=== PATIENT | male | born 1950 | race Caucasian/White ===

== ENCOUNTER 2022-04-26 10:53 | Emergency (ER) | payer MEDICARE, OTHER, SELFPAY ==
[2022-04-26 11:10] VITALS: BP 150/88; PULSE 66; RESP 18; TEMP 36.2; O2SAT 99
--- NOTE | 2022-04-26 11:12 | ED.URI ---
HPI - URI/Sore Throat General Chief Complaint: Upper Respiratory Infection Stated Complaint: sore throat, headache, congestion Time Seen by Provider: 04/26/22 11:12 Source: patient Mode of arrival: ambulatory Limitations: no limitations History of Present Illness HPI Narrative: 71-year-old male presents with complaint of sore throat, headache, fatigue, chills since yesterday. Reports exposure to strep from his 2 granddaughters. Denies nausea vomiting diarrhea. Reports mild congestion but no cough. All systems reviewed and negative except as noted above. Related Data Home Medications Medication Instructions Recorded Confirmed clonidine HCl 0.2 mg tablet 0.2 mg PO BID 04/26/22 04/26/22 loratadine 10 mg tablet (Claritin) 10 mg PO DAILY 04/26/22 04/26/22 losartan 100 1 tablet PO DAILY 04/26/22 04/26/22 mg-hydrochlorothiazide 25 mg tablet meloxicam 7.5 mg tablet 7.5 mg PO BID 04/26/22 04/26/22 metoprolol succinate 50 mg 50 mg PO DAILY 04/26/22 04/26/22 tablet,extended release 24 hr Allergies Allergy/AdvReac Type Severity Reaction Status Date / Time No Known Allergies Allergy Unknown Other Verified 04/26/22 11:09 Review of Systems Review of Systems: CONSTITUTIONAL: Denies fever. Reports chills and fatigue. EYES: Denies visual changes, redness, or discharge. ENT: Denies rhinorrhea, congestion. Reports sore throat. CARDIOVASCULAR: Denies chest pain, palpitations, or edema. RESPIRATORY: Denies cough or dyspnea. GASTROINTESTINAL: Denies abdominal pain, nausea, vomiting, or diarrhea. GENITOURINARY: Denies dysuria or hematuria. SKIN: Denies rash or itching. MUSCULOSKELETAL: Denies back pain, joint pain, or myalgia. NEUROLOGIC: Denies headache, numbness, or weakness. PSYCHIATRIC: Denies anxiety or depression. All other systems reviewed are negative, except as documented in HPI. PMFSH Comments At time of signature, agree with nursing past medical, surgical, social and family history. There is no relevant family history pertinent to the presenting complaint. Exam Narrative: GENERAL: This is a well-nourished, well-developed patient, in no apparent distress. HEAD: normocephalic, atraumatic. EYES: PERRL. Sclera clear/white. Vision is grossly intact. EARS: External ears normal, auditory canals clear and without drainage, TMs normal without perforation. Hearing grossly intact. NOSE: External nose normal with no obvious nasal discharge, nares without redness, no rhinorrhea. THROAT: Mucous membranes moist, erythema and swelling, no exudates. tonsils 1+ bilateral NECK: Neck supple, non-tender without lymphadenopathy, masses or thyromegaly. CARDIOVASCULAR: Regular rate and rhythm without murmurs, gallops, or rubs. RESPIRATORY: Clear to auscultation. Breath sounds equal bilaterally. No wheezes, rales, or rhonchi. SKIN: warm, Dry, intact with no suspicious lesions or rash, good texture and turgor. NEURO: awake, alert, and oriented to person, place and time. There were no obvious focal neurologic abnormalities. EXTREMITIES: No joint tenderness, effusion, or edema noted. Course Course Level of Care: Express Care Visit Vital Signs Vital signs: Vital Signs Temperature 36.2 C L 04/26/22 11:10 Pulse Rate 66 04/26/22 11:10 Respiratory Rate 18 04/26/22 11:10 Blood Pressure 150/88 H 04/26/22 11:10 Pulse Oximetry 99 04/26/22 11:10 Oxygen Delivery Room Air 04/26/22 11:10 Temperature 36.2 C L 04/26/22 11:10 Pulse Rate 66 04/26/22 11:10 Respiratory Rate 18 04/26/22 11:10 Blood Pressure 150/88 H 04/26/22 11:10 Pulse Oximetry 99 04/26/22 11:10 Oxygen Delivery Room Air 04/26/22 11:10 Reviewed MDM - URI/Sore Throat MDM Narrative Medical decision making narrative: Patient is aware of diagnosis, understands and agrees to treatment plan. Anticipatory guidance given. Patient agrees to follow-up as directed and is aware of reasons to seek care at the emergency department. Portions of this rec
== END 2022-04-26 11:28 | disposition home or self-care (01) ==
PROVIDERS: Emergency Provider Nurse Practitioner Family
DX: J02.0 Streptococcal pharyngitis (principal); I10 Essential (primary) hypertension; M10.9 Gout, unspecified
CPT/HCPCS: 99203; G0463

== ENCOUNTER 2023-06-21 12:48 | Outpatient (CLI) | payer MEDICARE, OTHER, SELFPAY ==
--- NOTE | 2023-06-21 13:11 | ECG_ITS ---
Measurements Intervals [place] Rate: 57 P: 41 [place]: 183 QRS: 60 QRSD: 112 T: 7 QT: 400 QTc: 391 Interpretive Statements SINUS BRADYCARDIA OTHERWISE NORMAL ECG NO PREVIOUS ECG AVAILABLE FOR COMPARISON Electronically Signed On 06-21-2023 14:01:44 SALES ENGAGEMENT MANAGER by Jon Bailon M.D.
[2023-06-21 13:39] LABS: Anion Gap 6 mmol/L (8-16); Blood Urea Nitrogen 17 mg/dL (9-20); Calcium 9.3 mg/dL (8.4-10.2); Carbon Dioxide 30 mmol/L (22-30); Chloride 106 mmol/L (98-107); Estimated Glomerular Filt Rate > 60; Glucose 162 mg/dL (65-110); Potassium 4.2 mmol/L (3.4-5.0); Sodium 142 mmol/L (137-145)
== END 2023-06-21 12:49 | disposition home or self-care (01) ==
LOC: ANHSURGERY 12:59
PROVIDERS: Anesthesiology; PCP Family Medicine; Visit Provider Surgery
DX: K40.90 Unilateral inguinal hernia, without obstruction or gangrene, not specified as recurrent (principal); I10 Essential (primary) hypertension; Z01.818 Encounter for other preprocedural examination
CPT/HCPCS: 36415; 80048; 86850; 86900; 86901; 93005

== ENCOUNTER 2023-06-27 01:10 | Day surgery (SDC) | payer MEDICARE, OTHER, SELFPAY ==
--- NOTE | 2023-06-17 14:10 | PC.NURSE ---
Report to the Outpatient Waiting Room, entrance under the green pavilion located off [facility], at time __1000 on date _06/27/23 . Planned Procedure Time: __1200 . Time changes happen often and if your time is changed the preop area will call you the afternoon before. - You and your visitor will be asked to self-screen and do not enter if you have any COVID symptoms. - A mask is optional within the hospital at this time. Patients may have clear liquids (water, carbonated beverages, clear teas, apple juice) until 3 hours prior to surgery(9:00AM) with a maximum of 20 ounces. - No food from midnight until time of surgery - Infants may have breast milk until 4 hours before surgery, infant formula 6 hours prior to surgery. - Children will be allowed to drink immediately following surgery. If applicable, please bring a bottle or sippy cup to assist with drinking. Juice, water, soda, and popsicles are readily available. For infants on formula, please bring formula the day of surgery. Pacifiers are allowed. Take the following medications with a SIP of water the morning of surgery: ___AMLODIPINE,CLONIDINE,METOPROLOL DO NOT STOP ANY OF YOUR OTHER PRESCRIPTION MEDICATIONS PRIOR TO SURGERY ?EXCEPT THE FOLLOWING Medications to discontinue per physician ____ALL VITAMINS AND SUPPLEMENTS 3 DAYS PRE OP .LAST DOSE 06/23/[address] FONG Please no make-up, nail macedonian, hairspray, perfume, deodorant, or body powder the day of surgery. No jewelry (including any body piercings) or valuables the day of surgery, leave them at home. Please take a shower or bath the night before, or the morning of, surgery with an antibacterial soap. Wear comfortable, loose fitting clothing. Children are encouraged to wear pajamas. - Jewelry must be removed prior to entering the operating room. Rings and piercings that are not removed may be cut off. - The hospital will not accept responsibility for valuables. - Please leave all valuables, including medications, at home the day of surgery. If you are going home after surgery, a licensed backhaul driver must drive you home. - NO public transportation without another adult if you receive anesthesia. - We recommend that an adult stay with you for 24 hours following discharge. - We also recommend that you do not drive, make important decision, drink alcoholic beverages, or take any drugs that were not prescribed by your health care provider for at least 24 hours after your discharge time. Follow any additional instructions given to you from your surgeon. If you or anyone in your household have experienced Covid symptoms in the past week, please notify your surgeon or the nurse liaison at the phone number below for possible testing. Telephone instructions given to __PATIENT and asked if any additional questions and then verbalized understanding. Patient advised to call surgeon office or pre surgery nurse liaison [phone] if any additional questions.
[2023-06-17 14:20] VITALS: BMI 28.9
[2023-06-27] VITALS (9 sets, daily range): BP systolic 122–177; BP diastolic 62–97; PULSE 56–77; RESP 12–17; TEMP 35.9–36.3; O2SAT 95–100
[2023-06-27] MEDS: ACETAMINOPHEN 500 MG TABLET 1000 MG PO (10:11)
[2023-06-27] MEDS: LACTATED RINGERS 1,000 ML 30 ML IV CONT ×3 (10:33→14:36)
[2023-06-27] MEDS: KETOROLAC 15 MG/ML VIAL (*BKC) IV PUSH (10:34)
--- NOTE | 2023-06-27 11:12 | WPDHPUPDATE1 ---
History and Physical Update Update Date/Time: 06/27/23 11:12 History and Physical has been reviewed, including an updated exam of the patient. There are NO changes in the patient's condition. Risks, benefits, and alternatives have been discussed and questions answered. Patient agrees to proceed with procedure.
--- NOTE | 2023-06-27 11:34 | P.PNAN_ITS ---
Anes - Initial Pre Proc Eval Procedure: Operation Date: 06/27/23 12:00 Proposed Procedures p Robotic Right Inguinal Hernia Repair with Mesh - Anneliese Dobbs MD Date/Time: 06/27/23 11:34 Surgeon: Anneliese Dobbs MD Pre Op Diagnosis: Rt Ing Hernia Patient Data Age: 72 Gender: M Height: 1.88 m Weight: 100.5 kg Last Vital Signs Temp 35.9 C L 06/27/23 10:37 Pulse 56 L 06/27/23 10:37 Resp 16 06/27/23 10:37 BP 130/81 06/27/23 10:37 Pulse Ox 98 06/27/23 10:37 O2 Del Method Room Air 06/27/23 10:37 Allergies Allergy/AdvReac Type Severity Reaction Status Date / Time No Known Allergies Allergy Unknown Other Verified 06/27/23 09:59 Home Medications Medication Instructions Recorded Confirmed Type clonidine HCl 0.2 mg tablet 0.2 mg PO BID 04/26/22 06/17/23 History loratadine 10 mg tablet (Claritin) 10 mg PO PRN PRN Allergy Symptoms 04/26/22 06/17/23 History losartan 100 1 tablet PO DAILY 04/26/22 06/17/23 History mg-hydrochlorothiazide 25 mg tablet meloxicam 7.5 mg tablet 7.5 mg PO BID 04/26/22 06/17/23 History metoprolol succinate 50 mg 25 mg PO DAILY 04/26/22 06/17/23 History tablet,extended release 24 hr amlodipine 10 mg tablet 10 mg PO DAILY 06/17/23 06/17/23 History multivit,calcium,min-folic acid 1 tablet PO DAILY 06/17/23 06/17/23 History 240 mcg-D3 25 mcg-lycop 300 mcg tablet (One A Day Men Complete) omega-3 fatty acids 1,250 mg PO DAILY 06/17/23 06/17/23 History Patient hx anesthesia problems: none Family hx anesthesia problems: none Results Review: All pre-operative results and documents have been reviewed as part of the pre- operative evaluation. [facility] Past Medical History Medical History Hypertension Surgical History Surgical History History of back surgery Hx of hernia repair Family History Family History Other Diabetes mellitus Hypertension Social History Social History Smoking status: Never smoker Smokeless tobacco user: chewing tobacco Alcohol intake: current Alcohol use details: rarely Living arrangements: with family Occupation/Education: retired Spiritual care concerns: No Anes - Eval Final PreProcedure Day of Procedure 06/27/23 11:34 Patient weight: overweight Heart: regular rate and rhythm Lungs: clear to auscultation Airway: Mallampati scale class II Neurological: alert and oriented Last oral intake: >/= 8 hours ASA classification: II Emergent: no Anesthetic plan: proceed Anesthesia type and monitoring: general ETT and standard monitoring Results Review: All pre-operative results and documents have been reviewed as part of the pre- operative evaluation. Informed Consent: The patient's anesthetic plan and its attendant risks and benefits were discussed with the patient/family/POA. Questions were solicited and answers provided to the satisfaction of the patient/family/POA.
[2023-06-27] MEDS: ONDANSETRON INJ 4 MG/2 ML VIAL IV PUSH (11:42)
[2023-06-27] MEDS: FAMOTIDINE 20 MG/2 ML VIAL IV PUSH (11:42)
[2023-06-27] MEDS: ceFAZolin 2 GM/D5W 50 ML 2 GM/50 ML BAG IVPB (11:52)
[2023-06-27] MEDS: BUPIVACAINE/EPINEPHRINE 0.5% 30 ML VIAL INFILTRATE (12:58)
--- NOTE | 2023-06-27 13:02 | P.OP_ITS ---
Procedure Note - Detailed Date of Procedure 06/27/23 Pre-op Diagnosis Incarcerated right inguinal hernia Post-op Diagnosis Same Procedure Performed robotic assisted incarcerated right inguinal hernia repair with mesh Surgeon Anneliese Dobbs MD Anesthesia General Indications 72-year-old male with progressively worsening right inguinal hernia over the last few years Findings indirect right inguinal hernia with incarcerated loop of small intestine Description of Procedure Patient was brought into the operating room and placed in the supine position. After adequate induction of general anesthesia, the patient was prepped and draped in normal sterile fashion. A time-out was then done to verify the patient's identity, as well as the procedure being performed. Began by making a 8 mm incision in the supraumbilical region, a Veress needle was then placed into the peritoneal cavity. CO2 gas was then insufflated and after adequate pneumoperitoneum was achieved, the Veress needle was removed. I then placed an 8 mm trocar through this incision. I then placed the endoscope through this trocar site and under direct visualization placed 2 further 8 mm ports in the right and left mid abdomen. The [employer] robot was then docked to the 3 trocar sites. I then scrubbed out and went to the robotic console. Upon examining the pelvis, it was noted that the patient had a large right inguinal hernia. Of note, there was a loop of small intestine within the hernia. Using very careful and gentle dissection and traction I was able to reduce the small bowel back into the abdominal cavity. The left side was examined and no hernia defect was noted. I began by making a preperitoneal flap approximately 6 cm superior to the defect. This flap was carried medially past the umbilical ligaments in laterally to the transversalis. It then began dissection of my medial compartment taking this down to the pubic tubercle. I then began the lateral dissection taking this down to the transversalis fascia. Once these compartments were achieved, I began dissection around the cord structures. A large indirect hernia was noted at this point. Using careful dissection, was able to reduce indirect hernia sac off the cord structures. Once this was adequately done, I went ahead and placed a large piece of 3D Max mesh into the abdominal cavity. The mesh was carefully positioned, centering the center of the mesh over the indirect defect. Once this was done, was very satisfied with our repair. Using 3-0 Vicryl sutures, I tacked the mesh medially to Javy's ligament. Two lateral sutures were placed from the mesh to the transversalis fascia. I then closed the peritoneal flap with a running 2.0 V Lock suture. The abdomen was then desufflated, and all ports were removed. All incisions were then closed with the 4.0 monocryl suture. Dermabond was placed on each wound. The patient tolerated the procedure well, was extubated in the operating room postoperatively, and will now be transferred to the recovery room in stable condition. Implants large 3DMax mesh Estimated Blood Loss 10 Drains No Packing No Pathology None sent Complications No immediate complications Condition Stable Disposition PACU [facility] Billing Surgery - Charge Forward: Surgery Billing
[2023-06-27] MEDS: fentaNYL CITRATE INJ (*CRX) 100 MCG/2 ML VIAL 25 MCG IV PUSH ×2 (13:34→13:36)
== END 2023-06-27 15:25 | disposition home or self-care (01) ==
PROVIDERS: PCP Family Medicine; Visit Provider Surgery
PROC: 8E0Y4CZ Robotic Assisted Procedure of Lower Extremity, Percutaneous Endoscopic Approach (ICD-10-PCS; CPT 49650; principal; 2023-06-27 12:00)
DX: K40.30 Unilateral inguinal hernia, with obstruction, without gangrene, not specified as recurrent (principal); I10 Essential (primary) hypertension; F17.220 Nicotine dependence, chewing tobacco, uncomplicated
CPT/HCPCS: 49650; S2900; A9270; C1781; J0690; J1100; J1885; J2001; J2250; J2405; J2704; J3010; J7120

== ENCOUNTER 2023-08-22 12:14 | Outpatient (CLI) | payer MEDICARE, OTHER, SELFPAY ==
--- NOTE | 2023-08-28 18:09 | WPDHOMESLEEP ---
Sleep Study - Home Unattended Date of Study: 08/22/23 Ordering Provider: Shawn Berry DO Interpreting Provider: Dayana Almonte DO Home Sleep Study Type: Watch PAT Height: 1.88 m Weight: 102.058 kg Body Mass Index: 28.8 Neck Circumference (inches): 16 [place]: 10 Reason for Sleep Study Daytime hypersomnia Sleep History The patient is a 73-year-old male that had a sleep study ordered by his primary care physician for evaluation of sleep apnea. The patient denies awakening from sleep short of breath. He denies awakening at night with heartburn, belching or cough. He rarely snores and it is rarely loud enough that others complain. He rarely has trouble sleeping when he has a cold. He denies waking up gasping for air throughout the night. He denies having breathing problems at night observed by himself or others. He rarely sweats excessively at night. He rarely has heart palpitations or irregular heartbeats during the night. He occasionally falls asleep during the day but never while driving. He denies sleep paralysis and cataplexy. He rarely has trouble at school or work due to sleepiness. He occasionally experiences vivid dreamlike scenes upon awakening or falling asleep. He denies feeling afraid of going to sleep. He occasionally remembers his dreams. He occasionally has thoughts racing through his mind. He occasionally feels sad or depressed. He constantly has anxiety. He rarely has muscular tension. He denies noticing parts of his body jerk. He rarely kicks during the night. He occasionally has crawling and aching feelings in his legs and rarely has leg pain during the night. He occasionally grinds his teeth during sleep but never awakens with morning jaw pain. He is occasionally bothered by pain during the day but rarely awakened by pain during the night. He occasionally wakes up feeling stiff in the morning. He occasionally wakes up with sore or achy muscles. He frequently wakes up with pain in the neck, spine and other joints. He goes to bed at 9:30 p.m. on both weekdays and weekends. It takes him 15-30 minutes to fall asleep. He wakes up 3 times throughout the night for unknown reasons but is able to fall right back asleep. He wakes up at 4:00 a.m. on both weekdays and weekends. He typically gets 6.5 hours of sleep per night. He does not stay in bed after waking up in the morning. He currently lives with his . He denies consuming any caffeinated beverages within 2 hours of bedtime. He denies engaging in physical exercise before bedtime. He will read before falling asleep. He denies watching television before falling asleep. He will take naps in the afternoon or the evening and they are refreshing. He consumes 4 cups of coffee per day. He quit using tobacco 40 years ago. He denies alcohol and recreational drug use. [facility] Past Medical History Medical History Hypertension Surgical History Surgical History History of back surgery History of right inguinal hernia robotic assisted incarcerated right inguinal hernia repair with mesh 06/27/23 Dr. Dobbs Family History Family History Father Asthma Hypertension Malignant neoplasm of prostate Sibling Diabetes mellitus Hypertension Breast cancer Social History Social History Social History: caffeine 3-4 cups coffee daily Smoking status: Never smoker Smokeless tobacco user: chewing tobacco Alcohol intake: former Substance use: never Do You Feel Safe in your Home?: No Lack of Transportation: No Lack of Food: Never True Current Housing: I Have Housing Concerned About Future Housing: No Difficulty Paying Gas/Electric Bills: No Difficulty Paying for Meds: No Currently Unemployed: No Educat
[2023-08-28 18:17] VITALS: BMI 28.8
== END 2023-08-23 12:24 | disposition home or self-care (01) ==
LOC: ANHCSM 12:15
PROVIDERS: PCP Family Medicine; Visit Provider Family Medicine
DX: G47.10 Hypersomnia, unspecified (principal); G47.33 Obstructive sleep apnea (adult) (pediatric)
CPT/HCPCS: 95800; 95806

== ENCOUNTER 2024-01-08 08:33 | Outpatient (CLI) | payer MEDICARE, OTHER, SELFPAY ==
[2024-01-08 13:15] LABS: Basophils Absolute Auto 0.1 K/mm3 (0.0-0.1); Eosinophils Absolute Auto 0.8 K/mm3 (0-0.3); Eosinophils Percent Auto 10.7 % (0-4.4); Hematocrit 47.2 % (42.0-52.0); Hemoglobin 14.9 g/dL (14.0-18.0); Immature Granulocyte Absolute 0.02 K/mm3 (0.00-0.031); Immature Granulocyte Percent A 0.3 % (0-0.5); Lymphocytes Absolute Auto 2.23 K/mm3 (0.9-3.2); Lymphocytes Percent Auto 28.8 % (18.3-44.2); Mean Corpuscular HGB Conc 31.6 g/dl (32-36); Mean Corpuscular Hemoglobin 28.5 pg (26-34); Mean Corpuscular Volume 90.4 fl (80-100); Mean Platelet Volume 10.7 fl (7.4-10.4); Monocytes Absolute Auto 0.6 K/mm3 (0.1-0.6); Monocytes Percent Auto 7.8 % (2.6-8.5); Neutrophils Percent Auto 51.4 % (45.5-73.1); Platelet Count Result 317 k/mm3 (150-375); Red Blood Count 5.22 M/mm3 (4.6-6.20); Red Cell Distribution Width 14.6 % (11.5-14.5); White Blood Count 7.7 K/mm3 (4.5-10.0)
[2024-01-08 13:43] LABS: Alanine Aminotransferase 29 U/L (6-50); Albumin Level 4.3 g/dL (3.5-5.1); Alkaline Phosphatase 101 U/L (38-126); Anion Gap 11 mmol/L (4-12); Aspartate Amino Transferase 36 U/L (17-59); Bilirubin,Total 0.6 mg/dL (0.2-1.3); Blood Urea Nitrogen 24 mg/dL (9-20); Calcium 9.3 mg/dL (8.4-10.2); Carbon Dioxide 27 mmol/L (22-30); Chloride 103 mmol/L (98-107); Cholesterol 174 mg/dL (0-200); Estimated Glomerular Filt Rate > 60; Glucose 109 mg/dL (65-110); HDL Direct 52 mg/dL; Sodium 141 mmol/L (137-145); Triglycerides 48 mg/dL (<150)
[2024-01-08 13:59] LABS: LDL Cholesterol Direct 101 mg/dL
[2024-01-08 14:21] LABS: Prostate Specific Antigen 1.2 ng/mL (< OR = 4.0)
== END 2024-01-08 08:34 | disposition home or self-care (01) ==
LOC: ANHGOSHLAB 08:34
PROVIDERS: PCP Family Medicine; Visit Provider Family Medicine
DX: R53.83 Other fatigue (principal); Z13.228 Encounter for screening for other metabolic disorders; E78.5 Hyperlipidemia, unspecified; Z12.5 Encounter for screening for malignant neoplasm of prostate
CPT/HCPCS: 36415; 80053; 80061; 84153; 85025; G0103

== ENCOUNTER 2024-05-28 15:38 | Outpatient (CLI) | payer MEDICARE, OTHER, SELFPAY ==
[2024-05-28 20:39] LABS: Alanine Aminotransferase 26 U/L (6-50); Albumin Level 4.3 g/dL (3.5-5.1); Alkaline Phosphatase 116 U/L (38-126); Anion Gap 9 mmol/L (4-12); Aspartate Amino Transferase 24 U/L (17-59); Bilirubin,Total 0.5 mg/dL (0.2-1.3); Blood Urea Nitrogen 15 mg/dL (9-20); Calcium 9.4 mg/dL (8.4-10.2); Carbon Dioxide 24 mmol/L (22-30); Chloride 105 mmol/L (98-107); Estimated Glomerular Filt Rate > 60; Glucose 108 mg/dL (65-110); Potassium 3.8 mmol/L (3.4-5.0); Sodium 138 mmol/L (137-145)
[2024-05-28 20:56] LABS: Vitamin D 25 Hydroxy 32.2 ng/mL
[2024-05-28 21:16] LABS: Hemoglobin A1C 6.3 % (<5.7)
== END 2024-05-28 15:39 | disposition home or self-care (01) ==
LOC: ANHGOSHLAB 15:39
PROVIDERS: PCP Family Medicine; Visit Provider Family Medicine
DX: R73.9 Hyperglycemia, unspecified (principal); I10 Essential (primary) hypertension; E53.8 Deficiency of other specified B group vitamins; E55.9 Vitamin D deficiency, unspecified
CPT/HCPCS: 36415; 80053; 82306; 82607; 83036; 84443

== ENCOUNTER 2024-07-27 12:56 | Outpatient (CLI) | payer MEDICARE, OTHER, SELFPAY ==
--- OUTSIDE RECORDS SUMMARY | 2024-07-27 14:56 | XMS_ITS | Patient Health Summary ---
Author Organization [facility] Address [address] [place] [address] Care Team Providers Care Jackerman Name Role Phone Curt Neri MD Primary Care Provider [phone] Note from [facility] [place],non-owned Affiliates and Associated Physician Practices is amultiple site organization consisting of ambulatory clinics and hospital sitesin [place], [place], [place] and [place]. This disclosure is being madepursuant to the Care Everywhere program and may not contain all information available regarding this patient. Last updated 18.[facility] [employer] Allergies No known active allergies Medications * Be aware that medications may not be up to date on this document. Alwaysverify current medications with the patient. * MELOXICAM PO * Febuxostat (ULORIC PO) Social History Tobacco Use Types Packs/Day Years Used Date Smoking Tobacco: Former Smokeless Tobacco: Never Sex and Gender Information Value Date Recorded Sex Assigned at Not on file Gender Identity Not on file Sexual Orientation Not on file Last Filed Vital Signs Vital Sign Reading Time Taken Comments Blood Pressure 140/80 02/07/2018 11:35 AM CDT Pulse 60 02/07/2018 11:35 AM CDT Temperature 36.7 C (98 F) 02/07/2018 11:35 AM CDT Respiratory Rate 16 02/07/2018 11:35 AM CDT Oxygen Saturation 98% 02/07/2018 11:35 AM CDT Inhaled Oxygen Concentration - - Weight 102.1 kg (225 lb) 02/07/2018 11:35 AM CDT Height 188 cm (6' 2 ) 02/07/2018 11:35 AM CDT Body Mass Index 28.89 02/07/2018 11:35 AM CDT Care Teams Jackerman Relationship Specialty Start Date End Date Curt Neri MD [address] [place] [phone] PCP - General Family Medicine 02/07/18
--- OUTSIDE RECORDS SUMMARY | 2024-07-27 14:56 | XMS_ITS | Continuity of Care Document ---
Author Organization [facility] Address [address] [place] [address] Phone Care Team Providers Care Broiler Manager Name Role Phone Jerad PEACE Radha Unavailable Unavailable Allergies, Adverse Reactions, Alerts [...] Diagnoses Date Provider Providers Copied on Encounter [facility], [address], [place], [place], [address], tel:[phone] SEC [place] Professional Post-Op (chief complaint) Post op visit 4 Jerad OD Radha. [address], [address], [place], [place], [address], [place]. tel:[phone] Referring Provider: Twyla Crenshaw OD, [address], [address]. tel:[phone] [facility], [address], [place], [place], [address], [place] tel:[phone] SEC [place] Professional 1 Day CE/IOL PO (chief complaint) Post op visit 4 Jerad OD Radha. [address], [address], [place], [place], [address], [place]. tel:[phone] Referring Provider: Twyla Crenshaw OD, [address], [address]. tel:[phone] [facility], [address], [place], [place], [address], tel:[phone] [facility] [place] No Information 4 Betty Lira. [address], [address], [place], [place], [address], [place]. tel:[phone] Referring Provider: Twyla Crenshaw OD, [address], [place], [address]. tel:[phone] [facility], [address] [employer], [place], [place], [address], [place] tel:[phone] SEC [place] No Information Aug- 4 Betty Pankaj. [address] [employer], [address], [place], [place], [address], [place]. tel:[phone] Referring Provider: Agustin Crenshaw OD, [address], [address]. tel:[phone] [facility], [facility] [employer] [facility] [address], [place], [place], [address], [place] tel:[phone] SEC Royal DANIELLE Professional Post-Op (chief complaint) Post op visit Aug-0 4 Cate OD Carly. [address] [place], [place] [address] [address], [address], [place], [place], [address], [place]. tel:[phone] Referring Provider: Twyla Crenshaw OD, [address], [place], [address]. tel:[phone] [facility], [address], [place], [place], [address], [place] tel:[phone] SEC Royal DANIELLE Professional 1 Day CE/IOL PO (chief complaint) Post op visit Jul-2 4 Jerad OD Radha. [facility] [employer], [address], [place], [place], [address], [place]. tel:[phone] Referring Provider: Twyla Crenshaw OD, [facility] [address] [place] [address], [place], [address]. tel:[phone] [facility], [address] [place] [address], [place], [place], [address], [place] tel:[phone] [facility] [place] No Information Jul- 4 Betty Pankaj. [address], [address], [place], [place], [address], [place]. tel:[phone] Referring Provider: Twyla Crenshaw OD, [facility] [address] [facility], [place], [address]. tel:[phone] [facility], [address] [place] [address], [place], [place], [address], [place] tel:[phone] [place] No Information 4 Boswell Pankaj. [address], [address], [place], [place], [address], [place]. tel:[phone] Referring Provider: Agustin Crenshaw OD, [address], [address]. tel:[phone] [facility], [address] [place] [address], [place], [place], [address], [place] tel:[phone] [place] No Information 4 Betty Pankaj. [address], [address], [place], [place], [address], [place]. tel:[phone] Office/outpa tient Visit, [facility], [address] [place] [address], [place], [place], [address], [place] tel:[phone] SEC [place] SHASHI Professional Cataract evaluation (chief complaint) Age-related nuclear cataract, bilateralCho rioretinal scar of right eye 4 Betty Pankaj. [address] [place] [address], [address], [place], [place], [address], [place]. tel:[phone] Referring Provider: Twyla Crenshaw OD, [facility] [address] [facility], [place], [address]. tel:[phone] [facility], [address] [place] [address], [place], [place], [address], [place] tel:[phone] SEC Edgardo BONDS No Information 3 Betty Lira. [address], [address], [place], [place], [address], [place]. tel:[phone] Referring Provider: Agustin Crenshaw OD, [address], [address]. tel:[phone] Family History Family Member Type Diagnosis Age At Onset Problem Family history of Diabetes m juana Payers Payer name Insurance type Covered democrat ID Authoriza tion(s) No Information Social History [...] counseling completed Goal Tobacco cessation counseling completed History Of Present Illness Encounter Date Complaint [...]
--- OUTSIDE RECORDS SUMMARY | 2024-07-27 14:56 | XMS_ITS | Clinical Summary ---
Author Organization [facility] Address [address] [place] [address] Phone Care Team Providers Care Groundhand Name Role Phone LAURITA YOUNGBLOOD MD Primary Care Provider [phone] Reason for Visit and Chief Complaint CHART UPDATE Problems Includes: Problems addressed during this encounter and other active Problems All Visits Onset Date Resolved Date Provider Condition S tatus Spinal Stenosis Lumbosacral 10/08/2014 LAURITA YOUNGBLOOD MD Active Last Documented On 10/08/2014 12:25AM ; [facility] Note: Unchanged Lumbago 08/25/2014 LAURITA YOUNGBLOOD MD Active Last Documented On 08/25/2014 11:39AM ; [facility] Note: Unchanged Osteoarthritis Knee 07/07/2013 ADOLFO HERMOSILLO MD Active Last Documented On 04/27/2021 3:36PM ; [facility] Note: Unchanged - -right 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 07/07/2013 LAURITA YOUNGBLOOD MD Active Last Documented On 11/23/2019 1:09AM ; [facility] Note: Unchanged Gout 03/03/2012 LAURITA YOUNGBLOOD MD Active Last Documented On 03/03/2012 3:18PM ; [facility] Note: Unchanged Osteoarthritis Ankle / Foot (Multiple Joints) 03/03/2012 LAURITA YOUNGBLOOD MD Active Last Documented On 03/03/2012 3:18PM ; [facility] Note: Unchanged - BILATERAL FEET Sinus Bradycardia 03/09/2010 LAURITA YOUNGBLOOD MD Active Last Documented On 03/09/2010 1:06PM ; [facility] Note: Unchanged Essential Hypertension Benign 03/09/2010 LAURITA YOUNGBLOOD MD Active Last Documented On 03/09/2010 1:06PM ; [facility] Note: Unchanged Nicotine Dependence in Remission 03/09/2010 LAURITA YOUNGBLOOD MD Active Last Documented On 07/02/2013 4:24PM ; [facility] Note: Unchanged - 1-2 TJ YR HX QUIT 198 0 Plan of Treatment No Plan of Treatment Recorded Assessments Includes: Assessments from this encounter No Assessments Recorded Medical Equipment - Implanted Devices Includes: Current Devices No Medical Equipment Recorded Medications Includes: Medications discussed during this encounter and other current Medications Current Medications (continue as prescribed) amLODIPine Besylate 10 MG Oral Tablet 10/07/2023 Provider: LAURITA YOUNGBLOOD MD Diagnosis: Essential (prima ry) hypertension TAKE 1 TABLET BY MOUTH EVERY DAY Last Documented On 10/07/2023 5:21AM By J LUIS YOUNGBLOOD MD ; [facility] Daily Multivitamin Oral Capsule 12/05/2020 Provider: Diagnosis: Last Documented On 12/05/2020 8:27AM By Josefa Narayan Roxy ; [facility] ZyrTEC Allergy 10 MG Oral Capsule 11/04/2019 Provide r: Diagnosis: Last Documented On 11/04/2019 8:36AM By Kailyn Clay Roxy ; [facility] Medications Administered Includes: Administered Medications from this encounter No Administered Medications Recorded Results Includes: Results discussed during this encounter No Results Recorded For Specified Dates History of Present Illness Includes: History of Present Illness from this encounter No History of Present Illness Recorded Social History No Social History Recorded - Smoking Status Unknown Medical History Includes: Medical History addressed during this encounter No Medical History Recorded Family History Includes: Family History addressed during this encounter No Family History Recorded Review of Systems Includes: Review of Systems from this encounter No Review of Systems Recorded Mental Status Includes: Mental Status from this encounter No Mental Status Recorded Functional Status Includes: Functional Status from this encounter No Functional Status Recorded Physical Exam Includes: Physical Exam from this encounter No Physical Exam Recorded Immunizations Includes: Immunizations addressed during this encounter Vaccine Dose # Date Site Reaction(s) Status Source Fluad, Quadravalent 1 02/26/2023 Right Deltoid Complete (Reported) Patient Last Documented On 3 8:58AM ; [facility] Fluzone High-dose Quadrivalent 1 01/26/2020 Left Deltoid Complete (Reported) Pat ient Last Documented On 3 8:58AM ; [facility] Fluzone High-dose Quadrivalent 2 02/15/2021 Left Deltoid Complete (Reported) Pat ient Last Documented On 3 8:58AM ; [facility] Fluzone High-dose Quadrivalent 3 02/11/2022 Left Deltoid Complete (Reported) Pat ient Last Documented On 3 8:58AM ; [facility] Influenza (High dose ) PF 2 02/26/2018 Left Deltoid Complete (Reported) Patient Last Documented On 3 8:58AM ; [facility] Influenza (High dose ) PF 3 02/17/2019 Left Deltoid Complete (Reported) Patient Last Documented On 3 8:58AM ; [facility] Influenza (Trivalent) split virus-PF (ID) 1 03/07/2016 Left Deltoid Complete (Reported) Pa tient Last Documented On 3 8:58AM ; [facility] Tdap (Boostrix) 1 04/28/2013 Left Deltoid Complete (Reported) Patient Last Documented On 3 8:58AM ; [facility] Allergies Includes: Active Allergies Substance Type Reaction Onset Date Resolved Date Statu s SEASONAL Allergy 11/04/2019 Active Last Documented On 4 10:43AM ; [facility] Encounters Encounter Provider Location Date Check-In Time Check-Out Time Diagnosis CHART UPDATE LAURITA YOUNGBLOOD MD 03/12/2023 8:57AM 11:59PM Insurance Includes: Active Insurance Policies Plan Name Member ID Group # Subscriber Relationship Effect guy Dates 1 - MEDICARE PART A CLAIMS/NGS [id number] LEIA Goddard 07/18/2017 - Unknown 2 - [employer] [id number] LEIA Goddard Clinical Notes Includes: Clinical Notes from this encounter No Clinical Notes Recorded
--- OUTSIDE RECORDS SUMMARY | 2024-07-27 14:56 | XMS_ITS | Clinical Summary ---
Author Organization [facility] Address [address] [place] [address] Phone Care Team Providers Care Knife Edger Name Role Phone LAURITA YOUNGBLOOD MD Primary Care Provider [phone] Reason for Visit and Chief Complaint IMMUNIZATIONS Problems Includes: Problems addressed during this encounter and other active Problems All Visits Onset Date Resolved Date Provider Condition S tatus Spinal Stenosis Lumbosacral 10/08/2014 LAURITA YOUNGBLOOD MD Active Last Documented On 10/08/2014 12:25AM ; [facility] Note: Unchanged Lumbago 08/25/2014 LAURITA YOUNGBLOOD MD Active Last Documented On 08/25/2014 11:39AM ; [facility] Note: Unchanged Osteoarthritis Knee 07/07/2013 ADOLFO HERMOSILLO MD Active Last Documented On 04/27/2021 3:36PM ; [facility] Note: Unchanged - -right 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 07/07/2013 LAURITA YOUNGBLOOD MD Active Last Documented On 11/23/2019 1:09AM ; [facility] Note: Unchanged Gout 03/03/2012 LAURITA YOUNGBLOOD MD Active Last Documented On 03/03/2012 3:18PM ; [facility] Note: Unchanged Osteoarthritis Ankle / Foot (Multiple Joints) 03/03/2012 LAURITA YOUNGBLOOD MD Active Last Documented On 03/03/2012 3:18PM ; [facility] Note: Unchanged - BILATERAL FEET Sinus Bradycardia 03/09/2010 LAURITA YOUNGBLOOD MD Active Last Documented On 03/09/2010 1:06PM ; [facility] Note: Unchanged Essential Hypertension Benign 03/09/2010 LAURITA YOUNGBLOOD MD Active Last Documented On 03/09/2010 1:06PM ; [facility] Note: Unchanged Nicotine Dependence in Remission 03/09/2010 LAURITA YOUNGBLOOD MD Active Last Documented On 07/02/2013 4:24PM ; [facility] Note: Unchanged - 1-2 TJ YR HX [...] 5:21AM By J LUIS YOUNGBLOOD MD ; [facility] Daily Multivitamin Oral Capsule 12/05/2020 Provider: Diagnosis: Last Documented On 12/05/2020 8:27AM By Josefa Narayan Roxy ; [facility] ZyrTEC Allergy 10 MG Oral Capsule 11/04/2019 Provide r: Diagnosis: Last Documented On 11/04/2019 8:36AM By Kailyn BARBA ; [facility] Medications Administered Includes: Administered Medications from this [...] Dose # Date Site Reaction(s) Status Source COVID-19, unspecified 1 02/27/2023 Left Arm Complete (Reported) Patient Last Documented On 02/27/2023 2:30PM ; [facility] Note: Pt got Covid booster at [facility]. Allergies Includes: Active Allergies Substance Type Reaction Onset Date Resolved Date Statu s SEASONAL Allergy 11/04/2019 Active Last Documented On 4 10:43AM ; [facility] Encounters Encounter Provider Location Date Check-In Time Check-Out Time Diagnosis IMMUNIZATIONS LAURITA YOUNGBLOOD MD 02/27/2023 2:27PM 11:59PM Insurance Includes: Active Insurance Policies Plan Name Member ID Group # Subscriber Relationship Effect guy Dates 1 - MEDICARE PART A CLAIMS/NGS [id number] LEIA Goddard 07/18/2017 - Unknown 2 - [employer] [id number] LEIA Goddard Clinical Notes Includes: Clinical Notes from this encounter No Clinical Notes Recorded
--- OUTSIDE RECORDS SUMMARY | 2024-07-27 14:56 | XMS_ITS | Clinical Summary ---
Author Organization [facility] Address [address] [place] [address] Phone Care Team Providers Care Staffing Specialist Name Role Phone LAURITA YOUNGBLOOD MD Primary Care Provider [phone] Reason for Visit and Chief Complaint * PHONE CALL Problems Includes: Problems addressed during this encounter and other active Problems All Visits Onset Date Resolved Date Provider Condition S tatus Spinal Stenosis Lumbosacral 10/08/2014 LAURITA YOUNGBLOOD MD Active Last Documented On 10/08/2014 12:25AM ; [facility] Note: Unchanged Lumbago 08/25/2014 LAURITA YOUNGBLOOD MD Active Last Documented On 08/25/2014 11:39AM ; [facility] Note: Unchanged Osteoarthritis Knee 07/07/2013 ADOLFO HERMOSILLO MD Active Last Documented On 04/27/2021 3:36PM ; [facility] Note: Unchanged - -right 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 07/07/2013 LAURITA YOUNGBLOOD MD Active Last Documented On 11/23/2019 1:09AM ; [facility] Note: Unchanged Gout 03/03/2012 LAURITA YOUNGBLOOD MD Active Last Documented On 03/03/2012 3:18PM ; [facility] Note: Unchanged Osteoarthritis Ankle / Foot (Multiple Joints) 03/03/2012 LAURITA YOUNGBLOOD MD Active Last Documented On 03/03/2012 3:18PM ; [facility] Note: Unchanged - BILATERAL FEET Sinus Bradycardia 03/09/2010 LAURITA YOUNGBLOOD MD Active Last Documented On 03/09/2010 1:06PM ; [facility] Note: Unchanged Essential Hypertension Benign 03/09/2010 LAURITA YOUNGBLOOD MD Active Last Documented On 03/09/2010 1:06PM ; [facility] Note: Unchanged Nicotine Dependence in Remission 03/09/2010 LAURITA YOUNGBLOOD MD Active Last Documented On 07/02/2013 4:24PM ; [facility] Note: Unchanged - 1-2 TJ YR [...] 5:21AM By J LUIS YOUNGBLOOD MD ; [facility] Daily Multivitamin Oral Capsule 12/05/2020 Provider: Diagnosis: Last Documented On 12/05/2020 8:27AM By Josefa Narayan Roxy ; [facility] ZyrTEC Allergy 10 MG Oral Capsule 11/04/2019 Provide r: Diagnosis: Last Documented On 11/04/2019 8:36AM By Kailyn Clay Roxy ; [facility] Past Medications on file cloNIDine HCl 0.2 MG Oral Tablet 08/02/2023 - 01/29/2024 Provider: LAURITA YOUNGBLOOD MD Diagnosis: Essential (prima ry) hypertension TAKE 1 TABLET BY MOUTH TWICE A DAY Last Documented On 08/02/2023 1:14AM By J LUIS YOUNGBLOOD MD ; [facility] Metoprolol Succinate ER 25 MG Oral Tablet Extended Release 24 Hour 08/02/2023 - 01/29/2024 Provider: LAURITA YOUNGBLOOD MD Diagnosis: Essential (prima ry) hypertension TAKE 1 TABLET BY MOUTH EVERY DAY Last Documented On 08/02/2023 1:14AM By J LUIS YOUNGBLOOD MD ; [facility] Losartan Potassium-HCTZ 100-25 MG Oral Tablet 06/18/2023 - 12/15/2023 Provider: LAURITA YOUNGBLOOD MD Diagnosis: Essential (prima ry) hypertension TAKE 1 TABLET BY MOUTH EVERY DAY Last Documented On 06/18/2023 1:23PM By J LUIS YOUNGBLOOD MD ; [facility] Meloxicam 7.5 MG Oral Tablet 06/18/2023 - 12/15/2023 Amina yo: LAURITA YOUNGBLOOD MD Diagnosis: TAKE 1 TABLET BY MOUTH TWICE A DAY Last Documented On 06/18/2023 1:23PM By J LUIS YOUNGBLOOD MD ; [facility] Medications Administered Includes: Administered Medications from this [...] from this encounter No Physical Exam Recorded Allergies Includes: Active Allergies Substance Type Reaction Onset Date Resolved Date Statu s SEASONAL Allergy 11/04/2019 Active Last Documented On 10:43AM ; [facility] Encounters Encounter Provider Location Date Check-In Time Check-Out Time Diagnosis * PHONE CALL LAURITA YOUNGBLOOD MD 01/25/2023 10:45AM 11:59PM Insurance Includes: Active Insurance Policies Plan Name Member ID Group # Subscriber Relationship Effect guy Dates 1 - MEDICARE PART A CLAIMS/NGS [id number] LEIA Goddard 07/18/2017 - Unknown 2 - [employer] [id number] LEIA Goddard Clinical Notes Includes: Clinical Notes from this encounter * Progress note Date Encounter Last Documented by 01/25/2023 * PHONE CALL Last documented on 03/22/2023; 1:02 PM, LAURITA YOUNGBLOOD MD; [facility] Active Problems & Conditions - Essential Hypertension Benign - Gout - Lumbago - Nicotine Dependence in Remission - 1-2 TJ YR HX QUIT 1979 - Osteoarthritis Ankle / Foot (Multiple Joints) - BILATERAL FEET - Osteoarthritis Knee - -right - Sinus Bradycardia - Spinal Stenosis Lumbosacral - 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 He also stated at his recent appt there was concern for gout in his hand. Well his hand is worse and now in his left hand. pt phone # for return call: [phone] Date/Initials: BP, RMA. Current Medication - amLODIPine Besylate 10 MG Oral Tablet One tablet daily, 30 days, 2 refills - cloNIDine HCl 0.2 MG Oral Tablet TAKE 1 TABLET BY MOUTH TWICE A DAY, 90 days, 1 refills - Daily Multivitamin Oral Capsule 1 capsule daily 0 days, 0 refills - Losartan Potassium-HCTZ 100-25 MG Oral Tablet TAKE 1 TABLET BY MOUTH EVERY DAY, 90 days, 1 refills - Meloxicam 7.5 MG Oral Tablet TAKE 1 TABLET BY MOUTH TWICE A DAY, 90 days, 1 refills - Metoprolol Succinate ER 50 MG Oral Tablet Extended Release 24 Hour TAKE 1 TABLET BY MOUTH EVERY DAY-DUE FOR APPT, 90 days, 1 refills - ZyrTEC Allergy 10 MG Oral Capsule 0 days, 0 refills Allergies - SEASONAL Plan StartCited - Other PHY ORDER/COMMENT ARE HIS HANDS AND FINGERS BOTHERTING HIM OR DID THEY CALM DOWN SOME EndCited
--- OUTSIDE RECORDS SUMMARY | 2024-07-27 14:56 | XMS_ITS | Clinical Summary ---
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 Also get a lab order for yearly labs Problems Includes: Problems addressed during this encounter and other active Problems Current Visit Onset Date Resolved Date Provider Conditio n Status Spinal Stenosis Lumbosacral 10/08/2014 LAURITA NERI MD Active Last Documented On 10/08/2014 12:25AM ; [facility] Note: Unchanged Gout 03/03/2012 LAURITA NERI MD Active Last Documented On 03/03/2012 3:18PM ; [facility] Note: Unchanged Sinus Bradycardia 03/09/2010 LAURITA NERI MD Active Last Documented On 03/09/2010 1:06PM ; [facility] Note: Unchanged Essential Hypertension Benign 03/09/2010 LAURITA NERI MD Active Last Documented On 03/09/2010 1:06PM ; [facility] Note: Unchanged Reported Family History of Heart Disease 03/09/2010 LAURITA NERI MD Inactive Last Documented On 08/25/2014 10:32AM ; [facility] Note: Unchanged Past Visits Onset Date Resolved Date Provider Condition Status Lumbago 08/25/2014 LAURITA NERI MD Active Last Documented On 08/25/2014 11:39AM ; [facility] Note: Unchanged Osteoarthritis Knee 07/07/2013 ADOLFO HERMOSILLO MD Active Last Documented On 04/27/2021 3:36PM ; [facility] Note: Unchanged - -right 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 07/07/2013 LAURITA NERI MD Active Last Documented On 11/23/2019 1:09AM ; [facility] Note: Unchanged Osteoarthritis Ankle / Foot (Multiple Joints) 03/03/2012 LAURITA NERI MD Active Last Documented On 03/03/2012 3:18PM ; [facility] Note: Unchanged - BILATERAL FEET Nicotine Dependence in Remission 03/09/2010 LAURITA NERI MD Active Last Documented On 07/02/2013 4:24PM ; [facility] Note: Unchanged - 1-2 TJ YR HX QUIT 198 0 Plan of Treatment No Plan of Treatment Recorded Assessments Includes: Assessments from this encounter Findings - Sinus bradycardia [I49.8 - Other specified cardiac arrhythmias] - Last Documented On 02/08/2023 2:37AM ; [facility] - Benign essential hypertension [I10 - Essential (primary) hypertension] - Last Documented On 02/08/2023 2:37AM ; [facility] - Gout [M10.9 - Gout, unspecified] - Last Documented On 02/08/2023 2:37AM ; [facility] - Lumbosacral spinal stenosis [M48.07 - Spinal stenosis, lumbosacral region] - Last Documented On 02/08/2023 2:37AM ; [facility] Medical Equipment - Implanted Devices Includes: Current Devices No Medical Equipment Recorded Medications Includes: Medications discussed during this encounter and other current Medications New / Renewed during this visit LAURITA NERI MD on 01/14/2023 amLODIPine Besylate 10 MG Oral Tablet Provider: LAURITA NERI MD 30 day supply: 30 tablet, 2 refills Diagnosis: Essential (primary) hypertension One tablet daily Pharmacy: [address], [address] - Last Documented On 01/30/2023 2:47PM By J LUIS NERI MD ; [facility] Current Medications (continue as prescribed) amLODIPine Besylate 10 MG Oral Tablet 10/07/2023 Provider: LAURITA NERI MD Diagnosis: Essential (prima ry) hypertension TAKE 1 TABLET BY MOUTH EVERY DAY Last Documented On 10/07/2023 5:21AM By J LUIS NERI MD ; [facility] Daily Multivitamin Oral Capsule 12/05/2020 Provider: Diagnosis: Last Documented On 12/05/2020 8:27AM By Josefa Narayan Roxy ; [facility] [employer] Allergy 10 MG Oral Capsule 11/04/2019 Provide r: Diagnosis: Last Documented On 11/04/2019 8:36AM By Kailyn Clay Roxy ; [facility] Past Medications on file cloNIDine HCl 0.2 MG Oral Tablet 08/02/2023 - 01/29/2024 Provider: LAURITA NERI MD Diagnosis: Essential (prima ry) hypertension TAKE 1 TABLET BY MOUTH TWICE A DAY Last Documented On 08/02/2023 1:14AM By J LUIS NERI MD ; [facility] Metoprolol Succinate ER 25 MG Oral Tablet Extended Release 24 Hour 08/02/2023 - 01/29/2024 Provider: LAURITA NERI MD Diagnosis: Essential (prima ry) hypertension TAKE 1 TABLET BY MOUTH EVERY DAY Last Documented On 08/02/2023 1:14AM By J LUIS NERI MD ; [facility] Losartan Potassium-HCTZ 100-25 MG Oral Tablet 06/18/2023 - 12/15/2023 Provider: LAURITA NERI MD Diagnosis: Essential (prima ry) hypertension TAKE 1 TABLET BY MOUTH EVERY DAY Last Documented On 06/18/2023 1:23PM By J LUIS NERI MD ; [facility] Meloxicam 7.5 MG Oral Tablet 06/18/2023 - 12/15/2023 P rovider: LAURITA NERI MD Diagnosis: TAKE 1 TABLET BY MOUTH TWICE A DAY Last Documented On 06/18/2023 1:23PM By J LUIS NERI MD ; [facility] Medications Administered Includes: Administered Medications from this encounter No Administered Medications Recorded Vital Signs Includes: Vital Signs from this encounter Vital Name 01/14/2023 09:51A Blood Pressure Sitting L 144/86 BP Cuff Size Large Pulse Rate-Sitting (bpm) 61 Pulse Rhythm Regular Height (in) 74 Weight (lb) 229 Body Mass Index 29.4 Body Surface Area 2.3 Oxygen Saturation (%) 95 Last Documented: On 01/14/2023 9:59AM ; [facility] Results Includes: Results discussed during this encounter No Results Recorded For Specified Dates History of Present Illness Includes: History of Present Illness from this encounter HPI LEIA PENG is a 72 year old male. - Allergy list reviewed - Medication list reviewed - Feeling fine - Post-void dribbling - Stiffness of the hand - Back pain - No fever - No ear symptoms - No nasal symptoms - , and No throat symptoms - No chest pain or discomfort - and No palpitations - No dyspnea - and No cough - No heartburn - No nausea - No vomiting - No abdominal pain - No diarrhea - , and No constipation - No skin symptoms The patient is a 72 years old male with a history of essential hypertension, presents today for a checkup. His blood pressure was 144/86mmHg in the clinic today. He checks his blood pressure regularly at home which ranges in 16-160\80-90mmHg. He has been taking losartan 100-25mg, metoprolol 50mg, and clonidine 0.2mg QD with efficacy. He tried taking amlodipine 5mg in the past. He states that he ate a banana and drank coffee at 6am today. The patient reports mild urinary emptying issues. He states that he usually have 1 urination episode during the night time, however it increases to 3-4 times with increased water intake before bed. He has a history of osteoarthritis. He has been taking meloxicam with efficacy. He has spinal stenosis lumbosacral. He had an L4-L5 back surgery done on 04/19/2007. He follows up with his orthopedic surgeon for back pain. As per the patient, his back pain is constantly ongoing. He reports arthritis pain in his hands. The patient has a history of gout. He denies any recent flare ups. He took allopurinol in the past. His blood work done on 12/11/2021 showed mildly elevated HbA1c at 6.1. He denies any other acute concerns today. He denies any chest pain, cough, or shortness of breath. He denies any bowel. He takes sound sleep at night. Overall, he has been doing well. Social History Description Last Updated Former smoker 02/23/2021 Last Documented On 3 9:49AM ; [facility] Stopped smoking 40 years ago 02/23/2021 Last Documented On 3 9:49AM ; [facility] Non-smoker 11/04/2019 Last Documented On 3 9:49AM ; [facility] Good exercise habits 06/24/2017 Last Documented On 3 9:49AM ; [facility] No caffeine use 06/24/2017 Last Documented On 3 9:49AM ; [facility] Not using drugs 06/24/2017 Last Documented On 3 9:49AM ; [facility] Social history unchanged 06/24/2017 Last Documented On 3 9:49AM ; [facility] Smoking Status Unknown Procedures and Surgical History Includes: Procedures from this encounter Procedures Code Diagnosis Performing Provider Service L ocation Service Date plan of care reviewed and agreed to Last Documented On 3 10:11AM ; [facility] standardized depression screening: negative for symptoms [id number] Last Documented On 3 9:49AM ; [facility] screening for adult depression: impressi on and score 0 Last Documented On 3 9:49AM ; [facility] Reviewed & agreed to staff entries. Last Documented On 3 10:11AM ; [facility] Clinical summary provided to patient Last Documented On 3 10:11AM ; [facility] Surgical History Last Updated History of back surgery 04/19/200703/23 Last Documented On 3 9:49AM ; [facility] Medical History Includes: Medical History addressed during this encounter Description Last Updated Has a fear of falling. 07/19/2021 Last Documented On 3 9:49AM ; [facility] Blood pressure was high 04/27/2021 Last Documented On 3 9:49AM ; [facility] Hypertension 04/27/2021 Last Documented On 3 9:49AM ; [facility] Taking medication for high blood pressur e 04/27/2021 Last Documented On 3 9:49AM ; [facility] Has had no fall in the last 12 months. 0 11/04/2019 Last Documented On 3 9:49AM ; [facility] No recent change in medical history 09/2017 Last Documented On 3 9:49AM ; [facility] Surgery BACK SURGERY 05/08/07 03/23/2010 Last Documented On 3 9:49AM ; [facility] Family History Includes: Family History addressed during this encounter Description Last Updated Family history unchanged 09/12/2016 Last Documented On 3 9:49AM ; [facility] Family history of hypertension 0 Last Documented On 3 9:49AM ; [facility] Heart disease 03/23/2010 Last Documented On 3 9:49AM ; [facility] Review of Systems Includes: Review of Systems from this encounter Systemic: No fever, no chills, and no recent weight change. Head: No headache. Otolaryngeal: No earache, no nasal discharge, and no sore throat. Cardiovascular: No chest pain or discomfort and no palpitations. Pulmonary: No dyspnea, no cough, and no wheezing. Gastrointestinal: Normal appetite and no heartburn. No nausea, no vomiting, no abdominal pain, and no diarrhea. Genitourinary: Post-void dribbling. No dysuria. Musculoskeletal: Stiffness of the hand and back pain. Neurological: No dizziness. Psychological: No sleep disturbances. Mental Status Includes: Mental Status from this encounter Description Oriented to time, place, and person Functional Status Includes: Functional Status from this encounter No Functional Status Recorded Physical Exam Includes: Physical Exam from this encounter Allergies Includes: Active Allergies Substance Type Reaction Onset Date Resolved Date Statu s SEASONAL Allergy 11/04/2019 Active Last Documented On 4 10:43AM ; [facility] Encounters Encounter Provider Location Date Check-In Time Check-Out Time Diagnosis ANNUAL PHYSICAL EXAM LAURITA NERI MD [facility] 023 9:33AM 11:02AM Essential Hypertension Benign,Gout,Sin us Bradycardia,Spi nal Stenosis Lumbosacral Insurance Includes: Active Insurance Policies Plan Name Member ID Group # Subscriber Relationship Effect guy Dates 1 - MEDICARE PART A CLAIMS/NGS [id number] LEIA Goddard 07/18/2017 - Unknown 2 - [employer] [id number] LEIA Goddard Clinical Notes Includes: Clinical Notes from this encounter * Progress note Date Encounter Last Documented by 01/14/2023 ANNUAL PHYSICAL EXAM Last docume nted on 02/08/2023; 2:37 AM, LAURITA NERI MD; [facility] Active Problems & Conditions - Essential Hypertension Benign - Gout - Lumbago - Nicotine Dependence in Remission - 1-2 TJ YR HX QUIT 1979 - Osteoarthritis Ankle / Foot (Multiple Joints) - BILATERAL FEET - Osteoarthritis Knee - -right - Sinus Bradycardia - Spinal Stenosis Lumbosacral - 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 Chief Complaint The Chief Complaint is: Annnual Ckup- Would like to discuss high BP readings, has been keeping track at home. Also get a lab order for yearly labs. History of Present Illness LEIA PENG is a 72 year old male. - Allergy list reviewed - Medication list reviewed - Feeling fine - Post-void dribbling - Stiffness of the hand - Back pain - No fever - No ear symptoms - No nasal symptoms - , and No throat symptoms - No chest pain or discomfort - and No palpitations - No dyspnea - and No cough - No heartburn - No nausea - No vomiting - No abdominal pain - No diarrhea - , and No constipation - No skin symptoms The patient is a 72 years old male with a history of essential hypertension, presents today for a checkup. His blood pressure was 144/86mmHg in the clinic today. He checks his blood pressure regularly at home which ranges in 16-160\80-90mmHg. He has been taking losartan 100-25mg, metoprolol 50mg, and clonidine 0.2mg QD with efficacy. He tried taking amlodipine 5mg in the past. He states that he ate a banana and drank coffee at 6am today. The patient reports mild urinary emptying issues. He states that he usually have 1 urination episode during the night time, however it increases to 3-4 times with increased water intake before bed. He has a history of osteoarthritis. He has been taking meloxicam with efficacy. He has spinal stenosis lumbosacral. He had an L4-L5 back surgery done on 04/19/2007. He follows up with his orthopedic surgeon for back pain. As per the patient, his back pain is constantly ongoing. He reports arthritis pain in his hands. The patient has a history of gout. He denies any recent flare ups. He took allopurinol in the past. His blood work done on 12/11/2021 showed mildly elevated HbA1c at 6.1. He denies any other acute concerns today. He denies any chest pain, cough, or shortness of breath. He denies any bowel. He takes sound sleep at night. Overall, he has been doing well. Current Medication - cloNIDine HCl 0.2 MG Oral Tablet [...] MG Oral Capsule 0 days, 0 refills Past Medical/Surgical History Reported: No recent change in medical history. Surgery BACK SURGERY 05/08/07. Medical: Hypertension. Medications: Taking medication for high blood pressure. Tests: Blood pressure was high. Physical Trauma: Has had no fall in the last 12 months. Has a fear of falling. Surgical: - Back surgery 04/19/2007 Social History Social history unchanged. Caffeine use: No caffeine use. Tobacco use: Former smoker stopped smoking 40 years ago and non-smoker. Drug Use: Not using drugs. Habits: Good exercise habits. Allergies - SEASONAL Family History Heart disease Family history unchanged Systemic hypertension Review Of Systems Systemic: No fever, no chills, and no recent weight change. Head: No headache. Otolaryngeal: No earache, no nasal discharge, and no sore throat. Cardiovascular: No chest pain or discomfort and no palpitations. Pulmonary: No dyspnea, no cough, and no wheezing. Gastrointestinal: Normal appetite and no heartburn. No nausea, no vomiting, no abdominal pain, and no diarrhea. Genitourinary: Post-void dribbling. No dysuria. Musculoskeletal: Stiffness of the hand and back pain. Neurological: No dizziness. Psychological: No sleep disturbances. Physical Findings - Vitals taken 01/14/2023 09:51 am BP-Sitting L 144/86 mmHg 100 - 120/60 - 80 BP Cuff Size Large Pulse Rate-Sitting 61 bpm 50 - 100 Pulse Rhythm Regular Height 74 in 64 - 74 Weight 229 lbs 121 - 205 Body Mass Index 29.4 kg/m2 Body Surface Area 2.3 m2 Oxygen Saturation 95 % 93 - 100 General Appearance: - Well developed. - Well nourished. Eyes: General/bilateral: Extraocular Movements: - Normal. Pupils: - PERRLA. Ears: General/bilateral: Tympanic Membrane: - Normal. Nose: General/bilateral: Discharge: - No nasal discharge. Pharynx: Oropharynx: - Normal. Lungs: - Normal breath sounds/voice sounds. - No wheezing was heard. - No rhonchi were heard. - No rales/crackles were heard. Cardiovascular: Heart Rate And Rhythm: - Normal. Murmurs: - No murmurs were heard. Abdomen: Auscultation: - Bowel sounds were normal. Palpation: - Abdominal non-tender. Musculoskeletal System: Fingers: Fingers Of The Left Hand: - Nodules on index finger. - Nodules on middle finger. Hands: General/bilateral: - Nodules on palmar aspect of hands. Neurological: - Oriented to time, place, and person. Psychiatric: Psychiatric: Value Normal Range PHQ9 score: 0 Assessment - Sinus bradycardia [I49.8 - Other specified cardiac arrhythmias] - Benign essential hypertension [I10 - Essential (primary) hypertension] - Gout [M10.9 - Gout, unspecified] - Lumbosacral spinal stenosis [M48.07 - Spinal stenosis, lumbosacral region] Therapy - Reviewed & agreed to staff entries. - Clinical summary provided to patient. - Plan of care reviewed and agreed to. Discussed Essential hypertension: Adjusted the dose of metoprolol from 50mg to 25mg QD and provided a prescription for amlodipine 10mg QD. Continue taking losartan and clonidine. Advised him to regularly monitor his blood pressure at home. Advised him to take a healthy diet and stay active. Based on the signs and symptoms described by the patient his symptoms could be secondary to gout. Dr. Neri discussed about Tennis elbow and steroid injections as a treatment option with the patient in detail. Also discussed about physical therapy. Informed the patient about stem cell and plasma as an alternative treatment option secondary to back surgery. Ordered labs including CBC, CMP, lipid panel, uric acid, HbA1c, and PSA. The patient understands and agrees with the plan. Plan StartCited - Essential (primary) hypertension Lab: A1C HGB (GLYCO HEMOGLOBIN) amLODIPine Besylate 10 MG tablet One tablet daily, 30 days, 2 refills EndCited StartCited - Nicotine dependence, unspecified, in remission Lab: URIC ACID Lab: LIPID PANEL Lab: CMP Lab: CBC WITH DIFF Lab: PSA SCREEN EndCited Other Elmer Porras scribing the following documents on behalf of Sachni Kuo MD. Practice Management Standardized depression screening: negative for symptoms and for adult impression and score 0. Health Reminders - Assess Blood Pressure satisfied 01/14/2023. - Assess BMI satisfied 01/14/2023. - Assess Need for CT Lung Screen satisfied 11/04/2019. - Assess Tobacco Use satisfied 02/23/2021. - Depression Screening satisfied 01/14/2023. - Flu Shot satisfied 02/11/2022. - Follow up plan for Depression Screening satisfied 01/14/2023.
--- OUTSIDE RECORDS SUMMARY | 2024-07-27 14:57 | XMS_ITS | Referral Summary ---
Author Organization [facility] Address [address] [place] [address] Care Team Providers Care Burial Needs Salesperson Name Role Phone Curt Neri MD Primary Care Provider [phone] Curt Neri MD Unavailable [phone] Allergies No known active allergies Medications meloxicam (MOBIC) 7.5 mg tablet 1 Active multivitamin capsule Take 1 capsule by mouth daily Active cloNIDine (CATAPRES) 0.2 mg tablet Take 1 tablet (0.2 mg total) by mouth 2 (two) times a day 3 Active ketorolac (ACULAR) 0.5 % ophthalmic solution PLEASE SEE ATTACHED FOR DETAILED DIRECTIONS 4 Active olmesartan-amLO DIPin-hcthiazid 40-10-25 mg tablet Take 1 tablet by mouth daily 4 Active metoprolol XL (TOPROL-XL) 50 mg extended release tablet Take 1 tablet (50 mg total) by mouth daily 4 Active Active Problems Problem Noted Date Diagnosed Date Asymptomatic varicose veins of bilateral lower e xtremities 08/07/2023 Assessment & Plan (08/30/2023 11:28 AM CDT): Venous reflux showed subacute to chronic superficial venous thrombosis of the left great saphenous vein medial side branch and calf varicosities involving the lump at the mid thigh that measured 2.98 x 4 cm that had subacute to chronic venous disease. Patient states tenderness is better. We will continue wearing compression stockings. Would like to avoid surgery at this time. Plan: Continue utilizing compression stockings. Follow-up as needed. Assessment & Plan (08/07/2023 12:46 PM CDT): Left lower extremity venous duplex / reflux oriental rug stretcher ordered for further evaluation. Pending this he may benefit from a GSV ablation stab phlebectomies. Immunizations Immunization Administration Dates Next Due Hep B Vaccine 10/19/1996,05/18/1996,04/20/1996 Influenza, Quadrivalent, Hig h Dose, Preservative Free, Intrr 01/26/2020 Influenza, Quadrivalent, Spl it, Preservative Free, Intramuscular 02/19/2017 Influenza, Trivalent, High D ose, Split, Preservative Free, Intramuscular 02/17/2019,02/26/2018 Influenza, Trivalent, IM (MDV) 03/07/2016 Pneumococcal Conjugate PCV 13 02/26/2018 Pneumococcal Polysaccharide PPV23 02/17/2019 Tdap 04/28/2013 ZOSTER LIVE 10/30/2017 ZOSTER Recombinant 01/07/2018 Social History Tobacco Use Types Packs/Day Years Used Date Smoking Tobacco: Former Tobacco Cessation:Counseling Given: Not Answered Personal Safety Answer Date Recorded Getting School Help Needed Not on file 05/04 Sex and Gender Information Value Date Recorded Sex Assigned at Not on file Legal Sex 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 [employer] Gender Identity Not on file Sexual Orientation Not on file Last Filed Vital Signs Vital Sign Reading Time Taken Comments Blood Pressure 122/74 08/28/2023 8:56 AM CDT Pulse 72 08/28/2023 8:56 AM CDT Temperature 36.7 C (98 F) 03/04/2022 1:59 PM CDT Respiratory Rate 14 03/04/2022 1:59 PM CDT Oxygen Saturation 97% 08/28/2023 8:56 AM CDT Inhaled Oxygen Concentration - - Weight 102.1 kg (225 lb) 08/07/2023 10:38 AM CDT Height 188 cm (6' 2 ) 08/07/2023 10:38 AM CDT Body Mass Index 28.89 08/07/2023 10:38 AM CDT Plan of Treatment Not on file Insurance MEDICARE [facility] [place] [address] MEDICARE [facility] MEDICARE [employer] Care Teams Burial Needs Salesperson Relationship Specialty Start Date End Date Curt Neri MD PCP - General 08/17/16 Curt Neri MD 08/17/16
--- OUTSIDE RECORDS SUMMARY | 2024-07-27 14:57 | XMS_ITS ---
Author Organization [facility] Address [address] [place] [address] Phone Care Team Providers Care Tractor Operator Helper Name Role Phone LAURITA YOUNGBLOOD MD Primary Care Provider [phone] Reason for Referral Date Encounter Description Provider Reason for Referral 07/07/15 MED CHECK LAURITA YOUNGBLOOD MD Request C onsultation By Allied Medical Professional 08/24/14 1 YR CHECK-UP LAURITA YOUNGBLOOD MD Request Consultation By Allied Medical Professional Problems Includes: Active, inactive, and resolved Problems All Visits Onset Date Resolved Date Provider Condition S tatus Spinal Stenosis Lumbosacral 10/08/2014 LAURITA YOUNGBLOOD MD Active Last Documented On 10/08/2014 12:25AM ; [facility] Note: Unchanged Lumbago 08/25/2014 LAURITA YOUNGBLOOD MD Active Last Documented On 08/25/2014 11:39AM ; [facility] Note: Unchanged Osteoarthritis Knee 07/07/2013 ADOLFO HERMOSILLO MD Active Last Documented On 04/27/2021 3:36PM ; [facility] Note: Unchanged - -right 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 07/07/2013 LAURITA YOUNGBLOOD MD Active Last Documented On 11/23/2019 1:09AM ; [facility] Note: Unchanged Gout 03/03/2012 LAURITA YOUNGBLOOD MD Active Last Documented On 03/03/2012 3:18PM ; [facility] Note: Unchanged Osteoarthritis Ankle / Foot (Multiple Joints) 03/03/2012 LAURITA YOUNGBLOOD MD Active Last Documented On 03/03/2012 3:18PM ; [facility] Note: Unchanged - BILATERAL FEET Sinus Bradycardia 03/09/2010 LAURITA YOUNGBLOOD MD Active Last Documented On 03/09/2010 1:06PM ; [facility] Note: Unchanged Essential Hypertension Benign 03/09/2010 LAURITA YOUNGBLOOD MD Active Last Documented On 03/09/2010 1:06PM ; [facility] Note: Unchanged Reported Family History of Heart Disease 03/09/2010 LAURITA YOUNGBLOOD MD Inactive Last Documented On 08/25/2014 10:32AM ; [facility] Note: Unchanged Tobacco Abuse 03/09/2010 Unknown LAURITA Echeverria MD Resolved Last Documented On 07/02/2013 4:24PM ; [facility] Note: Unchanged Nicotine Dependence in Remission 03/09/2010 LAURITA YOUNGBLOOD MD Active Last Documented On 07/02/2013 4:24PM ; [facility] Note: Unchanged - 1-2 TJ YR HX QUIT 198 0 Plan of Treatment Findings Encounter Date Ordered disposition PATIENT HAS RECENTLY HAD A RT ING HERNIA REPAIR IN 06/2023. DID WELL. I DID SEE EKG FROM A LITTLE OVER A YEAR AGO AND IT WAS GOOD OTHER THAN SINUS BRADYCARDIA. I FEEL HE IS AT LOW RISK FOR ANY PERIOPERATIVE ISSUES PREOP EXAM with LAURITA YOUNGBLOOD MD 2023 Last Documented On 4 12:35PM ; [facility] Ordered follow-up visit in 6 months CHEC K UP with KELLY ALLEN PMHNP-BC STUDENT SUPPORT SERVICES DIRECTOR-BC 09/06/2021 Last Documented On 2 5:15PM ; [facility] Ordered return to the clinic if condition worsens or new symptoms arise CHECK UP with KELLY ALLEN PMHNP-BC STUDENT SUPPORT SERVICES DIRECTOR-BC 09/06/2021 Last Documented On 2 5:15PM ; [facility] Ordered follow-up visit in 6 months PROB SIVAKUMAR VISIT with KELLY ALLEN PMHNP-BC STUDENT SUPPORT SERVICES DIRECTOR-BC 03/09/2021 Last Documented On 1 1:57PM ; [facility] Ordered return to the clinic if condition worsens or new symptoms arise PROBLEM VISIT with KELLY ALLEN PMHNP-BC STUDENT SUPPORT SERVICES DIRECTOR-BC 03/09/2021 Last Documented On 1 1:57PM ; [facility] Ordered follow-up visit in 2 weeks PROBL EM VISIT with KELLY ALLEN PMHNP-BC STUDENT SUPPORT SERVICES DIRECTOR-BC 02/23/2021 Last Documented On 1 12:07PM ; [facility] Ordered return to the clinic if condition worsens or new symptoms arise PROBLEM VISIT with KELLY ALLEN PMHNP-BC STUDENT SUPPORT SERVICES DIRECTOR-BC 02/23/2021 Last Documented On 1 12:07PM ; [facility] Ordered follow-up visit in 1 year ANNUAL PHYSICAL EXAM with KELLY ALLEN HNP-BC STUDENT SUPPORT SERVICES DIRECTOR-BC 05/29/2018 Last Documented On 9 11:16AM ; [facility] Ordered return to the clinic if condition worsens or new symptoms arise ANNUAL PHYSICAL EXAM with KELLY ALLEN HNP-BC STUDENT SUPPORT SERVICES DIRECTOR-BC 05/29/2018 Last Documented On 9 11:16AM ; [facility] Labs prior to follow up appointment 1 YR CHECK-U P with LAURITA YOUNGBLOOD MD 06/12/2017 Last Documented On 8 1:07AM ; [facility] Continue current medication 1 YR CHECK-UP with Stephanie YOUNGBLOOD MD 06/12/2017 Last Documented On 8 1:07AM ; [facility] Ordered follow-up visit in one year 1 YR CHECK-U P with LAURITA YOUNGBLOOD MD 06/12/2017 Last Documented On 8 1:07AM ; [facility] Ordered patient will call r appointment as needed SICK VISIT with KELLY ALLEN HNP-BC STUDENT SUPPORT SERVICES DIRECTOR-BC 11/06/2016 Last Documented On 7 4:37PM ; [facility] Ordered return to the clinic if condition worsens or new symptoms arise SICK VISIT with KELLY ALLEN PMHNP-BC STUDENT SUPPORT SERVICES DIRECTOR-BC 11/06/2016 Last Documented On 7 4:37PM ; [facility] Left Inguinal herniorrhaphy under general anesthesia CONSULTATION with BAO RAMOS DO 10/31/2016 Last Documented On 7 1:25PM ; [facility] Ordered goals, options, limi tations and risks of therapy PROBLEM VISIT with KELLY ALLEN PMHNP-BC STUDENT SUPPORT SERVICES DIRECTOR-BC 09/12/2016 Last Documented On 7 8:23AM ; [facility] Ordered return to the clinic if condition worsens or new symptoms arise PROBLEM VISIT with KELLY ALLEN [facility]- 09/12/2016 Last Documented On 7 8:23AM ; [facility] Ordered patient will call fo r appointment as needed PROBLEM VISIT with KELLY ALLEN [facility]- 07/18/2016 Last Documented On 7 10:51AM ; [facility] Ordered patient will call fo r appointment as needed PROBLEM VISIT with KELLY ALLEN [facility]- 06/27/2016 Last Documented On 7 12:49PM ; [facility] Ordered patient will call fo r appointment as needed PROBLEM VISIT with KELLY ALLEN [facility]- 06/19/2016 Last Documented On 7 2:39PM ; [facility] MIRIPEX TID 1 YR CHECK-UP with LAURITA ONEILL MD 05/24/2016 Last Documented On 7 4:26AM ; [facility] WILL DO SLEEP STUDY AND EVAL IF RLS IS AN ISSUE WELL CLAY, THEN ALSO WILL REFER TO PT AT [facility] FOR TRACTION IF THEY WILL DO THIS. CAN DOWN THE LINE CONSIDER VASCULAR EVAL FOR VERICOSE VEINS MED CHECK with LAURITA YOUNGBLOOD MD 07/07/2015 Last Documented On 6 10:48PM ; [facility] Ordered Transition in care, clinical summary provided MED CHECK with LAURITA YOUNGBLOOD MD 07/07/2015 Last Documented On 6 10:48PM ; [facility] Requested request consultati on by allied medical professional MED CHECK with LAURITA YOUNGBLOOD MD 07/07/2015 Last Documented On 6 10:48PM ; [facility] 1. WILL REFER TO ABHISHEK AT [facility] 2. WILL SEND BACK TO PT 3. WILL HAVE AN MRI AT [facility] SO THAT THIS WILL BE READY FOR VISIT TO NEUROSURG 1 MONTH CHECK with LAURITA YOUNGBLOOD MD 10/07/2014 Last Documented On 5 12:26AM ; [facility] 1.WILL HAVE HIM TAKE SOME CO LACE AND SEE IF THIS HELPS CONSTIPATION. HE DIDNT PERCIEVE THIS AN ISSUE, BUT WILL TRY THESE AND SEE IF THIS HELPS SOME 2. WILL TRIAL SOME MUSCLE RELAXER AND LYRICA AND WILL REFER HIM TO PT BUT WILL ALSO PLAN FOR AN MRI ONCE PT EVALS HIM 3. BP AND GOUT CONTROLLED CPM 4. PLAN TO HAVE HIM DO SOME LABS SOON 5. TRY TO GET LAST RECORDS AND MRI FROM [facility] WHEN HE HAD SURGERY ON HIS BACK 6.WILL PLAN TO SEE HIM IN 2-4 MONTHS BUT WILL SEE HOW THINGS PLAY OUT FIRST 1 YR CHECK-UP with LAURITA YOUNGBLOOD MD 08/24/2014 Last Documented On 5 11:41AM ; [facility] Ordered Transition in care, clinical summary provided 1 YR CHECK-UP with LAURITA YOUNGBLOOD MD 08/24/2014 Last Documented On 5 11:41AM ; [facility] ANTIBIOTIC AND MUCINEX OR MU CINEX COUGH, TREAT FEVER, AND SHOULD BE IMPROVING IN COUPLE OF DAYS, RTC OR CALL IF NOT IMPROVING SICK VISIT with LAURITA YOUNGBLOOD MD 04/28/2014 Last Documented On 4 4:17AM ; [facility] Ordered return to the clinic if condition worsens or new symptoms arise SICK VISIT with LAURITA YOUNGBLOOD MD 04/28/2014 Last Documented On 4 4:17AM ; [facility] Ordered patient to call if jesse huff develops SICK VISIT with MERE CASTRO PA-C 10/09/2013 Last Documented On 4 2:57PM ; [facility] Ordered return to the clinic if condition worsens or new symptoms arise SICK VISIT with MERE CASTRO PA-C 10/09/2013 Last Documented On 4 2:57PM ; [facility] DISCUSSED LEG VEINS AND THE PAIN HE HAS, CAN USE COMPRESSION SOCKS BUT WE DISCUSSED REFERAL TO VASCULAR WELL.HE IS TO THINK ON THIS. WILL CPM CURRENT MEDS AND WILL COME IN SOMETIME FOR THE LABS AND WILL ALSO SEE US THAT DAY OR XRAY AND FOR CROSS CHECK HIS METER WITH OURS FOR BP. BACK IN 6 MONTHS 1 YR CHECK-UP with LAURITA YOUNGBLOOD MD 07/02/2013 Last Documented On 4 12:16AM ; [facility] LABS REVIEWED LOOK GOOD, MELANY L CONSIDER ARTHRITIC MEDS 6 MONTH CHECK with LAURITA YOUNGBLOOD MD 08/07/2012 Last Documented On 3 4:02PM ; [facility] DIZZY AND WONDERS IF IT IS S MARCELO EFFECT OF THE MEDS MIXING. ALSO FEET DOING WELL AND SO WILL STOP THE ALLOPURINOL AND SEE HOW HE DOES. MAY NEED TO CONSIDER REFERAL TO ORTHO FOR THIS. WILL SEE HIM BACK IN JULY AFTER SOME FASTING LABS MED CHECK with LAURITA YOUNGBLOOD MD 03/03/2012 Last Documented On 2 3:44PM ; [facility] 3 MONTHS AND SHOULD GET SOME LABS PRIOR TO VISIT TO LOOK MORE CLOSLY AT ALL ASPECTS OF HIS HEALTH 2 WK CK-UP with LAURITA YOUNGBLOOD MD 03/23/2010 Last Documented On 0 7:30PM ; [facility] Referrals To Diagnosis Neurosurgeon [facility] [place] Guajardo Wo Taran Note: 12/07/14 @ 1:30 Last Documented On 5 1:11PM ; [facility] General Surgery BAO RAMOS DO Unspecified ab dominal hernia without obstruction or gangrene Last Documented On 7 2:57PM ; [facility] It Web Development Consultant LISA HERNANDEZ MD Formerly [facility] for screening for malignant neoplasm of colon Note: 11/26/16 @ 2:00 Last Documented On 7 4:53PM ; [facility] Vascular Surgeon KEVEN LOPEZ MD Varicose veins of bilateral lower extremities with pain Last Documented On 1 4:39PM ; [facility] Vascular Surgeon KEVEN LOPEZ MD - WASH U Last Documented On 1 5:07PM ; [facility] Pain Management ADOLFO HERMOSILLO MD Spinal stenosi s, lumbosacral region Last Documented On 1 4:36PM ; [facility] Pain Management ADOLFO HERMOSILLO MD - [facility] - [address] [place] [phone] - Radiculopathy, lumbosacral region Note: Right L4-5, L5-S1 reyna sforaminal epidural steroid injection (#1) with fluoroscopy.Not diabetic, No PIV/Abx. No blood thinners. No hold ASA/NSAIDs. F/U in 2-3 weeks. Last Documented On 1 6:09PM ; [facility] Pain Management ADOLFO HERMOSILLO MD - [address] [phone] - Radiculopathy, lumbosacral region Note: Right L4-5, L5-S1 Reyna sforaminal epidural steroid injection (#2) under fluoroscopy.Not diabetic. No hold ASA/NSAIDs. No blood thnners. No PIV/Abx.f/u in 7-10 days.To be performed prior to MILD or ILESI. Last Documented On 2 10:27AM ; [facility] Pain Management Spinal stenosis, lumbar region with neurogenic claudication Note: Bilateral L2-3, L3-4 m inimally invasive lumbar decompresion (MILD) with possible epidurogram under fluoroscopy. (#3 of 3)IV Mod Sedation in prone position.Not diabetic. No blood thinners. Hold ASA/NSAIDs x 7 days. PIV/2G IV ancef OCTOR.Preop CXR, EKG, CMP, CBC, PT/PTT/INR.F/U in 7-10 days. Last Documented On 2 3:04PM ; [facility] Pain Management ADOLFO HERMOSILLO MD - [address] [phone] - Radiculopathy, lumbosacral region Note: L3-4 midline interlami carlos epidural steroid injection with epidurogram under fluoroscopy. (#2 of 3)No blood thinners. Not Diabetic. No PIV/Abx. Hold ASA x 3 days. No hold NSAIDs. Last Documented On 2 10:36AM ; [facility] Instructions to patient Instructions for patient Last Documented On 1 9:00AM ; [facility] Instructions for patient Last Documented On 1 11:31AM ; [facility] Intervention and counseling on cessation of tobacco use Last Documented On 7 10:50AM ; [facility] Instructions for patient Last Documented On 7 11:18AM ; [facility] Instructions for patient Last Documented On 7 2:03PM ; [facility] Recommend diet and exercise at least 30 min three times per week Last Documented On 6 10:29PM ; [facility] Recommend diet and exercise at least 30 min three times per week Last Documented On 5 10:31AM ; [facility] Education and Decision Aids were provided during visit for: Pill Count: Patient did not bring pain medication to appointment for pill count, per policy. Advised in order to continue to safely prescribe opioids, medication must be brought to each appointment Last Documented On 2 8:19AM ; [facility] Pill Count: Patient did not bring pain medication to appointment for pill count, per policy. Advised in order to continue to safely prescribe opioids, medication must be brought to each appointment Last Documented On 2 3:08PM ; [facility] Pill Count: Patient did not bring pain medication to appointment for pill count, per policy. Advised in order to continue to safely prescribe opioids, medication must be brought to each appointment Last Documented On 2 4:42PM ; [facility] Pill Count: Patient did not bring pain medication to appointment for pill count, per policy. Advised in order to continue to safely prescribe opioids, medication must be brought to each appointment Last Documented On 2 2:54PM ; [facility] Pill Count: Patient did not bring pain medication to appointment for pill count, per policy. Advised in order to continue to safely prescribe opioids, medication must be brought to each appointment Last Documented On 1 2:56PM ; [facility] Patient education about home safety plans for prevention of falls : Patient completed a Fall risk assesment and was provided fall risk education materials Last Documented On 1 8:31AM ; [facility] Patient education about anti biotics: need to finish even if feeling better Last Documented On 4 2:56PM ; [facility] Assessments Includes: Assessments for all patient encounters Findings Encounter Date Benign essential hypertension PREOP EXAM with BIANCA YOUNGBLOOD MD 2023 Last Documented On 4 12:35PM ; [facility] Cataract of both eyes PREOP EXAM with LAURITA YOUNGBLOOD MD 2023 Last Documented On 4 12:35PM ; [facility] Gout PREOP EXAM with LAURITA YOUNGBLOOD MD 2023 Last Documented On 4 12:35PM ; [facility] Lumbosacral spinal stenosis PREOP EXAM with GERALD THY [place] YOUNGBLOOD MD 2023 Last Documented On 4 12:35PM ; [facility] Sinus bradycardia PREOP EXAM with LAURITA Echeverria MD 2023 Last Documented On 4 12:35PM ; [facility] Benign essential hypertension ANNUAL PHYSICAL EX AM with LAURITA YOUNGBLOOD MD 01/14/2023 Last Documented On 3 2:37AM ; [facility] Gout ANNUAL PHYSICAL EXAM with J LUISOTH Y [place] YOUNGBLOOD MD 01/14/2023 Last Documented On 3 2:37AM ; [facility] Lumbosacral spinal stenosis ANNUAL PHYSICAL EXAM with LAURITA YOUNGBLOOD MD 01/14/2023 Last Documented On 3 2:37AM ; [facility] Sinus bradycardia ANNUAL PHYSICAL EXAM with GERALD THY [place] YOUNGBLOOD MD 01/14/2023 Last Documented On 3 2:37AM ; [facility] Benign essential hypertension CHECK UP with GERALD YOUNGBLOOD MD 06/22/2022 Last Documented On 3 4:21AM ; [facility] Gout CHECK UP with LAURITA YOUNGBLOOD MD 06/22/2022 Last Documented On 3 4:21AM ; [facility] Lumbosacral spinal stenosis CHECK UP with BALDOMERO Y [place] YOUNGBLOOD MD 06/22/2022 Last Documented On 3 4:21AM ; [facility] 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) CHECK UP with LAURITA YOUNGBLOOD MD 06/22/2022 Last Documented On 3 4:21AM ; [facility] Sinus bradycardia CHECK UP with LAURITA YOUNGBLOOD MD 06/22/2022 Last Documented On 3 4:21AM ; [facility] Acute COVID-19 infection * PHONE CALL wi irene ALLEN PMHNP-BC STUDENT SUPPORT SERVICES DIRECTOR-BC 02/20/2022 Last Documented On 2 10:02AM ; [facility] [Z01.89 - Encounter for othe r specified special examinations] visit for: post op exam PAIN MANAGEMENT FOLLOW UP with AUSTIN Guadalupe ANABELLA LOFTSMAN-FPA, STUDENT SUPPORT SERVICES DIRECTOR-BC 10/25/2021 Last Documented On 2 8:50AM ; [facility] Benign essential hypertension PAIN MANAG EMENT FOLLOW UP with AUSTIN Guadalupe ANABELLA LOFTSMAN-FPA, STUDENT SUPPORT SERVICES DIRECTOR-BC 10/25/2021 Last Documented On 2 8:50AM ; [facility] DORSALGIA PAIN MANAGEMENT FOLLOW UP with Jessica Guadalupe ANABELLA LOFTSMAN-FPA, STUDENT SUPPORT SERVICES DIRECTOR-BC 10/25/2021 Last Documented On 2 8:50AM ; [facility] Gout PAIN MANAGEMENT FOLLOW UP with Jessica Guadalupe ANABELLA LOFTSMAN-FPA, STUDENT SUPPORT SERVICES DIRECTOR-BC 10/25/2021 Last Documented On 2 8:50AM ; [facility] Lumbar canal stenosis with n eurogenic claudication PAIN MANAGEMENT FOLLOW UP with AUSTIN Guadalupe ANABELLA LOFTSMAN-FPA, STUDENT SUPPORT SERVICES DIRECTOR-BC 10/25/2021 Last Documented On 2 8:50AM ; [facility] Lumbar postlaminectomy syndrome PAIN MAN AGEMENT FOLLOW UP with AUSTIN Guadalupe ANABELLA LOFTSMAN-FPA, STUDENT SUPPORT SERVICES DIRECTOR-BC 10/25/2021 Last Documented On 2 8:50AM ; [facility] Lumbosacral radiculopathy PAIN MANAGEMEN T FOLLOW UP with AUSTIN Guadalupe ANABELLA LOFTSMAN-FPA, STUDENT SUPPORT SERVICES DIRECTOR-BC 10/25/2021 Last Documented On 2 8:50AM ; [facility] Lumbosacral spondylosis PAIN MANAGEMENT FOLLOW UP with AUSTIN Guadalupe ANABELLA LOFTSMAN-FPA, STUDENT SUPPORT SERVICES DIRECTOR-BC 10/25/2021 Last Documented On 2 8:50AM ; [facility] Osteoarthritis of knee PAIN MANAGEMENT F OLLOW UP with AUSTIN Guadalupe ANABELLA LOFTSMAN-FPA, STUDENT SUPPORT SERVICES DIRECTOR-BC 10/25/2021 Last Documented On 2 8:50AM ; [facility] 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) PAIN MANAGEMENT FOLLOW UP with AUSTIN KYLE LOFTSMAN-FPA, STUDENT SUPPORT SERVICES DIRECTOR-BC 10/25/2021 Last Documented On 2 8:50AM ; [facility] Benign essential hypertension PAIN MANAG EMENT FOLLOW UP with ADOLFO HERMOSILLO MD 10/11/2021 Last Documented On 2 4:19PM ; [facility] DORSALGIA PAIN MANAGEMENT FOLLOW UP with Thomas HERMOSILLO MD 10/11/2021 Last Documented On 2 4:19PM ; [facility] Gout PAIN MANAGEMENT FOLLOW UP with Thomas HERMOSILLO MD 10/11/2021 Last Documented On 2 4:19PM ; [facility] Lumbar canal stenosis with n eurogenic claudication PAIN MANAGEMENT FOLLOW UP with ADOLFO HERMOSILLO MD 10/11/2021 Last Documented On 2 4:19PM ; [facility] Lumbar postlaminectomy syndrome PAIN MAN AGEMENT FOLLOW UP with ADOLFO HERMOSILLO MD 10/11/2021 Last Documented On 2 4:19PM ; [facility] Lumbosacral radiculopathy PAIN MANAGEMENT FOLLOW UP with ADOLFO HERMOSILLO MD 10/11/2021 Last Documented On 2 4:19PM ; [facility] Lumbosacral spondylosis PAIN MANAGEMENT FOLLOW U P with ADOLFO HERMOSILLO MD 10/11/2021 Last Documented On 2 4:19PM ; [facility] Osteoarthritis of knee PAIN MANAGEMENT FOLLOW UP with ADOLFO HERMOSILLO MD 10/11/2021 Last Documented On 2 4:19PM ; [facility] 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) PAIN MANAGEMENT FOLLOW UP with ADOLFO HERMOSILLO MD 10/11/2021 Last Documented On 2 4:19PM ; [facility] Benign essential hypertension CHECK UP w edmundo ALLEN PMHNP-BC STUDENT SUPPORT SERVICES DIRECTOR-BC 09/06/2021 Last Documented On 2 5:15PM ; [facility] Gout CHECK UP with KELLY Morelos PMHNP-BC STUDENT SUPPORT SERVICES DIRECTOR-BC 09/06/2021 Last Documented On 2 5:15PM ; [facility] Lumbosacral spinal stenosis CHECK UP wit h KELLY ALLEN PMHNP-BC STUDENT SUPPORT SERVICES DIRECTOR-BC 09/06/2021 Last Documented On 2 5:15PM ; [facility] Benign essential hypertension PAIN MANAG EMENT FOLLOW UP with ADOLFO HERMOSILLO MD 09/06/2021 Last Documented On 2 5:14PM ; [facility] DORSALGIA PAIN MANAGEMENT FOLLOW UP with Thomas HERMOSILLO MD 09/06/2021 Last Documented On 2 5:14PM ; [facility] Gout PAIN MANAGEMENT FOLLOW UP with Thomas HERMOSILLO MD 09/06/2021 Last Documented On 2 5:14PM ; [facility] Lumbar canal stenosis with n eurogenic claudication PAIN MANAGEMENT FOLLOW UP with ADOLFO HERMOSILLO MD 09/06/2021 Last Documented On 2 5:14PM ; [facility] Lumbar postlaminectomy syndrome PAIN MAN AGEMENT FOLLOW UP with ADOLFO HERMOSILLO MD 09/06/2021 Last Documented On 2 5:14PM ; [facility] Lumbosacral radiculopathy PAIN MANAGEMENT FOLLOW UP with ADOLFO HERMOSILLO MD 09/06/2021 Last Documented On 2 5:14PM ; [facility] Lumbosacral spondylosis PAIN MANAGEMENT FOLLOW U P with ADOLFO HERMOSILLO MD 09/06/2021 Last Documented On 2 5:14PM ; [facility] Osteoarthritis of knee PAIN MANAGEMENT FOLLOW UP with ADOLFO HERMOSILLO MD 09/06/2021 Last Documented On 2 5:14PM ; [facility] 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) PAIN MANAGEMENT FOLLOW UP with ADOLFO HERMOSILLO MD 09/06/2021 Last Documented On 2 5:14PM ; [facility] Benign essential hypertension PAIN MANAG EMENT FOLLOW UP with ADOLFO HERMOSILLO MD 07/19/2021 Last Documented On 2 6:56PM ; [facility] DORSALGIA PAIN MANAGEMENT FOLLOW UP with Thomas HERMOSILLO MD 07/19/2021 Last Documented On 2 6:56PM ; [facility] Gout PAIN MANAGEMENT FOLLOW UP with Thomas HERMOSILLO MD 07/19/2021 Last Documented On 2 6:56PM ; [facility] Lumbar canal stenosis with n eurogenic claudication PAIN MANAGEMENT FOLLOW UP with ADOLFO HERMOSILLO MD 07/19/2021 Last Documented On 2 6:56PM ; [facility] Lumbar postlaminectomy syndrome PAIN MAN AGEMENT FOLLOW UP with ADOLFO HERMOSILLO MD 07/19/2021 Last Documented On 2 6:56PM ; [facility] Lumbosacral radiculopathy PAIN MANAGEMENT FOLLOW UP with ADOLFO HERMOSILLO MD 07/19/2021 Last Documented On 2 6:56PM ; [facility] Lumbosacral spondylosis PAIN MANAGEMENT FOLLOW U P with ADOLFO HERMOSILLO MD 07/19/2021 Last Documented On 2 6:56PM ; [facility] Osteoarthritis of knee PAIN MANAGEMENT FOLLOW UP with ADOLFO HERMOSILLO MD 07/19/2021 Last Documented On 2 6:56PM ; [facility] 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) PAIN MANAGEMENT FOLLOW UP with ADOLFO HERMOSILLO MD 07/19/2021 Last Documented On 2 6:56PM ; [facility] Benign essential hypertension PAIN MANAG EMENT NEW CONSULT ESTABLISHED with ADOLFO HERMOSILLO MD 04/27/2021 Last Documented On 1 4:01PM ; [facility] DORSALGIA PAIN MANAGEMENT NEW CONSULT ESTA BLISHED with ADOLFO HERMOSILLO MD 04/27/2021 Last Documented On 1 4:01PM ; [facility] Gout PAIN MANAGEMENT NEW CONSULT ESTA BLISHED with ADOLFO HERMOSILLO MD 04/27/2021 Last Documented On 1 4:01PM ; [facility] Lumbar canal stenosis with n eurogenic claudication PAIN MANAGEMENT NEW CONSULT ESTABLISHED with ADOLFO HERMOSILLO MD 04/27/2021 Last Documented On 1 4:01PM ; [facility] Lumbar postlaminectomy syndrome PAIN MAN AGEMENT NEW CONSULT ESTABLISHED with ADOLFO HERMOSILLO MD 04/27/2021 Last Documented On 1 4:01PM ; [facility] Lumbosacral radiculopathy PAIN MANAGEMEN T NEW CONSULT ESTABLISHED with ADOLFO HERMOSILLO MD 04/27/2021 Last Documented On 1 4:01PM ; [facility] Lumbosacral spondylosis PAIN MANAGEMENT NEW CONSULT ESTABLISHED with ADOLFO HERMOSILLO MD 04/27/2021 Last Documented On 1 4:01PM ; [facility] Osteoarthritis of knee PAIN MANAGEMENT N EW CONSULT ESTABLISHED with ADOLFO HERMOSILLO MD 04/27/2021 Last Documented On 1 4:01PM ; [facility] 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) PAIN MANAGEMENT NEW CONSULT ESTABLISHED with ADOLFO HERMOSILLO MD 04/27/2021 Last Documented On 1 4:01PM ; [facility] Benign essential hypertension PROBLEM SIT with KELLY A TIFFANY PMHNP-BC STUDENT SUPPORT SERVICES DIRECTOR-BC 03/09/2021 Last Documented On 1 1:57PM ; [facility] Lumbosacral spinal stenosis PROBLEM VISI T with KELLY A TIFFANY PMHNP-BC STUDENT SUPPORT SERVICES DIRECTOR-BC 03/09/2021 Last Documented On 1 1:57PM ; [facility] Arthralgia of right shoulder region PROB SIVAKUMAR VISIT with KELLY A TIFFANY PMHNP-BC STUDENT SUPPORT SERVICES DIRECTOR-BC 02/23/2021 Last Documented On 1 12:07PM ; [facility] Benign essential hypertension PROBLEM SIT with KELLY A TIFFANY PMHNP-BC STUDENT SUPPORT SERVICES DIRECTOR-BC 02/23/2021 Last Documented On 1 12:07PM ; [facility] Lumbago PROBLEM VISIT with KELLY A CESAR ROSALBAVE PMHNP-BC STUDENT SUPPORT SERVICES DIRECTOR-BC 02/23/2021 Last Documented On 1 12:07PM ; [facility] Lumbosacral spinal stenosis PROBLEM VISI T with KELLY A TIFFANY PMHNP-BC STUDENT SUPPORT SERVICES DIRECTOR-BC 02/23/2021 Last Documented On 1 12:07PM ; [facility] Benign essential hypertension CHECK UP with GERALD YOUNGBLOOD MD 12/05/2020 Last Documented On 1 4:07AM ; [facility] Gout CHECK UP with LAURITA YOUNGBLOOD MD 12/05/2020 Last Documented On 1 4:07AM ; [facility] Lumbago CHECK UP with LAURITA YOUNGBLOOD MD 12/05/2020 Last Documented On 1 4:07AM ; [facility] Lumbosacral spinal stenosis CHECK UP with BALDOMERO Y [place] YOUNGBLOOD MD 12/05/2020 Last Documented On 1 4:07AM ; [facility] Varicose veins of lower extr emities with pain CHECK UP with LAURITA YOUNGBLOOD MD 12/05/2020 Last Documented On 1 4:07AM ; [facility] Actinic keratosis multiple o n the face, primary on rt cheek and another in left sideburn area anterior CHECK UP with LAURITA YOUNGBLOOD MD 11/04/2019 Last Documented On 0 1:14AM ; [facility] Benign essential hypertension CHECK UP with GERALD YOUNGBLOOD MD 11/04/2019 Last Documented On 0 1:14AM ; [facility] Gout CHECK UP with LAURITA YOUNGBLOOD MD 11/04/2019 Last Documented On 0 1:14AM ; [facility] Lumbago CHECK UP with LAURITA YOUNGBLOOD MD 11/04/2019 Last Documented On 0 1:14AM ; [facility] Lumbosacral spinal stenosis CHECK UP with BALDOMERO YOUNGBLOOD MD 11/04/2019 Last Documented On 0 1:14AM ; [facility] Nicotine dependence in remission CHECK UP with Stephanie YOUNGBLOOD MD 11/04/2019 Last Documented On 0 1:14AM ; [facility] Sinus bradycardia CHECK UP with LAURITA YOUNGBLOOD MD 11/04/2019 Last Documented On 0 1:14AM ; [facility] Varicose veins of lower extr emities with pain CHECK UP with LAURITA YOUNGBLOOD MD 11/04/2019 Last Documented On 0 1:14AM ; [facility] Benign essential hypertension ANNUAL PHY SICAL EXAM with KELLY [facility] 05/29/2018 Last Documented On 9 11:16AM ; [facility] Gout ANNUAL PHYSICAL EXAM with MARTY [facility] 05/29/2018 Last Documented On 9 11:16AM ; [facility] Benign essential hypertension 1 YR CHECK-UP with LAURITA YOUNGBLOOD MD 06/12/2017 Last Documented On 8 1:07AM ; [facility] Gout 1 YR CHECK-UP with LAURITA ONEILL MD 06/12/2017 Last Documented On 8 1:07AM ; [facility] Lumbago 1 YR CHECK-UP with LAURITA ONEILL MD 06/12/2017 Last Documented On 8 1:07AM ; [facility] Muscle spasm 1 YR CHECK-UP with LAURITA ONEILL MD 06/12/2017 Last Documented On 8 1:07AM ; [facility] Organic adult obstructive sleep apnea 1 YR CHECK-UP with LAURITA YOUNGBLOOD MD 06/12/2017 Last Documented On 8 1:07AM ; [facility] Acute upper respiratory infection SICK V ISIT with KELLY A TIFFANY PMHNP-BC STUDENT SUPPORT SERVICES DIRECTOR-BC 11/06/2016 Last Documented On 7 4:37PM ; [facility] Bronchitis SICK VISIT with KELLY A [address] PMHNP-BC STUDENT SUPPORT SERVICES DIRECTOR-BC 11/06/2016 Last Documented On 7 4:37PM ; [facility] Left Inguinal hernia CONSULTATION with BAO FRANKEL DO 10/31/2016 Last Documented On 7 1:25PM ; [facility] Hydrocele of male genital organs PROBLEM VISIT with KELLY A TIFFANY PMHNP-BC STUDENT SUPPORT SERVICES DIRECTOR-BC 09/12/2016 Last Documented On 7 8:23AM ; [facility] Cervicalgia PROBLEM VISIT with KELLY A CESAR RGRAVE PMHNP-BC STUDENT SUPPORT SERVICES DIRECTOR-BC 07/18/2016 Last Documented On 7 10:51AM ; [facility] Colon screening PROBLEM VISIT with KELLY A CESAR RGRAVE PMHNP-BC STUDENT SUPPORT SERVICES DIRECTOR-BC 07/18/2016 Last Documented On 7 10:51AM ; [facility] Cervicalgia PROBLEM VISIT with KELLY A CESAR RGRAVE PMHNP-BC STUDENT SUPPORT SERVICES DIRECTOR-BC 06/27/2016 Last Documented On 7 12:49PM ; [facility] Right trapezius muscle strain PROBLEM SIT with KELLY A TIFFANY PMHNP-BC STUDENT SUPPORT SERVICES DIRECTOR-BC 06/27/2016 Last Documented On 7 12:49PM ; [facility] Cervicalgia PROBLEM VISIT with KELLY Roxy [facility] 06/19/2016 Last Documented On 7 2:39PM ; [facility] Right trapezius muscle strain PROBLEM SIT with KELLY Roxy [facility] 06/19/2016 Last Documented On 7 2:39PM ; [facility] Benign essential hypertension 1 YR CHECK-UP with LAURITA YOUNGBLOOD MD 05/24/2016 Last Documented On 7 4:26AM ; [facility] Gout 1 YR CHECK-UP with LAURITA ONEILL MD 05/24/2016 Last Documented On 7 4:26AM ; [facility] Lumbago 1 YR CHECK-UP with LAURITA ONEILL MD 05/24/2016 Last Documented On 7 4:26AM ; [facility] Lumbar canal stenosis 1 YR CHECK-UP with LAURITA YOUNGBLOOD MD 05/24/2016 Last Documented On 7 4:26AM ; [facility] Lumbosacral spinal stenosis 1 YR CHECK-UP with Stephanie YOUNGBLOOD MD 05/24/2016 Last Documented On 7 4:26AM ; [facility] Muscle spasm 1 YR CHECK-UP with LAURITA ONEILL MD 05/24/2016 Last Documented On 7 4:26AM ; [facility] Organic adult obstructive sleep apnea 1 YR CHECK-UP with LAURITA YOUNGBLOOD MD 05/24/2016 Last Documented On 7 4:26AM ; [facility] Organic adult obstructive sleep apnea REFERRAL w ith LAURITA YOUNGBLOOD MD 07/21/2015 Last Documented On 6 4:12AM ; [facility] Benign essential hypertension MED CHECK with J LUIS YOUNGBLOOD MD 07/07/2015 Last Documented On 6 10:48PM ; [facility] Gout MED CHECK with LAURITA Cash 07/07/2015 Last Documented On 6 10:48PM ; [facility] Lumbago MED CHECK with LAURITA Cash 07/07/2015 Last Documented On 6 10:48PM ; [facility] Lumbar canal stenosis MED CHECK with LAURITA MARTIN MD 07/07/2015 Last Documented On 6 10:48PM ; [facility] Muscle spasm MED CHECK with LAURITA Cash 07/07/2015 Last Documented On 6 10:48PM ; [facility] Organic adult obstructive sleep apnea MED CHECK with LAURITA YOUNGBLOOD MD 07/07/2015 Last Documented On 6 10:48PM ; [facility] Benign essential hypertension PROBLEM VISIT with LAURITA YOUNGBLOOD MD 04/05/2015 Last Documented On 5 7:22AM ; [facility] Lumbago PROBLEM VISIT with LAURITA ONEILL MD 04/05/2015 Last Documented On 5 7:22AM ; [facility] Lumbosacral spinal stenosis PROBLEM VISIT with Stephanie YOUNGBLOOD MD 04/05/2015 Last Documented On 5 7:22AM ; [facility] Muscle spasm PROBLEM VISIT with LAURITA ONEILL MD 04/05/2015 Last Documented On 5 7:22AM ; [facility] Sinus bradycardia PROBLEM VISIT with LAURITA MARTIN MD 04/05/2015 Last Documented On 5 7:22AM ; [facility] Lumbago 1 MONTH CHECK with LAURITA ONEILL MD 10/07/2014 Last Documented On 5 12:26AM ; [facility] Lumbosacral spinal stenosis 1 MONTH CHECK with Stephanie YOUNGBLOOD MD 10/07/2014 Last Documented On 5 12:26AM ; [facility] Muscle spasm 1 MONTH CHECK with LAURITA ONEILL MD 10/07/2014 Last Documented On 5 12:26AM ; [facility] Benign essential hypertension 1 YR CHECK-UP with LAURITA YOUNGBLOOD MD 08/24/2014 Last Documented On 5 11:41AM ; [facility] Constipation 1 YR CHECK-UP with LAURITA ONEILL MD 08/24/2014 Last Documented On 5 11:41AM ; [facility] Gout 1 YR CHECK-UP with LAURITA ONEILL MD 08/24/2014 Last Documented On 5 11:41AM ; [facility] Lumbago 1 YR CHECK-UP with LAURITA ONEILL MD 08/24/2014 Last Documented On 5 11:41AM ; [facility] Muscle spasm 1 YR CHECK-UP with LAURITA ONEILL MD 08/24/2014 Last Documented On 5 11:41AM ; [facility] Nicotine dependence - in remission 1 YR CHECK-UP with LAURITA YOUNGBLOOD MD 08/24/2014 Last Documented On 5 11:41AM ; [facility] Screen malignant neoplasm prostate 1 YR CHECK-UP with LAURITA YOUNGBLOOD MD 08/24/2014 Last Documented On 5 11:41AM ; [facility] Sprain of the back 1 YR CHECK-UP with LAURITA YOUNGBLOOD MD 08/24/2014 Last Documented On 5 11:41AM ; [facility] Acute bronchitis SICK VISIT with LAURITA YOUNGBLOOD MD 04/28/2014 Last Documented On 4 4:17AM ; [facility] Atypical pneumonia SICK VISIT with LAURITA ONEILL MD 04/28/2014 Last Documented On 4 4:17AM ; [facility] Primary atypical Mycoplasma pneumoniae SICK VISI T with LAURITA YOUNGBLOOD MD 04/28/2014 Last Documented On 4 4:17AM ; [facility] Cough SICK VISIT with MERE FISHER-C 10/09/2013 Last Documented On 4 2:57PM ; [facility] Nonvenomous insect bite on trunk SICK VISIT with MERE FISHER-C 10/09/2013 Last Documented On 4 2:57PM ; [facility] Pyrexia SICK VISIT with MERE REYES PA-C 10/09/2013 Last Documented On 4 2:57PM ; [facility] Benign essential hypertension 1 YR CHECK-UP with LAURITA YOUNGBLOOD MD 07/02/2013 Last Documented On 4 12:16AM ; [facility] Benign essential hypertension 1 YR CHECK-UP with LAURITA YOUNGBLOOD MD 07/02/2013 Last Documented On 4 12:16AM ; [facility] Gout 1 YR CHECK-UP with LAURITA ONEILL MD 07/02/2013 Last Documented On 4 12:16AM ; [facility] Osteoarthritis of knee -right 1 YR CHECK-UP with LAURITA YOUNGBLOOD MD 07/02/2013 Last Documented On 4 12:16AM ; [facility] 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) BILATERAL FEET 1 YR CHECK-UP with LAURITA YOUNGBLOOD MD 07/02/2013 Last Documented On 4 12:16AM ; [facility] Sinus bradycardia 1 YR CHECK-UP with LAURITA MARTIN MD 07/02/2013 Last Documented On 4 12:16AM ; [facility] Tobacco Abuse SMOKELESS 1 CAN/3.5 DAYS 1 YR CHECK-UP with LAURITA YOUNGBLOOD MD 07/02/2013 Last Documented On 4 12:16AM ; [facility] Varicose veins with pain 1 YR CHECK-UP with GERALD YOUNGBLOOD MD 07/02/2013 Last Documented On 4 12:16AM ; [facility] Benign essential hypertension 6 MONTH CHECK with LAURITA YOUNGBLOOD MD 08/07/2012 Last Documented On 3 4:02PM ; [facility] Gout 6 MONTH CHECK with LAURITA ONEILL MD 08/07/2012 Last Documented On 3 4:02PM ; [facility] 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) 6 MONTH CHECK with LAURITA YOUNGBLOOD MD 08/07/2012 Last Documented On 3 4:02PM ; [facility] 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) BILATERAL FEET 6 MONTH CHECK with LAURITA YOUNGBLOOD MD 08/07/2012 Last Documented On 3 4:02PM ; [facility] Sinus bradycardia 6 MONTH CHECK with LAURITA MARTIN MD 08/07/2012 Last Documented On 3 4:02PM ; [facility] Tobacco Abuse 6 MONTH CHECK with LAURITACHADD ONEILL MD 08/07/2012 Last Documented On 3 4:02PM ; [facility] Tobacco Abuse SMOKELESS 1 CAN/3.5 DAYS 6 MONTH CHECK with LAURITA YOUNGBLOOD MD 08/07/2012 Last Documented On 3 4:02PM ; [facility] Benign essential hypertension MED CHECK with J LUIS YOUNGBLOOD MD 03/03/2012 Last Documented On 2 3:44PM ; [facility] Gout MED CHECK with LAURITA Cash 03/03/2012 Last Documented On 2 3:44PM ; [facility] 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) BILATERAL FEET MED CHECK with LAURITA YOUNGBLOOD MD 03/03/2012 Last Documented On 2 3:44PM ; [facility] Sinus bradycardia MED CHECK with LAURITA YOUNGBLOOD MD 03/03/2012 Last Documented On 2 3:44PM ; [facility] Tobacco Abuse SMOKELESS 1 CAN/3.5 DAYS MED CHECK with LAURITA YOUNGBLOOD MD 03/03/2012 Last Documented On 2 3:44PM ; [facility] Benign essential hypertensio n CPM BENICAR HTC 20/.5 AND SEE HOW HE DOES AND MAY NEED TO RAISE THIS CHECK UP with LAURITA YOUNGBLOOD MD 11/26/2011 Last Documented On 2 11:49PM ; [facility] Gout TX WITH ALLOPURINOL AND SEE HOW HIS FEET DO CHECK UP with LAURITA YOUNGBLOOD MD 11/26/2011 Last Documented On 2 11:49PM ; [facility] Localized primary osteoarthr itis of the left foot 1st MTP joint CHECK UP with LAURITA YOUNGBLOOD MD 11/26/2011 Last Documented On 2 11:49PM ; [facility] Localized primary osteoarthr itis of the right foot 1st MTP joint CHECK UP with LAURITA YOUNGBLOOD MD 11/26/2011 Last Documented On 2 11:49PM ; [facility] Nicotine dependence - in rem ission in early 1970s he smoked very briefly, maybe right at 100 cig lifetime but not a lot more CHECK UP with LAURITA YOUNGBLOOD MD 11/26/2011 Last Documented On 2 11:49PM ; [facility] Overweight CHECK UP with LAURITA YOUNGBLOOD MD 11/26/2011 Last Documented On 2 11:49PM ; [facility] Tobacco Abuse chewing tobacco activly CHECK UP w edmundo LAURITA YOUNGBLOOD MD 11/26/2011 Last Documented On 2 11:49PM ; [facility] Hypertension MED CHECK with AUSTIN Schmid PA-C 12/21/2010 Last Documented On 1 9:30AM ; [facility] Benign essential hypertensio n DUE TO COST, IS NOW ON BENICAR 20-12.5 AND IS DOING GREAT. IF YOU LOOK AT HIS MACHINE READING IT SEEMS IT ALWAYS READS HIGH, MAY BE TOO SMALL OF A CUFF OR BECAUSE OF THE AGE ON THE MACHINE SO HE WILL INVESTIGATE EITHER A BETTER CUFF OR CALIBRATION OR NEW METER. 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 SOMETIMES FEELS LIMITED BY HIS WEAKNESS AND SO WE DISCUSSED [facility] AND TRYING TO REVISIT THE PT HE DID POST OP TO IMPROVE HIS ENDURANCE SO HE MAY TRY THIS... WE DID NOT DO SPECIFIC EXAM FOR THIS IT WAS AN INPASSING COMMENT AND HE WAS UP READY TO LEAVE 2 WK CK-UP with LAURITA YOUNGBLOOD MD 03/23/2010 Last Documented On 0 7:30PM ; [facility] Sinus bradycardia SINCE MED CHANGE HIS PULSE IS MUCH BETTER, MAY HAVE BEEN AN ILLNESS OR MAY BE RELATED TO OLD MEDS, BUT EITHER WAY WILL WATCH THIS AND IF IT RESUMES WE NEED TO START MONITOR FOR THIS TO LOOK MORE CLOSLY 2 WK CK-UP with LAURITA YOUNGBLOOD MD 03/23/2010 Last Documented On 0 7:30PM ; [facility] Tobacco Abuse chewing tobacco activly 2 WK CK-UP with LAURITA YOUNGBLOOD MD 03/23/2010 Last Documented On 0 7:30PM ; [facility] Benign essential hypertensio n will change him to diovan hct and see if this alone will control him. will check bp at home and will come back in 2 weeks with a call in one week to give us some numbers NEW PATIENT VISIT with LAURITA YOUNGBLOOD MD 03/09/2010 Last Documented On 0 1:07PM ; [facility] Nicotine dependence - in rem ission in early 1970s he smoked very briefly, maybe right at 100 cig lifetime but not a lot more NEW PATIENT VISIT with LAURITA YOUNGBLOOD MD 03/09/2010 Last Documented On 0 1:07PM ; [facility] Sinus bradycardia 60 or belo w, is 54 on ekg, so will monitor this with his bp and we may consider heart monitor in two weeks NEW PATIENT VISIT with LAURITA YOUNGBLOOD MD 03/09/2010 Last Documented On 0 1:07PM ; [facility] Tobacco Abuse chewing tobacco activly NE W PATIENT VISIT with LAURITA YOUNGBLOOD MD 03/09/2010 Last Documented On 0 1:07PM ; [facility] Instructions Includes: Instructions for all patient encounters Instructions to patient Instructions for patient Last Documented On 1 9:00AM ; [facility] Instructions for patient Last Documented On 1 11:31AM ; [facility] Intervention and counseling on cessation of tobacco use Last Documented On 7 10:50AM ; [facility] Instructions for patient Last Documented On 7 11:18AM ; [facility] Instructions for patient Last Documented On 7 2:03PM ; [facility] Recommend diet and exercise at least 30 min three times per week Last Documented On 6 10:29PM ; [facility] Recommend diet and exercise at least 30 min three times per week Last Documented On 5 10:31AM ; [facility] Education and Decision Aids were provided during visit for: Pill Count: Patient did not bring pain medication to appointment for pill count, per policy. Advised in order to continue to safely prescribe opioids, medication must be brought to each appointment Last Documented On 2 8:19AM ; [facility] Pill Count: Patient did not bring pain medication to appointment for pill count, per policy. Advised in order to continue to safely prescribe opioids, medication must be brought to each appointment Last Documented On 2 3:08PM ; [facility] Pill Count: Patient did not bring pain medication to appointment for pill count, per policy. Advised in order to continue to safely prescribe opioids, medication must be brought to each appointment Last Documented On 2 4:42PM ; [facility] Pill Count: Patient did not bring pain medication to appointment for pill count, per policy. Advised in order to continue to safely prescribe opioids, medication must be brought to each appointment Last Documented On 2 2:54PM ; [facility] Pill Count: Patient did not bring pain medication to appointment for pill count, per policy. Advised in order to continue to safely prescribe opioids, medication must be brought to each appointment Last Documented On 1 2:56PM ; [facility] Patient education about home safety plans for prevention of falls : Patient completed a Fall risk assesment and was provided fall risk education materials Last Documented On 1 8:31AM ; [facility] Patient education about anti biotics: need to finish even if feeling better Last Documented On 4 2:56PM ; [facility] Medical Equipment - Implanted Devices Includes: Current and historical Devices No Medical Equipment Recorded Medications Includes: Current and historical Medications Current Medications (continue as prescribed) amLODIPine Besylate 10 MG Oral Tablet 10/07/2023 Provider: LAURITA YOUNGBLOOD MD Diagnosis: Essential (prima ry) hypertension TAKE 1 TABLET BY MOUTH EVERY DAY Last Documented On 10/07/2023 5:21AM By J LUIS YOUNGBLOOD MD ; [facility] Daily Multivitamin Oral Capsule 12/05/2020 Provider: Diagnosis: Last Documented On 12/05/2020 8:27AM By Josefa BARBA ; [facility] ZyrTEC Allergy 10 MG Oral Capsule 11/04/2019 Provide r: Diagnosis: Last Documented On 11/04/2019 8:36AM By Kailyn BARBA ; [facility] Past Medications on file cloNIDine HCl 0.2 MG Oral Tablet 08/02/2023 - 01/29/2024 Provider: LAURITA YOUNGBLOOD MD Diagnosis: Essential (prima ry) hypertension TAKE 1 TABLET BY MOUTH TWICE A DAY Last Documented On 08/02/2023 1:14AM By J LUIS YOUNGBLOOD MD ; [facility] Metoprolol Succinate ER 25 MG Oral Tablet Extended Release 24 Hour 08/02/2023 - 01/29/2024 Provider: LAURITA YOUNGBLOOD MD Diagnosis: Essential (prima ry) hypertension TAKE 1 TABLET BY MOUTH EVERY DAY Last Documented On 08/02/2023 1:14AM By J LUIS YOUNGBLOOD MD ; [facility] Losartan Potassium-HCTZ 100-25 MG Oral Tablet 06/18/2023 - 12/15/2023 Provider: LAURITA YOUNGBLOOD MD Diagnosis: Essential (prima ry) hypertension TAKE 1 TABLET BY MOUTH EVERY DAY Last Documented On 06/18/2023 1:23PM By J LUIS YOUNGBLOOD MD ; [facility] Meloxicam 7.5 MG Oral Tablet 06/18/2023 - 12/15/2023 P rovider: LAURITA YOUNGBLOOD MD Diagnosis: TAKE 1 TABLET BY MOUTH TWICE A DAY Last Documented On 06/18/2023 1:23PM By J LUIS YOUNGBLOOD MD ; [facility] Metoprolol Succinate ER 25 MG Oral Tablet Extended Release 24 Hour 02/07/2023 - 08/02/2023 Provider: LAURITA YOUNGBLOOD MD Diagnosis: Essential (prima ry) hypertension One tablet daily Last Documented On 08/02/2023 1:13AM By J LUIS YOUNGBLOOD MD ; [facility] Metoprolol Succinate ER 50 MG Oral Tablet Extended Release 24 Hour 02/06/2023 - 02/07/2023 Provider: LAURITA YOUNGBLOOD MD Diagnosis: Essential (prima ry) hypertension TAKE 1 TABLET BY MOUTH EVERY DAY-DUE FOR APPT Last Documented On 02/07/2023 10:54AM By J LUIS YOUNGBLOOD MD ; [facility] cloNIDine HCl 0.2 MG Oral Tablet 02/06/2023 - 08/02/2023 Provider: LAURITA YOUNGBLOOD MD Diagnosis: Essential (prima ry) hypertension TAKE 1 TABLET BY MOUTH TWICE A DAY Last Documented On 08/02/2023 1:12AM By J LUIS YOUNGBLOOD MD ; [facility] amLODIPine Besylate 10 MG Oral Tablet 01/30/2023 - 10/07/2023 Provider: LAURITA YOUNGBLOOD MD Diagnosis: Essential (prima ry) hypertension One tablet daily Last Documented On 10/07/2023 5:18AM By J LUIS YOUNGBLOOD MD ; [facility] amLODIPine Besylate 10 MG Oral Tablet 01/14/2023 - 01/30/2023 Provider: LAURITA YOUNGBLOOD MD Diagnosis: Essential (prima ry) hypertension One tablet daily Last Documented On 01/30/2023 2:47PM By J LUIS YOUNGBLOOD MD ; [facility] Meloxicam 7.5 MG Oral Tablet 12/26/2022 - 06/18/2023 P rovider: LAURITA YOUNGBLOOD MD Diagnosis: TAKE 1 TABLET BY MOUTH TWICE A DAY Last Documented On 06/18/2023 1:11PM By J LUIS YOUNGBLOOD MD ; [facility] Losartan Potassium-HCTZ 100-25 MG Oral Tablet 12/25/2022 - 06/18/2023 Provider: LAURITA YOUNGBLOOD MD Diagnosis: Essential (prima ry) hypertension TAKE 1 TABLET BY MOUTH EVERY DAY Last Documented On 06/18/2023 1:11PM By J LUIS YOUNGBLOOD MD ; [facility] Metoprolol Succinate ER 50 MG Oral Tablet Extended Release 24 Hour 08/13/2022 - 02/06/2023 Provider: LAURITA YOUNGBLOOD MD Diagnosis: Essential (prima ry) hypertension TAKE 1 TABLET BY MOUTH EVERY DAY-DUE FOR APPT Last Documented On 02/06/2023 12:28PM By J LUIS YOUNGBLOOD MD ; [facility] cloNIDine HCl 0.2 MG Oral Tablet 08/13/2022 - 02/06/2023 Provider: LAURITA YOUNGBLOOD MD Diagnosis: Essential (prima ry) hypertension TAKE 1 TABLET BY MOUTH TWICE A DAY Last Documented On 02/06/2023 12:27PM By J LUIS YOUNGBLOOD MD ; [facility] Meloxicam 7.5 MG Oral Tablet 06/29/2022 - 12/26/2022 P rovider: LAURITA YOUNGBLOOD MD Diagnosis: TAKE 1 TABLET BY MOUTH TWICE A DAY Last Documented On 12/26/2022 8:47AM By Josefa BARBA ; [facility] Losartan Potassium-HCTZ 100-25 MG Oral Tablet 06/19/2022 - 12/25/2022 Provider: LAURITA YOUNGBLOOD MD Diagnosis: Essential (prima ry) hypertension TAKE 1 TABLET BY MOUTH EVERY DAY Last Documented On 12/25/2022 3:30PM By J LUIS YOUNGBLOOD MD ; [facility] Metoprolol Succinate ER 50 MG Oral Tablet Extended Release 24 Hour 05/14/2022 - 08/13/2022 Provider: KELLY ALLEN [facility]- STUDENT SUPPORT SERVICES DIRECTOR-BC Diagnosis: Essential (prima ry) hypertension TAKE 1 TABLET BY MOUTH EVERY DAY-due for appt Last Documented On 08/13/2022 1:08PM By J LUIS YOUNGBLOOD MD ; [facility] cloNIDine HCl 0.2 MG Oral Tablet 05/14/2022 - 08/13/2022 Provider: KELLY ALLEN [facility]- STUDENT SUPPORT SERVICES DIRECTOR-BC Diagnosis: Essential (prima ry) hypertension TAKE 1 TABLET BY MOUTH TWICE A DAY-due for appt Last Documented On 08/13/2022 1:08PM By J LUIS YOUNGBLOOD MD ; [facility] Meloxicam 7.5 MG Oral Tablet 04/02/2022 - 06/29/2022 Provider: KELLY NARVAEZ [facility]- STUDENT SUPPORT SERVICES DIRECTOR-BC Diagnosis: TAKE 1 TABLET BY MOUTH TWICE A DAY Last Documented On 06/29/2022 4:52PM By J LUIS YOUNGBLOOD MD ; [facility] Losartan Potassium-HCTZ 100-25 MG Oral Tablet 03/19/2022 - 06/19/2022 Provider: KELLY ALLEN [facility]- STUDENT SUPPORT SERVICES DIRECTOR-BC Diagnosis: Essential (prima ry) hypertension TAKE 1 TABLET BY MOUTH EVERY DAY Last Documented On 06/19/2022 8:31AM By J LUIS YOUNGBLOOD MD ; [facility] Paxlovid (300/100) 20 x 150 MG & 10 x 100MG Oral Tablet Therapy Pack 02/20/2022 - 06/22/2022 Provider: KELLY CASTILLOJethro [facility]- STUDENT SUPPORT SERVICES DIRECTOR-BC Diagnosis: COVID-19 as directed x 5 days Last Documented On 06/22/2022 1:49PM By Josefa BARBA ; [facility] cloNIDine HCl 0.2 MG Oral Tablet 11/21/2021 - 05/14/2022 Provider: KELLY ALLEN [facility]- STUDENT SUPPORT SERVICES DIRECTOR-BC Diagnosis: Essential (prima ry) hypertension One tablet twice a day Last Documented On 2 1:25PM By KELLY ALLEN [facility] ; [facility] cloNIDine HCl 0.2 MG Oral Tablet 10/27/2021 - 11/21/2021 Provider: KELLY ALLEN [facility] Diagnosis: Essential (prima ry) hypertension TAKE 1 TABLET BY MOUTH TWICE A DAY Last Documented On 2 8:45AM By KELLY ALLEN [facility] ; [facility] cloNIDine HCl 0.2 MG Oral Tablet 10/02/2021 - 10/27/2021 Provider: [facility] Diagnosis: Essential (prima ry) hypertension TAKE 1 TABLET BY MOUTH TWICE A DAY Last Documented On 2 12:22PM By MARIELLE MEJIA PA-C ; [facility] HYDROcodone-Acetaminophen 5- 325 MG Oral Tablet 09/06/2021 - 06/22/2022 Provider: KELLY ALLEN [facility] Diagnosis: Spinal stenosis, lumbosacral region 1/2 tab to 1 tab PO TID PRN pain---use sparingly Last Documented On 06/22/2022 1:49PM By Josefa BARBA ; [facility] cloNIDine HCl 0.2 MG Oral Tablet 09/06/2021 - 10/02/2021 Provider: KELLY ALLEN [facility] Diagnosis: Essential (prima ry) hypertension One tablet twice a day---dose increase Last Documented On 2 10:37AM By MARIELLE MEJIA PA-C ; [facility] Metoprolol Succinate ER 50 MG Oral Tablet Extended Release 24 Hour 08/28/2021 - 05/14/2022 Provider: KELLY [facility] Diagnosis: Essential (prima ry) hypertension TAKE 1 TABLET BY MOUTH EVERY DAY Last Documented On 2 1:26PM By KELLY ALLEN [facility] ; [facility] Losartan Potassium-HCTZ 100-25 MG Oral Tablet 08/28/2021 - 03/19/2022 Provider: KELLY ALLEN [facility] Diagnosis: Essential (prima ry) hypertension TAKE 1 TABLET BY MOUTH EVERY DAY Last Documented On 2 12:25PM By KELLY ALLEN [facility] ; [facility] cloNIDine HCl 0.1 MG Oral Tablet 08/28/2021 - 09/06/2021 Provider: KELLY ALLEN [facility] Diagnosis: Essential (prima ry) hypertension TAKE 1 TABLET BY MOUTH TWICE DAILY NEEDED IF BLOOD PRESSURE >160/90 Last Documented On 2 4:15PM By KELLY ALLEN [facility] ; [facility] Meloxicam 7.5 MG Oral Tablet 08/28/2021 - 04/02/2022 Provider: KELLY NARVAEZ [facility] Diagnosis: TAKE 1 TABLET BY MOUTH TWICE A DAY Last Documented On 2 11:35AM By [facility] ; [facility] Cyclobenzaprine HCl 5 MG Oral Tablet 06/09/2021 - 09/06/2021 Provider: KELLY ALLEN [facility] Diagnosis: Pain in right shoulder TAKE 1 TO 2 TABLETS BY MOUTH 3 TIMES A DAY NEEDED DIRECTED Last Documented On 2 5:07PM By KELLY ALLEN [facility] ; [facility] Metoprolol Succinate ER 50 MG Oral Tablet Extended Release 24 Hour 03/18/2021 - 08/28/2021 Provider: KELLY ALLEN [facility] Diagnosis: Essential (prima ry) hypertension TAKE 1 TABLET BY MOUTH EVERY DAY Last Documented On 2 11:20AM By MARIELLE MEJIA PA-C ; [facility] cloNIDine HCl 0.1 MG Oral Tablet 03/17/2021 - 08/28/2021 Provider: KELLY ALLEN [facility] Diagnosis: Essential (prima ry) hypertension TAKE 1 TABLET BY MOUTH TWICE DAILY NEEDED IF BLOOD PRESSURE >160/90 Last Documented On 2 11:09AM By MARIELLE MEJIA PA-C ; [facility] Allopurinol 100 MG Oral Tablet 03/09/2021 - 06/22/2022 Provider: KELLY NARVAEZ [facility] Diagnosis: Gout, unspecifie d TAKE 1 TABLET BY MOUTH EVERY DAY Last Documented On 06/22/2022 2:07PM By Josefa BARBA ; [facility] Losartan Potassium-HCTZ 100-25 MG Oral Tablet 03/09/2021 - 08/28/2021 Provider: KELLY ALLEN [facility] Diagnosis: Essential (prima ry) hypertension TAKE 1 TABLET BY MOUTH EVERY DAY Last Documented On 2 11:19AM By MARIELLE MEJIA PA-C ; [facility] Meloxicam 7.5 MG Oral Tablet 03/09/2021 - 08/28/2021 Provider: KELLY NARVAEZ [facility] Diagnosis: TAKE 1 TABLET BY MOUTH TWICE A DAY Last Documented On 2 10:58AM By MARIELLE MEJIA PA-C ; [facility] Cyclobenzaprine HCl 5 MG Oral Tablet 03/09/2021 - 06/09/2021 Provider: KELLY ALLEN [facility] Diagnosis: Pain in right shoulder as directed 1-2 tabs TID PRN Last Documented On 2 5:23PM By MARIELLE MEJIA PA-C ; [facility] Metoprolol Succinate ER 50 MG Oral Tablet Extended Release 24 Hour 03/09/2021 - 03/18/2021 Provider: KELLY ALLEN [facility] Diagnosis: Essential (prima ry) hypertension One tablet daily---dose increase Last Documented On 1 11:44AM By KELLY ALLEN [facility] ; [facility] cloNIDine HCl 0.1 MG Oral Tablet 03/09/2021 - 03/17/2021 Provider: KELLY ALLEN [facility] Diagnosis: Essential (prima ry) hypertension One tablet twice a day Last Documented On 1 11:20AM By KELLY ALLEN [facility] ; [facility] Allopurinol 100 MG Oral Tablet 03/02/2021 - 03/09/2021 Provider: LAURITA YOUNGBLOOD MD Diagnosis: Gout, unspecifie d TAKE 1 TABLET BY MOUTH EVERY DAY Last Documented On 1 9:17AM By KELLY [facility]EN [facility] ; [facility] Metoprolol Succinate ER 25 MG Oral Tablet Extended Release 24 Hour 02/26/2021 - 03/09/2021 Provider: LAURITA YOUNGBLOOD MD Diagnosis: Essential (prima ry) hypertension ONE TABLET DAILY, IF THE PUL SE IS CONSISTENTLY UNDER 60 WE MAY NEED TO CUT THIS IN HALF Last Documented On 1 9:10AM By KELLY [facility] ; [facility] cloNIDine HCl 0.1 MG Oral Tablet 02/23/2021 - 03/09/2021 Provider: KELLY ALLEN [facility] Diagnosis: Essential (prima ry) hypertension 1 tab PO BID PRN if bp >160/90 Last Documented On 1 9:08AM By KELLY [facility] ; [facility] Cyclobenzaprine HCl 5 MG Oral Tablet 02/23/2021 - 03/09/2021 Provider: KELLY ALLEN [facility] Diagnosis: Pain in right shoulder as directed 1-2 tabs TID PRN Last Documented On 1 9:15AM By KELLY ALLEN [facility] ; [facility] Losartan Potassium-HCTZ 100-25 MG Oral Tablet 01/01/2021 - 03/09/2021 Provider: LAURITA YOUNGBLOOD MD Diagnosis: Essential (prima ry) hypertension TAKE 1 TABLET BY MOUTH EVERY DAY Last Documented On 1 9:17AM By KELLY ALLEN [facility] ; [facility] traMADol HCl 50 MG Oral Tablet 12/05/2020 - 09/06/2021 Provider: LAURITA YOUNGBLOOD MD Diagnosis: Spinal stenosis, lumbosacral region 1 tab po up to tid prn Last Documented On 2 4:17PM By KELLY [facility] ; [facility] Metoprolol Succinate ER 25 MG Oral Tablet Extended Release 24 Hour 12/05/2020 - 02/26/2021 Provider: LAURITA YOUNGBLOOD MD Diagnosis: Essential (prima ry) hypertension One tablet daily, if the pul se is consistently under 60 we may need to cut this in half Last Documented On 02/26/2021 10:49PM By J LUIS YOUNGBLOOD MD ; [facility] Meloxicam 7.5 MG Oral Tablet 09/12/2020 - 03/09/2021 P rovider: LAURITA YOUNGBLOOD MD Diagnosis: TAKE 1 TABLET BY MOUTH TWICE A DAY Last Documented On 9:16AM By KELLY ALLEN [facility] ; [facility] Allopurinol 100 MG Oral Tablet 09/12/2020 - 03/02/2021 Provider: LAURITA YOUNGBLOOD MD Diagnosis: Gout, unspecifie d TAKE 1 TABLET BY MOUTH EVERY DAY Last Documented On 03/02/2021 10:50PM By J LUIS YOUNGBLOOD MD ; [facility] Losartan Potassium-HCTZ 100-25 MG Oral Tablet 06/23/2020 - 01/01/2021 Provider: LAURITA YOUNGBLOOD MD Diagnosis: Essential (prima ry) hypertension One tablet daily Last Documented On 01/01/2021 11:58PM By J LUIS YOUNGBLOOD MD ; [facility] Meloxicam 7.5 MG Oral Tablet 03/31/2020 - 09/12/2020 P rovider: LAURITA YOUNGBLOOD MD Diagnosis: TAKE 1 TABLET BY MOUTH TWICE A DAY Last Documented On 09/12/2020 3:06PM By JL UIS YOUNGBLOOD MD ; [facility] Allopurinol 100 MG Oral Tablet 01/25/2020 - 09/12/2020 Provider: LAURITA YOUNGBLOOD MD Diagnosis: Gout, unspecifie d TAKE 1 TABLET BY MOUTH EVERY DAY Last Documented On 09/12/2020 3:06PM By J LUIS YOUNGBLOOD MD ; [facility] Losartan Potassium 100 MG Or al Tablet 01/07/2020 - 06/23/2020 Provider: LAURITA YOUNGBLOOD MD Diagnosis: TAKE 1 TABLET BY MOUTH EVERY DAY Last Documented On 06/23/2020 2:23PM By J LUIS YOUNGBLOOD MD ; [facility] Allopurinol 100 MG Oral Tablet 09/07/2019 - 01/25/2020 Provider: LAURITA YOUNGBLOOD MD Diagnosis: Gout, unspecifie d One tablet daily Last Documented On 01/25/2020 10:32PM By J LUIS YOUNGBLOOD MD ; [facility] Meloxicam 7.5 MG Oral Tablet 09/01/2019 - 03/31/2020 Provider: MICKIE LEON [facility] Diagnosis: TAKE 1 TABLET BY MOUTH TWICE A DAY Last Documented On 03/31/2020 3:26PM By J LUIS YOUNGBLOOD MD ; [facility] hydroCHLOROthiazide 25 MG Oral Tablet 07/18/2019 - 12/05/2020 Provider: LAURITA YOUNGBLOOD MD Diagnosis: Essential (prima ry) hypertension One tablet daily Last Documented On 12/05/2020 8:23AM By Josefa BARBA ; [facility] Losartan Potassium 100 MG Or al Tablet 07/17/2019 - 01/07/2020 Provider: LAURITA YOUNGBLOOD MD Diagnosis: TAKE 1 TABLET BY MOUTH EVERY DAY Last Documented On 01/07/2020 3:09AM By J LUIS YOUNGBLOOD MD ; [facility] Allopurinol 100 MG Oral Tablet 06/16/2019 - 09/07/2019 Provider: KELLY NARVAEZ [facility]- Diagnosis: Gout, unspecifie d TAKE 1 TABLET BY MOUTH EVERY DAY--due for appt Last Documented On 09/07/2019 1:35PM By J LUIS YOUNGBLOOD MD ; [facility] Losartan Potassium-HCTZ 100- 25 MG Oral Tablet 04/23/2019 - 11/04/2019 Provider: LAURITA YOUNGBLOOD MD Diagnosis: TAKE 1 TABLET BY MOUTH EVERY DAY Last Documented On 11/04/2019 9:03AM By Josefa Narayan Roxy ; [facility] Losartan Potassium-HCTZ 100-25 MG Oral Tablet 04/20/2019 - 04/23/2019 Provider: LAURITA YOUNGBLOOD MD Diagnosis: Essential (prima ry) hypertension TAKE 1 TABLET BY MOUTH EVERY DAY Last Documented On 04/23/2019 4:01PM By J LUIS YOUNGBLOOD MD ; [facility] Meloxicam 7.5MG Oral Tablet 10/10/2018 - 09/01/2019 Provider: MICKIE LEON [facility] Diagnosis: TAKE 1 TABLET BY MOUTH TWICE A DAY Last Documented On 0 9:53AM By MICKIE OC[facility]PO [facility] ; [facility] Losartan Potassium-HCTZ 100-25MG Oral Tablet 10/02/2018 - 04/20/2019 Provider: LAURITA YOUNGBLOOD MD Diagnosis: Essential (prima ry) hypertension One tablet daily Last Documented On 04/20/2019 4:09AM By J LUIS YOUNGBLOOD MD ; [facility] Losartan Potassium-HCTZ 100-25MG Oral Tablet 07/07/2018 - 10/02/2018 Provider: LAURITA YOUNGBLOOD MD Diagnosis: Essential (prima ry) hypertension One tablet daily Last Documented On 10/02/2018 7:15PM By J LUIS YOUNGBLOOD MD ; [facility] Allopurinol 100MG Oral Tablet 05/29/2018 - 06/16/2019 Provider: KELLY NARVAEZ [facility] Diagnosis: Gout, unspecifie d One tablet daily Last Documented On 0 8:34AM By KELLY [facility] ; [facility] Olmesartan Medoxomil-HCTZ 40-25MG Oral Tablet 05/29/2018 - 07/07/2018 Provider: KELLY ALLEN [facility] Diagnosis: Essential (prima ry) hypertension TAKE 1 TABLET BY MOUTH EVERY DAY Last Documented On 07/07/2018 8:40PM By J LUIS YOUNGBLOOD MD ; [facility] Meloxicam 7.5MG Oral Tablet 04/16/2018 - 10/10/2018 Provider: MICKIE LEON [facility] Diagnosis: TAKE 1 TABLET BY MOUTH TWICE A DAY Last Documented On 9 8:38AM By MICKIE OC[facility] ; [facility] Olmesartan Medoxomil-HCTZ 40-25MG Oral Tablet 03/31/2018 - 05/29/2018 Provider: LAURITA YOUNGBLOOD MD Diagnosis: Essential (prima ry) hypertension TAKE 1 TABLET BY MOUTH EVERY DAY Last Documented On 9 10:58AM By KELLY [facility]EN [facility] ; [facility] Meloxicam 7.5MG Oral Tablet 01/17/2018 - 04/16/2018 Provider: MICKIE [facility] Diagnosis: TAKE 1 TABLET BY MOUTH TWICE A DAY Last Documented On 8 1:11PM By MICKIE [facility] ; [facility] Allopurinol 100MG Oral Tablet 12/25/2017 - 05/29/2018 Provider: LAURITA YOUNGBLOOD MD Diagnosis: Gout, unspecifie d One tablet daily Last Documented On 9 10:58AM By KELLY [facility]EN [facility] ; [facility] Meloxicam 7.5MG Oral Tablet 10/21/2017 - 01/17/2018 Pr ovider: AUSTIN AMARAL PA-C Diagnosis: One tablet twice a day Last Documented On 8 3:41PM By MICKIE OC[facility]PO [facility] ; [facility] Olmesartan Medoxomil-HCTZ 40-25MG Oral Tablet 10/07/2017 - 03/31/2018 Provider: LAURITA YOUNGBLOOD MD Diagnosis: Essential (prima ry) hypertension One tablet daily Last Documented On 03/31/2018 2:38PM By J LUIS YOUNGBLOOD MD ; [facility] Uloric 40MG Oral Tablet 06/12/2017 - 12/25/2017 Provid er: LAURITA YOUNGBLOOD MD Diagnosis: Gout, unspecifie d One tablet daily Last Documented On 12/25/2017 9:32PM By J LUIS YOUNGBLOOD MD ; [facility] Benicar HCT 40-25MG Oral Tablet 04/16/2017 - 10/07/2017 Provider: LAURITA YOUNGBLOOD MD Diagnosis: Essential (prima ry) hypertension Take one tablet by mouth daily Last Documented On 10/07/2017 11:13PM By J LUIS YOUNGBLOOD MD ; [facility] Pramipexole Dihydrochloride 0.25MG Oral Tablet 04/15/2017 - 05/29/2018 Provider: LAURITA YOUNGBLOOD MD Diagnosis: One tablet three times a day Last Documented On 05/29/2018 10:41AM By Marcy BARBA ; [facility] Meloxicam 7.5MG Oral Tablet 12/28/2016 - 10/21/2017 Pr ovider: LAURITA YOUNGBLOOD MD Diagnosis: Cervicalgia Take 1-2 tabs once daily Last Documented On 8 1:07PM By AUSTIN AMARAL PA-C ; [facility] Uloric 40MG Oral Tablet 12/21/2016 - 06/12/2017 Provid er: LAURITA YOUNGBLOOD MD Diagnosis: Gout, unspecifie d One tablet daily Last Documented On 06/12/2017 1:17PM By J LUIS YOUNGBLOOD MD ; [facility] Lortab 5-325MG Oral Tablet 11/28/2016 - 06/12/2017 Provider: BAO Jimenez Diagnosis: Unil inguinal he rnia, w/o obst or gangr, not spcf as recur 1-2 every 4-6 hours as needed Last Documented On 06/12/2017 8:22AM By ZULEMA BARBA ; [facility] PredniSONE 20MG Oral Tablet 11/15/2016 - 06/12/2017 Provider: LAURITA YOUNGBLOOD MD Diagnosis: Bronchitis, not specified as acute or chronic Take 2 tab PO once daily x 3 days Last Documented On 06/12/2017 8:21AM By ZULEMA BARBA ; [facility] Augmentin 875-125MG Oral Tablet 11/15/2016 - 06/12/2017 Provider: LAURITA YOUNGBLOOD MD Diagnosis: Bronchitis, not specified as acute or chronic One tablet twice a day Last Documented On 06/12/2017 8:21AM By ZULEMA BARBA ; [facility] Azithromycin 250MG Oral Tablet 11/06/2016 - 06/12/2017 Provider: KELLY ALLEN [facility] STUDENT SUPPORT SERVICES DIRECTOR-BC Diagnosis: Bronchitis, not specified as acute or chronic 2 tabs on day one then one tab on days 2-5 Last Documented On 06/12/2017 8:21AM By ZULEMA BARBA ; [facility] PredniSONE 20MG Oral Tablet 11/06/2016 - 11/15/2016 Provider: KELLY ALLEN [facility] STUDENT SUPPORT SERVICES DIRECTOR-BC Diagnosis: Bronchitis, not specified as acute or chronic Take 2 tab PO once daily x 3 days Last Documented On 11/15/2016 9:01AM By J LUIS YOUNGBLOOD MD ; [facility] Benzonatate 200MG Oral Capsule, conventional 11/06/2016 - 06/12/2017 Provider: KELLY ALLEN [facility] STUDENT SUPPORT SERVICES DIRECTOR-BC Diagnosis: Bronchitis, not specified as acute or chronic TID PRN cough Last Documented On 06/12/2017 8:22AM By ZULEMA BARBA ; [facility] ProAir HFA 108 (90 Base)MCG/ACT Inhalation Aerosol, solution 11/06/2016 - 06/12/2017 Provider: KELLY ALLEN [facility] STUDENT SUPPORT SERVICES DIRECTOR-BC Diagnosis: Bronchitis, not specified as acute or chronic 1-2 puffs every 4-6 hours as needed. No more than 12 puffs/day Last Documented On 06/12/2017 8:25AM By ZULEMA BARBA ; [facility] Benicar HCT 40-25MG Oral Tablet 10/25/2016 - 04/16/2017 Provider: LAURITA YOUNGBLOOD MD Diagnosis: Essential (prima ry) hypertension Take one tablet by mouth daily Last Documented On 04/16/2017 9:46PM By J LUIS YOUNGBLOOD MD ; [facility] Mirapex 0.25MG Oral Tablet 10/22/2016 - 04/15/2017 Pro vider: LAURITA YOUNGBLOOD MD Diagnosis: One tablet three times a day Last Documented On 04/15/2017 12:48PM By J LUIS YOUNGBLOOD MD ; [facility] Parafon Forte DSC 500MG Oral Tablet 07/18/2016 - 11/06/2016 Provider: KELLY NARVAEZ [facility] STUDENT SUPPORT SERVICES DIRECTOR-BC Diagnosis: Strain unsp musc/fasc/tend at shldr/up arm, right arm, init as directed 1/2 to 1 tab nikki ry 6-8 hours as needed for muscle spasms. No alcohol Last Documented On 11/06/2016 3:02PM By ZULEMA BARBA ; [facility] Meloxicam 7.5MG Oral Tablet 07/18/2016 - 12/28/2016 Provider: KELLY NARVAEZ PMHNP-BC STUDENT SUPPORT SERVICES DIRECTOR-BC Diagnosis: Cervicalgia Take 1-2 tabs once daily Last Documented On 12/28/2016 11:00AM By J LUIS YOUNGBLOOD MD ; [facility] Parafon Forte DSC 500MG Oral Tablet 06/27/2016 - 07/18/2016 Provider: KELLY NARVAEZ PMHNP-BC STUDENT SUPPORT SERVICES DIRECTOR-BC Diagnosis: Strain unsp musc/fasc/tend at shldr/up arm, right arm, init as directed 1/2 to 1 tab nikki ry 6-8 hours as needed for muscle spasms. No alcohol Last Documented On 7 10:39AM By KELLY ALLEN STUDENT SUPPORT SERVICES DIRECTOR-BC ; [facility] Hydrocodone-Acetaminophen 5- 325MG Oral Tablet 06/27/2016 - 11/06/2016 Provider: KELLY ALLEN PMHNP-BC STUDENT SUPPORT SERVICES DIRECTOR-BC Diagnosis: Cervicalgia 1 every 6 hours as needed Last Documented On 11/06/2016 3:02PM By ZULEMA BARBA ; [facility] Duexis 800-26.6MG Oral Tablet 06/27/2016 - 11/06/2016 Provider: KELLY ALLEN PMP-BC STUDENT SUPPORT SERVICES DIRECTOR-BC Diagnosis: Strain unsp musc/fasc/tend at shldr/up arm, right arm, init One tablet three times a day Last Documented On 11/06/2016 3:02PM By ZULEMA BARBA ; [facility] Parafon Forte DSC 500MG Oral Tablet 06/19/2016 - 06/27/2016 Provider: KELLY CAMACHOTASIA NARVAEZ PMHNP-BC STUDENT SUPPORT SERVICES DIRECTOR-BC Diagnosis: Strain unsp musc/fasc/tend at shldr/up arm, right arm, init as directed 1/2 to 1 tab nikki ry 6-8 hours as needed for muscle spasms. No alcohol Last Documented On 7 11:24AM By KELLY ALLEN [facility] ; [facility] Hydrocodone-Acetaminophen 5- 325MG Oral Tablet 06/19/2016 - 06/27/2016 Provider: KELLY ALLEN PMP-BC STUDENT SUPPORT SERVICES DIRECTOR-BC Diagnosis: Cervicalgia 1 every 6 hours as needed Last Documented On 7 11:26AM By KELLY ALLEN [facility] ; [facility] Medrol 4MG Oral Tablet 06/19/2016 - 11/06/2016 Provide r: KELLY Ramsey TIFFANY PMHNP-BC STUDENT SUPPORT SERVICES DIRECTOR-BC Diagnosis: Cervicalgia Take 6 tabs day 1, 5 tabs da y 2, 4 tabs day 3, 3 tabs day 4, 2 tabs day 5, 1 tab day 6 Last Documented On 11/06/2016 3:02PM By ZULEMA BARBA ; [facility] Ibuprofen 800MG Oral Tablet 06/19/2016 - 06/27/2016 [facility] STUDENT SUPPORT SERVICES DIRECTOR-BC Diagnosis: Strain unsp musc/fasc/tend at shldr/up arm, right arm, init One tablet three times a day Last Documented On 7 11:20AM By KELLY ALLEN [facility] ; [facility] Uloric 40 MG Tablet 06/04/2016 - 12/21/2016 Provider: LAURITA YOUNGBLOOD MD Diagnosis: Gout, unspecifie d One tablet daily Last Documented On 12/21/2016 12:26AM By J LUIS YOUNGBLOOD MD ; [facility] Mirapex 0.25 MG Tablet 05/24/2016 - 10/22/2016 Provide r: LAURITA YOUNGBLOOD MD Diagnosis: One tablet three times a day DOSE INCREASE Last Documented On 10/22/2016 11:00AM By J LUIS YOUNGBLOOD MD ; [facility] Benicar HCT 40-25 MG Tablet 05/02/2016 - 10/25/2016 Provider: LAURITA YOUNGBLOOD MD Diagnosis: Essential (prima ry) hypertension One tablet daily Last Documented On 10/25/2016 11:25AM By ROME BARBA ; [facility] Uloric 40 MG Tablet 03/08/2016 - 05/24/2016 Provider: MERE CASTRO PA-C Diagnosis: Gout, unspecifie d One tablet daily Last Documented On 06/04/2016 3:56PM By J LUIS YOUNGBLOOD MD ; [facility] Mirapex 0.125 MG Tablet 03/08/2016 - 10/22/2016 Provid er: MERE CASTRO PA-C Diagnosis: One tablet daily Last Documented On 10/22/2016 11:00AM By J LUIS YOUNGBLOOD MD ; [facility] Benicar HCT 40-25 MG Tablet 12/07/2015 - 05/02/2016 Provider: LAURITA YOUNGBLOOD MD Diagnosis: Essential (prima ry) hypertension One tablet daily Last Documented On 05/02/2016 9:33PM By J LUIS YOUNGBLOOD MD ; [facility] Benicar HCT 40-25 MG Tablet 11/10/2015 - 12/07/2015 Provider: MERE CASTRO PA-C Diagnosis: Essential (prima ry) hypertension One tablet daily Last Documented On 12/07/2015 11:01PM By J LUIS YOUNGBLOOD MD ; [facility] Mirapex 0.125 MG Tablet 09/26/2015 - 03/08/2016 Provid er: LAURITA YOUNGBLOOD MD Diagnosis: TAKE 1 TABLET BY MOUTH 3 TIMES A DAY Last Documented On 6 10:52AM By MERE CASTRO PA-C ; [facility] Mirapex 0.125 MG Tablet 09/22/2015 - 09/26/2015 Provid er: LAURITA YOUNGBLOOD MD Diagnosis: TAKE 1 TABLET BY MOUTH 3 TIMES A DAY Last Documented On 09/26/2015 12:33PM By J LUIS YOUNGBLOOD MD ; [facility] Uloric 40 MG Tablet 08/10/2015 - 03/08/2016 Provider: LAURITA YOUNGBLOOD MD Diagnosis: Gout, unspecifie d TAKE 1 TABLET BY MOUTH EVERY DAY Last Documented On 6 10:51AM By MERE CASTRO PA-C ; [facility] Mirapex 0.125 MG Tablet 07/22/2015 - 09/22/2015 Provid er: LAURITA YOUNGBLOOD MD Diagnosis: One tablet three times a day Last Documented On 09/22/2015 12:46PM By J LUIS YOUNGBLOOD MD ; [facility] Benicar HCT 40-25 MG Tablet 05/18/2015 - 11/10/2015 Provider: MERE CASTRO PA-C Diagnosis: Essential (prima ry) hypertension ONE TABLET DAILY Last Documented On 6 10:24AM By MERE CASTRO PA-C ; [facility] CeleBREX 200 MG Capsule, conventional 04/05/2015 - 05/24/2016 Provider: LAURITA YOUNGBLOOD MD Diagnosis: 1 capsule daily Last Documented On 05/24/2016 4:30PM By ROME BARBA ; [facility] Aspirin 81 MG Tablet 04/05/2015 - 05/29/2018 Provider: LAURITA YOUNGBLOOD MD Diagnosis: Last Documented On 05/29/2018 10:42AM By Marcy BARBA ; [facility] Uloric 40 MG Tablet 02/16/2015 - 08/10/2015 Provider: LAURITA YOUNGBLOOD MD Diagnosis: Gout, unspecifie d One tablet daily Last Documented On 08/10/2015 1:56AM By J LUIS YOUNGBLOOD MD ; [facility] Benicar HCT 40-25 MG Tablet 08/25/2014 - 05/18/2015 Provider: LAURITA YOUNGBLOOD MD Diagnosis: BENIGN HYPERTENS ION One tablet daily Last Documented On 5 9:28AM By MERE CASTRO PA-C ; [facility] Colace 100 MG Capsule, conventional 08/25/2014 - 04/05/2015 Provider: LAURITA YOUNGBLOOD MD Diagnosis: CONSTIPATION NOS as directed ONE CAP ONCE OR TWICE DAILY Last Documented On 04/05/2015 3:40PM By NISHA SMITH ; [facility] Cyclobenzaprine HCl 10 MG Tablet 08/25/2014 - 04/05/2015 Provider: LAURITA YOUNGBLOOD MD Diagnosis: SPASM OF MUSCLE as directed 1/2 TO ONE TAB PO TID PRN Last Documented On 04/05/2015 3:40PM By NISHA SMITH ; [facility] Lyrica 50 MG Capsule, conventional 08/25/2014 - 04/05/2015 Provider: LAURITA YOUNGBLOOD MD Diagnosis: Lumbago as directed ONE CAP UP TO TID PRN FOR PAIN Last Documented On 04/05/2015 3:41PM By NISHA SMITH ; [facility] Uloric 40 MG Tablet 08/25/2014 - 02/16/2015 Provider: LAURITA YOUNGBLOOD MD Diagnosis: GOUT NOS One tablet daily Last Documented On 02/16/2015 9:53AM By J LUIS YOUNGBLOOD MD ; [facility] Benicar HCT 40-25 MG Tablet 08/19/2014 - 08/24/2014 Provider: LAURITA YOUNGBLOOD MD Diagnosis: BENIGN HYPERTENS ION One tablet daily Last Documented On 08/25/2014 10:22AM By J LUIS YOUNGBLOOD MD ; [facility] Benicar HCT 40-25 MG OR TABS 06/22/2014 - 08/19/2014 Provider: LAURITA YOUNGBLOOD MD Diagnosis: BENIGN HYPERTENS ION Last Documented On 08/19/2014 2:23PM By J LUIS YOUNGBLOOD MD ; [facility] Uloric 40 MG OR TABS 05/17/2014 - 08/24/2014 Provider: LAURITA YOUNGBLOOD MD Diagnosis: GOUT NOS TAKE ONE TABLET BY MOUTH ONC E DAILY, CAN DO 90 DAY INSTEAD IF CHEAPER FOR HIM Last Documented On 08/25/2014 10:22AM By J LUIS YOUNGBLOOD MD ; [facility] Cheratussin AC 100-10 MG/5ML OR SYRP 04/28/2014 - 08/24/2014 Provider: LAURITA YOUNGBLOOD MD Diagnosis: ACUTE BRONCHITIS 1-2 TSP PO TID PRN Last Documented On 08/24/2014 4:09PM By DARION BARBA ; [facility] predniSONE 20 MG OR TABS 04/28/2014 - 08/24/2014 Provi hi: LAURITA YOUNGBLOOD MD Diagnosis: ACUTE BRONCHITIS Last Documented On 08/24/2014 4:09PM By DARION BARBA ; [facility] Azithromycin 500 MG OR TABS 04/28/2014 - 08/24/2014 Provider: LAURITA YOUNGBLOOD MD Diagnosis: PNEUMONIA, ORGAN ISM NOS Last Documented On 08/24/2014 4:09PM By DARION BARBA ; [facility] Benicar HCT 40-25 MG OR TABS 03/19/2014 - 06/22/2014 Provider: LAURITA YOUNGBLOOD MD Diagnosis: BENIGN HYPERTENS ION Last Documented On 06/22/2014 12:16PM By J LUIS YOUNGBLOOD MD ; [facility] Benicar HCT 40-25 MG OR TABS 12/22/2013 - 03/19/2014 Provider: LAURITA YOUNGBLOOD MD Diagnosis: BENIGN HYPERTENS ION Last Documented On 03/19/2014 4:20PM By J LUIS YOUNGBLOOD MD ; [facility] Uloric 40 MG OR TABS 11/16/2013 - 05/17/2014 Provider: LAURITA YOUNGBLOOD MD Diagnosis: GOUT NOS Last Documented On 05/17/2014 12:56PM By J LUIS YOUNGBLOOD MD ; [facility] Doxycycline Hyclate 100 MG OR TABS 10/09/2013 - 04/28/2014 Provider: MERE CASTRO PA-C Diagnosis: INSECT BITE TRUN K Last Documented On 04/28/2014 11:17AM By [email or web address] ; [facility] Benicar HCT 40-25 MG OR TABS 09/23/2013 - 12/22/2013 Provider: LAURITA YOUNGBLOOD MD Diagnosis: BENIGN HYPERTENS ION TAKE ONE TABLET BY MOUTH ONCE DAILY Last Documented On 12/22/2013 12:15PM By J LUIS YOUNGBLOOD MD ; [facility] Benicar HCT 40-25 MG OR TABS 07/02/2013 - 09/23/2013 Provider: LAURITA YOUNGBLOOD MD Diagnosis: BENIGN HYPERTENS ION TAKE ONE TABLET BY MOUTH ONCE DAILY Last Documented On 09/23/2013 7:16AM By J LUIS YOUNGBLOOD MD ; [facility] Uloric 40 MG OR TABS 05/01/2013 - 11/16/2013 Provider: LAURITA YOUNGBLOOD MD Diagnosis: GOUT NOS TAKE ONE TABLET BY MOUTH ONCE DAILY Last Documented On 11/16/2013 4:09PM By J LUIS YOUNGBLOOD MD ; [facility] Benicar HCT 40-25 MG OR TABS 04/14/2013 - 07/02/2013 Provider: LAURITA YOUNGBLOOD MD Diagnosis: BENIGN HYPERTENS ION TAKE ONE TABLET BY MOUTH ONCE DAILY Last Documented On 07/02/2013 4:53PM By J LUIS YOUNGBLOOD MD ; [facility] Benicar HCT 40-25 MG OR TABS 02/13/2013 - 04/14/2013 Provider: LAURITA YOUNGBLOOD MD Diagnosis: BENIGN HYPERTENS ION TAKE ONE TABLET BY MOUTH ONCE DAILY Last Documented On 04/14/2013 12:16PM By J LUIS YOUNGBLOOD MD ; [facility] Benicar HCT 40-25 MG OR TABS 12/12/2012 - 02/13/2013 Provider: LAURITA YOUNGBLOOD MD Diagnosis: BENIGN HYPERTENS ION TAKE ONE TABLET BY MOUTH ONCE DAILY Last Documented On 02/13/2013 3:59PM By J LUIS YOUNGBLOOD MD ; [facility] Uloric 40 MG OR TABS 11/28/2012 - 05/01/2013 Provider: LAURITA YOUNGBLOOD MD Diagnosis: GOUT NOS TAKE ONE TABLET BY MOUTH ONCE DAILY Last Documented On 05/01/2013 11:46AM By J LUIS YOUNGBLOOD MD ; [facility] Benicar HCT 40-25 MG OR TABS 11/11/2012 - 12/12/2012 Provider: LAURITA YOUNGBLOOD MD Diagnosis: BENIGN HYPERTENS ION TAKE ONE TABLET BY MOUTH ONCE DAILY Last Documented On 12/12/2012 12:47PM By J LUIS YOUNGBLOOD MD ; [facility] Uloric 40 MG OR TABS 08/28/2012 - 11/28/2012 Provider: LAURITA YOUNGBLOOD MD Diagnosis: GOUT NOS Last Documented On 11/28/2012 1:02PM By J LUIS YOUNGBLOOD MD ; [facility] Uloric 40 MG OR TABS 08/18/2012 - 07/02/2013 Provider: Diagnosis: SAMPLES GIVEN Last Documented On 07/02/2013 4:20PM By DARION BARBA ; [facility] Uloric 40 MG OR TABS 08/18/2012 - 08/28/2012 Provider: LAURITA YOUNGBLOOD MD Diagnosis: GOUT NOS Last Documented On 08/28/2012 5:00PM By J LUIS YOUNGBLOOD MD ; [facility] Benicar HCT 40-25 MG OR TABS 08/07/2012 - 11/11/2012 Provider: LAURITA YOUNGBLOOD MD Diagnosis: BENIGN HYPERTENS ION Last Documented On 11/11/2012 1:13PM By J LUIS YOUNGBLOOD MD ; [facility] Benicar HCT 40-25 MG OR TABS 12/11/2011 - 08/07/2012 Provider: PHILLY Starks Diagnosis: BENIGN HYPERTENS ION Last Documented On 08/07/2012 4:49PM By J LUIS YOUNGBLOOD MD ; [facility] Allopurinol 100 MG OR TABS 11/27/2011 - 08/07/2012 Pro vider: LAURITA YOUNGBLOOD MD Diagnosis: GOUT NOS Last Documented On 08/07/2012 4:25PM By JAMARCUS SANCHEZ CMA ; [facility] Benicar HCT 40-25 MG OR TABS 11/26/2011 - 12/11/2011 Provider: LAURITA YOUNGBLOOD MD Diagnosis: BENIGN HYPERTENS ION Last Documented On 12/11/2011 9:52AM By PHILLY CONROY MD ; [facility] Benicar HCT 20-12.5 MG OR TABS 12/21/2010 - 03/03/2012 Provider: AUSTIN ARAUJO CH, PA-C Diagnosis: HYPERTENSION NOS TAKE ONE TABLET BY MOUTH ONCE DAILY Last Documented On 03/03/2012 2:49PM By JOSE YOO MA ; [facility] Benicar HCT 20-12.5 MG OR TABS 12/18/2010 - 12/21/2010 Provider: LAURITA YOUNGBLOOD MD Diagnosis: BENIGN HYPERTENS ION TAKE ONE TABLET BY MOUTH ONCE DAILY Last Documented On 1 9:29AM By AUSTIN AMARAL PA-C ; [facility] Benicar HCT 20-12.5 MG OR TABS 09/22/2010 - 12/18/2010 Provider: LAURITA YOUNGBLOOD MD Diagnosis: BENIGN HYPERTENS ION CAN ALTERNATIVLY GIVE 90 DAY FILL IF CHEAPER FOR THE PT Last Documented On 12/18/2010 3:10PM By J LUIS YOUNGBLOOD MD ; [facility] Benicar HCT 20-12.5 MG OR TABS 03/23/2010 - 09/22/2010 Provider: LAURITA YOUNGBLOOD MD Diagnosis: BENIGN HYPERTENS ION PLEASE MAKE SURE HE HAS 6 MO NTHS OF REFILLS AND IF 90 DAY IS CHEAPER FOR HIM THIS IS FINE TOO Last Documented On 09/22/2010 2:24PM By J LUIS YOUNGBLOOD MD ; [facility] Benicar HCT 20-12.5 MG OR TABS 03/23/2010 - 03/23/2010 Provider: Diagnosis: Last Documented On 03/23/2010 7:28PM By J LUIS YOUNGBLOOD MD ; [facility] Benicar HCT 20-12.5 MG OR TABS 03/13/2010 - 03/23/2010 Provider: LAURITA YOUNGBLOOD MD Diagnosis: BENIGN HYPERTENS ION Last Documented On 03/23/2010 4:35PM By JOLENE GRAY MA ; [facility] Benicar HCT 20-12.5 MG OR TABS 03/13/2010 - 03/13/2010 Provider: LAURITA YOUNGBLOOD MD Diagnosis: BENIGN HYPERTENS ION Last Documented On 03/13/2010 11:48AM By J LUIS YOUNGBLOOD MD ; [facility] Diovan HCT 80-12.5 MG OR TABS 03/09/2010 - 03/23/2010 Provider: LAURITA YOUNGBLOOD MD Diagnosis: BENIGN HYPERTENS ION Last Documented On 03/23/2010 4:42PM By J LUIS YOUNGBLOOD MD ; [facility] Aspirin 81 MG OR TABS 03/09/2010 - 04/28/2014 Provider : Diagnosis: Last Documented On 04/28/2014 11:17AM By [email or web address] ; [facility] amLODIPine Besylate 5 MG OR TABS 03/09/2010 - 03/23/20 Provider: Diagnosis: Last Documented On 03/23/2010 4:35PM By JOLENE GRAY MA ; [facility] Lisinopril 20 MG OR TABS 03/09/2010 - 03/23/2010 Provi hi: Diagnosis: Last Documented On 03/23/2010 4:35PM By JOLENE GRAY MA ; [facility] Medications Administered Includes: Administered Medications in patient's chart No Administered Medications Recorded Results Includes: Results from 07/28/2023 through 07/27/2024 No Results Recorded For Specified Dates History of Present Illness History of Present Illness not supported for this document type No History of Present Illness Recorded Social History Description Last Updated Tobacco non-user 2023 Last Documented On 4 12:35PM ; [facility] Former smoker 02/23/2021 Last Documented On 1 12:07PM ; [facility] Stopped smoking 40 years ago 02/23/2021 Last Documented On 1 12:07PM ; [facility] Non-smoker 11/04/2019 Last Documented On 0 1:14AM ; [facility] Good exercise habits 06/24/2017 Last Documented On 8 1:07AM ; [facility] No caffeine use 06/24/2017 Last Documented On 8 1:07AM ; [facility] Not using drugs 06/24/2017 Last Documented On 8 1:07AM ; [facility] Social history unchanged 06/24/2017 Last Documented On 8 1:07AM ; [facility] Smoking Status Unknown Procedures and Surgical History Surgical History Last Updated History of back surgery 04/19/200703/23 Last Documented On 0 7:30PM ; [facility] Medical History Includes: Medical History in patient's chart Description Last Updated RT ING HERNIA REPAIR WITH MESH 06/2023 Last Documented On 4 12:35PM ; [facility] Pt does not get blood pressure checked a t other facility 2023 Last Documented On 4 12:35PM ; [facility] Vaccine history 2023 Last Documented On 4 12:35PM ; [facility] Has a fear of falling. 07/19/2021 Last Documented On 2 6:56PM ; [facility] Blood pressure was high 04/27/2021 Last Documented On 1 4:01PM ; [facility] Hypertension 04/27/2021 Last Documented On 1 4:01PM ; [facility] Taking medication for high blood pressur e 04/27/2021 Last Documented On 1 4:01PM ; [facility] Has had no fall in the last 12 months. 0 11/04/2019 Last Documented On 0 1:14AM ; [facility] No recent change in medical history 09/2017 Last Documented On 8 1:07AM ; [facility] Surgery BACK SURGERY 05/08/07 03/23/2010 Last Documented On 0 7:30PM ; [facility] Family History Includes: Family History in patient's chart Description Last Updated Family history unchanged 09/12/2016 Last Documented On 7 8:23AM ; [facility] Family history of hypertension 0 Last Documented On 0 7:30PM ; [facility] Heart disease 03/23/2010 Last Documented On 0 7:30PM ; [facility] Review of Systems Review of Systems not supported for this document type No Review of Systems Recorded Mental Status Description Oriented to time, place, and person Functional Status No Functional Status Recorded Physical Exam Physical Exam not supported for this document type No Physical Exam Recorded Immunizations Includes: Immunizations in patient's chart Vaccine Dose # Date Site Reaction(s) Status Source COVID-19 Moderna 1 07/06/2020 Complete (Re ported) Patient Last Documented On 1 8:30AM ; [facility] COVID-19 Moderna 2 08/08/2020 Complete (Re ported) Patient Last Documented On 1 8:30AM ; [facility] COVID-19 Moderna 4 03/11/2021 Left Arm Complete (R eported) Patient Last Documented On 3 2:09PM ; [facility] COVID-19 Moderna 5 10/02/2021 Left Arm Complete (R eported) Patient Last Documented On 3 2:09PM ; [facility] COVID-19 Moderna 3 05/25/2022 Complete (Re ported) Patient Last Documented On 3 11:05AM ; [facility] COVID-19, unspecified 1 02/27/2023 Left Arm Complete (Reported) Patient Last Documented On 02/27/2023 2:30PM ; [facility] Note: Pt got Covid booster at [facility]. Fluad, Quadravalent 1 02/26/2023 Right Deltoid Complete (Reported) Patient Last Documented On 3 8:58AM ; [facility] Fluzone High-dose Quadrivalent 1 01/26/2020 Left Deltoid Complete (Reported) Pat ient Last Documented On 3 8:58AM ; [facility] Fluzone High-dose Quadrivalent 2 02/15/2021 Left Deltoid Complete (Reported) Pat ient Last Documented On 3 8:58AM ; [facility] Fluzone High-dose Quadrivalent 3 02/11/2022 Left Deltoid Complete (Reported) Pat ient Last Documented On 3 8:58AM ; [facility] Hepatitis B (HepB), adult dosage 1 04/20/1996 Complete (Reported) Patient Last Documented On 0 2:22PM ; [facility] Hepatitis B (HepB), adult dosage 2 05/18/1996 Complete (Reported) Patient Last Documented On 0 2:22PM ; [facility] Hepatitis B (HepB), adult dosage 3 10/19/1996 Complete (Reported) Patient Last Documented On 0 2:22PM ; [facility] Influenza (High dose ) PF 2 02/26/2018 Left Deltoid Complete (Reported) Patient Last Documented On 3 8:58AM ; [facility] Influenza (High dose ) PF 3 02/17/2019 Left Deltoid Complete (Reported) Patient Last Documented On 3 8:58AM ; [facility] Influenza (High dose ) PF 1 01/26/2020 Com plete (Reported) Patient Last Documented On 0 9:36AM ; [facility] Influenza (Quadrivalent) PF 0.5ml 1 02/19/2017 Complete (Reported) Patient Last Documented On 0 2:22PM ; [facility] Influenza (Quadrivalent) PF 0.5ml 2 02/26/2018 Complete (Reported) Patient Last Documented On 0 2:22PM ; [facility] Influenza (Quadrivalent) PF 0.5ml 3 02/17/2019 Complete (Reported) Patient Last Documented On 0 2:22PM ; [facility] Influenza (Quadrivalent) PF 0.5ml 4 02/11/2022 Complete (Reported) Patient Last Documented On 3 2:10PM ; [facility] Influenza (Quadrivalent)36 mo.& older PF 0.5ml (SD) 1 03/07/2016 Left Deltoid Complete (Administered) [facility] Last Documented On 6 3:59PM ; [facility] Influenza (Trivalent) split virus-PF (ID) 1 03/07/2016 Left Deltoid Complete (Reported) Pa tient Last Documented On 3 8:58AM ; [facility] Pneumococcal Polyvalent (PPV23) 1 02/17/2019 Complete (Reported) Patient Last Documented On 0 4:31PM ; [facility] Prevnar (PCV13) 1 02/26/2018 Complete (Rep orted) Patient Last Documented On 0 2:22PM ; [facility] Shingrix (Shingles) 1 01/07/2018 Complete (Reported) Patient Last Documented On 0 4:32PM ; [facility] Td 1 04/28/2013 Complete (Reported) P atient Last Documented On 4 2:32PM ; [facility] Tdap (Boostrix) 1 04/28/2013 Left Deltoid Complete (Reported) Patient Last Documented On 3 8:58AM ; [facility] Zostavax 1 10/30/2017 Complete (Reported) Patient Last Documented On 8 7:56AM ; [facility] Allergies Includes: Active, inactive, and resolved Allergies Substance Type Reaction Onset Date Resolved Date Statu s SEASONAL Allergy 11/04/2019 Active Last Documented On 4 10:43AM ; [facility] Insurance Includes: Active Insurance Policies Plan Name Member ID Group # Subscriber Relationship Effect ion Dates 1 - MEDICARE PART A CLAIMS/NGS [id number] LEIA Goddard 07/18/2017 - Unknown 2 - [employer] [id number] LEIA Goddard Clinical Notes Includes: Signed Clinical Notes starting from 06/08/2022 No Clinical Notes Recorded
--- OUTSIDE RECORDS SUMMARY | 2024-07-27 14:57 | XMS_ITS | Clinical Summary ---
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[employer] Gender Identity Not on file Sexual Orientation Not on file Obstetrics History Last Filed Vital Signs Vital Sign Reading [...] 08/07/2023 10:38 AM CDT Plan of Treatment Health Maintenance Due Date Last Done Comments Colon Cancer Screening-Colonoscopy 1950 Depression Screening 1950 Fall Risk Assessment 1950 Hepatitis C Screening 1950 Abdominal Aortic Aneurysm (A AA) Screen 2017 Well Visit 65+ 2017 Zoster Vaccine (3 of 3) 03/04/2018 01/07/2018, 10/30 DTaP/Tdap/Td Vaccine (2 - Td or Tdap) 04/28/2023 04/28/2013 Covid-19 Vaccine (3 - 2023-2 5 season) 2024 08/08/2020, 07/06/2020 Influenza Vaccine (#1) 2024 , 02/17/2019, 02/26/2018, Additional history exists Hepatitis B Screening Completed 10/19/1996 , 05/18/1996, 04/20/1996 Pneumococcal vaccine 65+ Completed 02/17/2019, 02/17 [place] [address] MEDICARE [facility] MEDICARE [facility] [place] [address] MEDICARE [place] [place] [address] Care Teams Supervisor Twisting Department Relationship Specialty Start Date End Date Curt Neri MD PCP - General 08/17/16 Curt Neri MD 08/17/16
--- OUTSIDE RECORDS SUMMARY | 2024-07-27 14:57 | XMS_ITS | Clinical Summary ---
Author Organization [facility] Address [address] [facility] [place] [address] Care Team Providers Care Mill Attendant Name Role Phone Curt Neri MD Primary Care Provider [phone] Source Comments [facility],non-owned Affiliates and Associated Physician Practices is amultiple site organization consisting of ambulatory clinics and hospital sitesin [place], [place], [place] and [place]. This disclosure is being madepursuant to the Care Everywhere program and may not contain all information available regarding this patient. Last updated 18.[facility] Allergies No known active allergies Medications * Be aware that medications may not be up to date on this document. Alwaysverify current medications with the patient. Medication Sig Dispensed Refills Start Date End Date Status MELOXICAM PO Active Febuxostat (ULORIC PO) Ac tive Social History Tobacco Use Types Packs/Day Years [...] Mass Index 28.89 02/07/2018 11:35 AM CDT Plan of Treatment Health Maintenance Due Date Last Done Comments COLOGUARD (AGES 45-75) - COL ON CA SCREENING 1950 COLON MONITORING 1950 COLONOSCOPY - COLON CA SCREENING 1952 CT COLONOGRAPHY - COLON CA SCREENING 1950 Colorectal Cancer Screening 1950 FIT - COLON CA SCREENING 1950 FLEX SIG - COLON CA SCREENING 1950 LIPID TESTING 1950 MEDICARE AWV 12 MONTHS 1950 HEPATITIS C SCREENING 07/20/1970 DTAP/TDAP/TD VACCINES (1 - Tdap) 07/25/1971 PNEUMOCOCCAL VACCINE 50+ (1 of 1 - PCV) 2002 ZOSTER VACCINE (1 of 2) 2002 AAA SCREENING 2017 SCREENING FOR DIABETES 02/07/2018 COVID-19 VACCINE ( - 2023-2 5 season) 2024 INFLUENZA VACCINE (#1) 2024 DEPRESSION SCREENING 05/20/2024 Respiratory Syncytial Virus (RSV) Vaccine Pt: or over 60 yrs (1 - 1-dose 75+ series) 07/25/2027 HEPATITIS B VACCINE Aged Out No longe r eligible based on patient's age to complete this topic HIB VACCINE Aged Out No longer eligi ble based on patient's age to complete this topic HPV VACCINE Aged Out No longer eligi ble based on patient's age to complete this topic MENINGOCOCCAL (Group B) VACCINE Aged Out No longer eligible based on patient's age to complete this topic MENINGOCOCCAL VACCINE Aged Out No maribell leonardo eligible based on patient's age to complete this topic Care Teams Mill Attendant Relationship Specialty Start Date End Date Curt Neri MD [address] [place] [phone] PCP - General Family Medicine 02/07/18
--- OUTSIDE RECORDS SUMMARY | 2024-07-27 14:57 | XMS_ITS | Referral Summary ---
Author Organization [facility] Address [address] [facility] [place] [address] Care Team Providers Care Business Improvement Manager Name Role Phone Curt Neri MD Primary Care Provider [phone] Source Comments [facility],non-owned Affiliates and Associated Physician Practices is amultiple site organization consisting of ambulatory clinics and hospital sitesin [place], [place], [place] and [place]. This disclosure is being madepursuant to the Care Everywhere program and may not contain all information available regarding this patient. Last updated 18.[facility] Allergies No known active allergies Medications * [...] 02/07/2018 11:35 AM CDT Plan of Treatment Not on file Care Teams Business Improvement Manager Relationship Specialty Start Date End Date Curt Neri MD [address] [place] [phone] PCP - General Family Medicine 02/07/18
--- OUTSIDE RECORDS SUMMARY | 2024-07-27 14:57 | XMS_ITS | Clinical Summary ---
Author Organization [facility] Address [address] [place] [address] Phone Care Team Providers Care Director Of Partner Marketing Name Role Phone LAURITA NERI MD Primary Care Provider [phone] Reason for Visit and Chief Complaint The Chief Complaint is: preop for cataract surgery on 08/07 Problems Includes: Problems addressed during this encounter and other active Problems Current Visit Onset Date Resolved Date Provider Conditio n Status Spinal Stenosis Lumbosacral 10/08/2014 LAURITA NERI MD Active Last Documented On 10/08/2014 12:25AM ; [facility] Note: Unchanged Gout 03/03/2012 LAURITA NERI MD Active Last Documented On 03/03/2012 3:18PM ; [facility] Note: Unchanged Sinus Bradycardia 03/09/2010 LAURITA NERI MD Active Last Documented On 03/09/2010 1:06PM ; [facility] Note: Unchanged Essential Hypertension Benign 03/09/2010 LAURITA NERI MD Active Last Documented On 03/09/2010 1:06PM ; [facility] Note: Unchanged Reported Family History of Heart Disease 03/09/2010 LAURITA NERI MD Inactive Last Documented On 08/25/2014 10:32AM ; [facility] Note: Unchanged Past Visits Onset Date Resolved Date Provider Condition Status Lumbago 08/25/2014 LAURITA NERI MD Active Last Documented On 08/25/2014 11:39AM ; [facility] Note: Unchanged Osteoarthritis Knee 07/07/2013 ADOLFO HERMOSILLO MD Active Last Documented On 04/27/2021 3:36PM ; [facility] Note: Unchanged - -right 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 DID WELL. I DID SEE EKG FROM A LITTLE OVER A YEAR AGO AND IT WAS GOOD OTHER THAN SINUS BRADYCARDIA. I FEEL HE IS AT LOW RISK FOR ANY PERIOPERATIVE ISSUES - Last Documented On 2023 12:35PM ; [facility] Assessments Includes: Assessments from this encounter Findings - Cataract of both eyes [H26.9 - Unspecified cataract] - Last Documented On 2023 12:35PM ; [facility] - Sinus bradycardia [I49.8 - Other specified cardiac arrhythmias] - Last Documented On 2023 12:35PM ; [facility] - Benign essential hypertension [I10 - Essential (primary) hypertension] - Last Documented On 2023 12:35PM ; [facility] - Gout [M10.9 - Gout, unspecified] - Last Documented On 2023 12:35PM ; [facility] - Lumbosacral spinal stenosis [M48.07 - Spinal stenosis, lumbosacral region] - Last Documented On 2023 12:35PM ; [facility] Medical Equipment - Implanted Devices Includes: Current Devices No Medical Equipment Recorded Medications Includes: Medications discussed during this encounter and other current Medications Current Medications (continue as prescribed) amLODIPine Besylate 10 MG Oral Tablet 10/07/2023 Provider: LAURITA NERI MD Diagnosis: Essential (prima ry) hypertension TAKE 1 TABLET BY MOUTH EVERY DAY Last Documented On 10/07/2023 5:21AM By J LUIS NERI MD ; [facility] Daily Multivitamin Oral Capsule 12/05/2020 Provider: Diagnosis: Last Documented On 12/05/2020 8:27AM By Josefa Narayan Roxy ; [facility] ZyrTEC Allergy 10 MG Oral Capsule 11/04/2019 Provide r: Diagnosis: Last Documented On 11/04/2019 8:36AM By Kailyn Clay Roxy ; [facility] Past Medications on file cloNIDine HCl 0.2 MG Oral Tablet 08/02/2023 - 01/29/2024 Provider: LAURITA NERI MD Diagnosis: Essential (prima ry) hypertension TAKE 1 TABLET BY MOUTH TWICE A DAY Last Documented On 08/02/2023 1:14AM By J LUIS NERI MD ; [facility] Metoprolol Succinate ER 25 MG Oral Tablet Extended Release 24 Hour 08/02/2023 - 01/29/2024 Provider: LAURITA NERI MD Diagnosis: Essential (prima ry) hypertension TAKE 1 TABLET BY MOUTH EVERY DAY Last Documented On 08/02/2023 1:14AM By J LUIS NERI MD ; [facility] Losartan Potassium-HCTZ 100-25 MG Oral Tablet 06/18/2023 - 12/15/2023 Provider: LAURITA NERI MD Diagnosis: Essential (prima ry) hypertension TAKE 1 TABLET BY MOUTH EVERY DAY Last Documented On 06/18/2023 1:23PM By J LUIS NERI MD ; [facility] Meloxicam 7.5 MG Oral Tablet 06/18/2023 - 12/15/2023 P rovider: LAURITA NERI MD Diagnosis: TAKE 1 TABLET BY MOUTH TWICE A DAY Last Documented On 06/18/2023 1:23PM By J LUIS NERI MD ; [facility] Medications Administered Includes: Administered Medications from this encounter No Administered Medications Recorded Vital Signs Includes: Vital Signs from this encounter Vital Name 2023 10:35A Blood Pressure Sitting L 132/78 BP Cuff Size Regular Pulse Rate-Sitting (bpm) 58 Pulse Rhythm Regular Respiration Rate (breaths/min) 21 Height (in) 74 Weight (lb) 226 Body Mass Index 29 Body Surface Area 2.3 Oxygen Saturation (%) 98 Last Documented: On 2023 10:43A M ; [facility] Results Includes: Results discussed during this encounter No Results Recorded For Specified Dates History of Present Illness Includes: History of Present Illness from this encounter AICHA PENG is a 72 year old male. - Allergy list reviewed - Problem list reviewed - Medication list reviewed - Feeling fine - No fever - and No chills - No ear symptoms - No nasal symptoms - , and No throat symptoms - No chest pain or discomfort - and No palpitations - No dyspnea - and No cough - No nausea - No vomiting - , and No abdominal pain - No musculoskeletal symptoms The patient is a 72 years old male presenting today for a preoperative exam. He is scheduled for cataract surgery to be done on 08/08/2023 and has been requesting clearance for the same. He had an incarcerated right inguinal hernia and underwent a surgical procedure for the same in June 2023. He denies any chest pain, cough, or shortness of breath. He denies any bowel and bladder incontinence. He takes sound sleep at night. Social History Description Last Updated Tobacco non-user 2023 Last Documented On 4 12:35PM ; [facility] Former smoker 02/23/2021 Last Documented On 4 11:10AM ; [facility] Stopped smoking 40 years ago 02/23/2021 Last Documented On 4 11:10AM ; [facility] Non-smoker 11/04/2019 Last Documented On 4 11:10AM ; [facility] Good exercise habits 06/24/2017 Last Documented On 4 11:10AM ; [facility] No caffeine use 06/24/2017 Last Documented On 4 11:10AM ; [facility] Not using drugs 06/24/2017 Last Documented On 4 11:10AM ; [facility] Social history unchanged 06/24/2017 Last Documented On 4 11:10AM ; [facility] Smoking Status Unknown Procedures and Surgical History Includes: Procedures from this encounter Procedures Code Diagnosis Performing Provider Service L ocation Service Date plan of care reviewed and agreed to Last Documented On 4 10:54AM ; [facility] use of tobacco assessment performed 1000F Last Documented On 4 10:45AM ; [facility] review of medications documented 1160F Last Documented On 4 10:45AM ; [facility] Reviewed & agreed to staff entries. Last Documented On 4 10:54AM ; [facility] Clinical summary provided to patient Last Documented On 4 10:54AM ; [facility] Surgical History Last Updated History of back surgery 04/19/200703/23 Last Documented On 4 11:10AM ; [facility] Medical History Includes: Medical History addressed during this encounter Description Last Updated RT ING HERNIA REPAIR WITH MESH 06/2023 Last Documented On 4 12:35PM ; [facility] Pt does not get blood pressure checked a t other facility 2023 Last Documented On 4 12:35PM ; [facility] Vaccine history 2023 Last Documented On 4 12:35PM ; [facility] Has a fear of falling. 07/19/2021 Last Documented On 4 11:10AM ; [facility] Blood pressure was high 04/27/2021 Last Documented On 4 11:10AM ; [facility] Hypertension 04/27/2021 Last Documented On 4 11:10AM ; [facility] Taking medication for high blood pressur e 04/27/2021 Last Documented On 4 11:10AM ; [facility] Has had no fall in the last 12 months. 0 11/04/2019 Last Documented On 4 11:10AM ; [facility] No recent change in medical history 09/2017 Last Documented On 4 11:10AM ; [facility] Surgery BACK SURGERY 05/08/07 03/23/2010 Last Documented On 4 11:10AM ; [facility] Family History Includes: Family History addressed during this encounter Description Last Updated Family history unchanged 09/12/2016 Last Documented On 4 11:10AM ; [facility] Family history of hypertension 0 Last Documented On 4 11:10AM ; [facility] Heart disease 03/23/2010 Last Documented On 4 11:10AM ; [facility] Review of Systems Includes: Review of Systems from this encounter Systemic: No fever, no chills, and no recent weight change. No night sweats and no edema. Head: No headache. Otolaryngeal: No earache, no nasal discharge, and no sore throat. Cardiovascular: No chest pain or discomfort and chest pain not relieved by nitroglycerin. No palpitations. Pulmonary: No shortness of breath. No cough and no wheezing. Gastrointestinal: Normal appetite and no heartburn. No nausea, no vomiting, no abdominal pain, and no diarrhea. Genitourinary: No dysuria. Musculoskeletal: No muscle aches and no localized joint pain. Neurological: No dizziness. Psychological: No sleep [...] Active Last Documented On 4 10:43AM ; [facility] Encounters Encounter Provider Location Date Check-In Time Check-Out Time Diagnosis PREOP EXAM LAURITA NERI MD [facility] 07/24/19 24 10:16AM 11:15AM Cataract Both Eyes,Essential Hypertension Benign,Spinal Stenosis Lumbosacral,Sin us Bradycardia,Gou t Insurance Includes: Active Insurance Policies Plan Name Member ID Group # Subscriber Relationship Effect guy Dates 1 - MEDICARE PART A CLAIMS/NGS [id number] LEIA Goddard 07/18/2017 - Unknown 2 - [employer] [id number] LEIA Goddard Clinical Notes Includes: Clinical Notes from this encounter * Progress note Date Encounter Last Documented by 2023 PREOP EXAM Last documented on 2023; 12:35 PM, LAURITA NERI MD; [facility] Top of Document This document represents the pre-surgical History & Physical for this patient Active Problems & Conditions - Essential Hypertension Benign - Gout - Lumbago - Nicotine Dependence in Remission - 1-2 TJ YR HX QUIT 1979 - Osteoarthritis Ankle / Foot (Multiple Joints) - BILATERAL FEET - Osteoarthritis Knee - -right - Sinus Bradycardia - Spinal Stenosis Lumbosacral - 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 History of Present Illness LEIA PENG is a 72 year old male. - Allergy list reviewed - Problem list reviewed - Medication list reviewed - Feeling fine - No fever - and No chills - No ear symptoms - No nasal symptoms - , and No throat symptoms - No chest pain or discomfort - and No palpitations - No dyspnea - and No cough - No nausea - No vomiting - , and No abdominal pain - No musculoskeletal symptoms The patient is a 72 years old male presenting today for a preoperative exam. He is scheduled for cataract surgery to be done on 08/08/2023 and has been requesting clearance for the same. He had an incarcerated right inguinal hernia and underwent a surgical procedure for the same in June 2023. He denies any chest pain, cough, or shortness of breath. He denies any bowel and bladder incontinence. He takes sound sleep at night. Current Medication - amLODIPine Besylate 10 MG Oral Tablet One tablet daily, 30 days, 5 refills - cloNIDine HCl 0.2 MG Oral [...] days, 1 refills - Metoprolol Succinate ER 25 MG Oral Tablet Extended Release 24 Hour One tablet daily, 90 days, 1 refills - ZyrTEC Allergy 10 MG Oral Capsule 0 days, 0 refills Past Medical/Surgical History Reported: No recent change in medical history. Surgery BACK SURGERY 05/08/07. Recent Events: Pt does not get blood pressure checked at other facility. Medical: Vaccine history and Hypertension. Medications: Taking medication for high blood pressure. Tests: Blood pressure was high. Physical Trauma: Has had no fall in the last 12 months. Has a fear of falling. RT ING HERNIA REPAIR WITH MESH 06/2023. Surgical: - Back surgery 04/19/2007 Social History Social history unchanged. Caffeine use: No caffeine use. Tobacco use: Former smoker stopped smoking 40 years ago and non-smoker. Drug Use: Not using drugs. Habits: Good exercise habits. Allergies - SEASONAL Family History Heart disease Family history unchanged Systemic hypertension Review Of Systems Systemic: No fever, no chills, and no recent weight change. No night sweats and no edema. Head: No headache. Otolaryngeal: No earache, no nasal discharge, and no sore throat. Cardiovascular: No chest pain or discomfort and chest pain not relieved by nitroglycerin. No palpitations. Pulmonary: No shortness of breath. No cough and no wheezing. Gastrointestinal: Normal appetite and no heartburn. No nausea, no vomiting, no abdominal pain, and no diarrhea. Genitourinary: No dysuria. Musculoskeletal: No muscle aches and no localized joint pain. Neurological: No dizziness. Psychological: No sleep disturbances. Physical Findings - Vitals taken 2023 10:35 am BP-Sitting L 132/78 mmHg 100 - 120/60 - 80 BP Cuff Size Regular Pulse Rate-Sitting 58 bpm 50 - 100 Pulse Rhythm Regular Respiration Rate 21 per min 18 - 26 Height 74 in 64 - 74 Weight 226 lbs 121 - 205 Body Mass Index 29 kg/m2 Body Surface Area 2.3 m2 Oxygen Saturation 98 % 93 - 100 General Appearance: - Well developed. - Well nourished. - In no acute distress. Eyes: General/bilateral: Extraocular Movements: - Normal. Pupils: [...] normal. Palpation: - Abdominal non-tender. Musculoskeletal System: General/bilateral: - Musculoskeletal system: normal. Neurological: - Oriented to time, place, and person. Assessment - Cataract of both eyes [H26.9 - Unspecified cataract] - Sinus bradycardia [I49.8 - Other specified cardiac arrhythmias] - Benign essential hypertension [I10 - Essential (primary) hypertension] - Gout [M10.9 - Gout, unspecified] - Lumbosacral spinal stenosis [M48.07 - Spinal stenosis, lumbosacral region] Therapy - Reviewed & agreed to staff entries. - Clinical summary provided to patient. - Plan of care reviewed and agreed to. Vaccinations - Received dose of influenza virus vaccine 01/2022 - Received dose of pneumococcal vaccine Discussed The preoperative H & P is done today in the office. No major problems are found. We will proceed with surgical intervention accordingly. Dr. Neri reviewed his lab results and updated his medication today. Discussed the risk of anesthesia and surgery with the patient in detail. Provided a clearance for surgery. The patient understands and agrees with the plan. Plan - Disposition PATIENT HAS RECENTLY HAD A RT ING HERNIA REPAIR IN 06/2023. DID WELL. I DID SEE EKG FROM A LITTLE OVER A YEAR AGO AND IT WAS GOOD OTHER THAN SINUS BRADYCARDIA. I FEEL HE IS AT LOW RISK FOR ANY PERIOPERATIVE ISSUES Other Elmer Porras scribing the following documents on behalf of Sachin Kuo MD. Practice Management Use of tobacco assessment performed Review of medications documented. Health Reminders - Assess Blood Pressure satisfied 2023. - Assess BMI satisfied 2023. - Assess Need for CT Lung Screen satisfied 2023. - Assess Tobacco Use satisfied 2023. - Flu Shot satisfied 2023. - Pneumovax satisfied 2023.
--- OUTSIDE RECORDS SUMMARY | 2024-07-27 14:57 | XMS_ITS ---
Care Plan - [facility] Created on: July 27, 2024 LEIA PENG : 1950 Sex: Male Author Organization [facility] Address [address] [place] [address] Phone Care Team Providers Care Funding Specialist Name Role Phone LAURITA YOUNGBLOOD MD Primary Care Provider [phone]
[2024-07-27 19:03] LABS: Alanine Aminotransferase 31 U/L (6-50); Albumin Level 4.3 g/dL (3.5-5.1); Alkaline Phosphatase 121 U/L (38-126); Anion Gap 12 mmol/L (4-12); Aspartate Amino Transferase 47 U/L (17-59); Bilirubin,Total 0.5 mg/dL (0.2-1.3); Blood Urea Nitrogen 14 mg/dL (9-20); CRP 0.6 mg/dL (<1.0); Calcium 8.8 mg/dL (8.4-10.2); Carbon Dioxide 24 mmol/L (22-30); Chloride 102 mmol/L (98-107); Estimated Glomerular Filt Rate > 60; Glucose 135 mg/dL (65-110); Potassium 3.6 mmol/L (3.4-5.0); Sodium 138 mmol/L (137-145); Uric Acid 6.2 mg/dL (3.5-8.5)
[2024-07-27 19:14] LABS: Immunoglobulin A 291 mg/dL (70-400); Rheumatoid Factor < 12.0 IU/ML (<12)
[2024-07-27 19:28] LABS: Add Urine Microscopic? NO; Appearance Urine Clear (Clear); Bilirubin Urine Negative (Negative); Blood Urine Negative (Negative); Color Urine Yellow (Yellow); Glucose Urine UA Negative (Negative); Hepatitis B Surface Antigen Negative (Negative); Ketones Urine Negative (Negative); Leukocyte Esterase Ur Negative LEU/UL (Negative); Nitrate Urine Negative (Negative); Protein Urine Negative (Negative); Specific Grav Ur 1.007 (1.001-1.035); Urobilinogen Urine 0.2 mg/dL (<2.0)
[2024-07-27 19:34] LABS: HAV RESULT Negative (Negative); Hepatitis B Core IgM Result Negative (Negative)
[2024-07-27 19:45] LABS: Hepatitis B Surface Anti Res Negative; Hepatitis C Virus Antibody Negative (Negative)
[2024-07-29 00:09] LABS: HLA B27 NEGATIVE (NEGATIVE)
[2024-07-29 15:14] LABS: NIL 0.04 IU/mL; Quantiferon TB Plus, 1T NEGATIVE (NEGATIVE)
[2024-07-29 17:03] LABS: Cyclic Citrullinated Peptide <16 UNITS
== END 2024-07-27 12:57 | disposition home or self-care (01) ==
PROVIDERS: PCP Family Medicine; Visit Provider Internal Medicine
DX: M13.0 Polyarthritis, unspecified (principal)
CPT/HCPCS: 36415; 80053; 80074; 81003; 82784; 84550; 86038; 86039; 86140; 86200; 86430; 86480; 86706; 86812

== ENCOUNTER 2024-07-27 13:25 | Outpatient (CLI) | payer MEDICARE, OTHER, SELFPAY ==
--- NOTE | ~2024-07-27 | XR_ITS ---
Left Hand Technique: PA and lateral views were obtained. Clinical History: Polyarthritis Findings: No acute fracture or dislocation is seen. Osseous alignment is anatomic. There is mild dege nerative change of the third DIP joint. Soft tissues are unremarkable. Impression: Mild degenerative change of the third DIP joint. Reviewed, dictated and finalized at [facility]. Impression: Mild degenerative change of the third DIP joint.
--- NOTE | ~2024-07-27 | XR_ITS ---
Lumbosacral Spine: AP and lateral views Clinical History: Pain Findings: There is minimal dextroscoliosis. There is severe degenerative disc narrowing at L5-S1. The re is severe facet arthropathy throughout the lumbar spine. There is mild degenerative change at the remaining lumbar levels.. The sacroiliac joints are normally outlined. Impression: Diffuse, severe facet arthropathy with advanced degenerative disc narrowing at L5-S1. Mild extra scoliosis. Reviewed, dictated and finalized at location . Impression: Diffuse, severe facet arthropathy with advanced degenerative disc narrowing at L5-S1. Mild extra scoliosis.
--- NOTE | ~2024-07-27 | XR_ITS ---
AP and oblique views of the SI joints CLINICAL HISTORY: Polyarthritis FINDINGS: There is probable minimal degenerative change of the SI joints. No definite erosive change. No definite sclerosis. IMPRESSION: Probable minimal degenerative change of the SI joints. Reviewed, dictated and finalized at location .
--- NOTE | ~2024-07-27 | XR_ITS ---
Cervical Spine: AP, lateral, open-mouth views Clinical History: Pain Findings: The normal lordotic curve is maintained. No fracture seen. There is 3 mm anterolisthesis of C4 over C5. There is moderate degenerative disc narrowing at C5-C6. There are mild to moderate facet joint degenerative changes.. Pre-vertebral soft tissues are unremarkable. Impression: 3 mm anterolisthesis of C4-C5. Mild to moderate degenerative change, as above. Reviewed, dictated and finalized at location . Impression: 3 mm anterolisthesis of C4-C5. Mild to moderate degenerative change, as above.
--- NOTE | ~2024-07-27 | XR_ITS ---
Right Hand Technique: PA and lateral views were obtained. Clinical History: Polyarthritis Findings: No acute fracture or dislocation is seen. Osseous alignment is anatomic. Joint there is mil d degenerative change of the interphalangeal joint of the thumb and second DIP joint.. There is focal heterotopic ossification the soft tissues of the third digit at the midportion of the third proximal phalanx. Impression: Mild degenerative changes, as above. Reviewed, dictated and finalized at location M. Impression: Mild degenerative changes, as above.
--- NOTE | ~2024-07-27 | XR_ITS ---
Left foot Technique: AP and lateral views were obtained. Clinical History: Arthritis Findings: No acute fracture or dislocation is seen. Osseous alignment is anatomic. There is severe os teoporosis arthritis of the first MTP joint. Remaining joint spaces are intact. Soft tissues are unre markable. Impression: Severe osteoarthritis of the first MTP joint. Reviewed, dictated and finalized at location . Impression: Severe osteoarthritis of the first MTP joint.
--- NOTE | ~2024-07-27 | XR_ITS ---
Right foot Technique: AP and lateral views were obtained. Clinical History: Arthritis Findings: No acute fracture or dislocation is seen. Osseous alignment is anatomic. There is advanced degenerative change of the first MTP joint.. Soft tissues are unremarkable. Impression: Advanced degenerative change of the first MTP joint. Reviewed, dictated and finalized at [facility]. Impression: Advanced degenerative change of the first MTP joint.
== END 2024-07-27 13:26 | disposition home or self-care (01) ==
LOC: GOSHIMG 13:26
PROVIDERS: PCP Family Medicine; Visit Provider Internal Medicine
DX: M13.0 Polyarthritis, unspecified (principal)
CPT/HCPCS: 72040; 72100; 72202; 73120; 73620

== ENCOUNTER 2024-08-10 12:30 | Outpatient (RCR) | payer MEDICARE, OTHER, SELFPAY ==
--- NOTE | 2024-06-17 14:41 | OPREHPOC ---
Outpatient Therapy Plan of Care This is a Multidisciplinary Plan of Care that may contain components documented by all disciplines (PT, OT, and ST.) PT Problem 1 PT Problem #1 Knowledge Deficit PT Goal 1 Goal / Goal Update 1. Pt to be IND with issued HEP Target Visit 10 PT Problem 2 PT Problem #2 Pain PT Goal 1 Goal / Goal Update 1. Pt to report back pain no greater than 3/10 in the last week 2. Pt to decline radicular symptoms in the last week. 3. Pt to improve his standing tolerance to 15 mins without an increase in pain. Target Visit 10 PT Problem 3 PT Problem #3 Impaired Range of Motion PT Goal 1 Goal / Goal Update 1. Pt to improve passive hip extension to 10 deg to improve stride length 2. Pt to improve passive hip int rot to 10 deg. Target Visit 10
--- NOTE | 2024-06-17 14:41 | PTOPEVAL1 ---
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 Had a lumbar laminectomy ~20 years ago, helps a lot, also had a MILD procedure ~5 years ago without an benefit. States static standing is his biggest difficulty. He states if he stands to long his pain increased exponentially to where the pain makes him lightheaded. His pain decreases as soon as he sits down. Has had multiple surgeons with varying opinions on if he should have a lumbar fusion or not, as of now he does not want the procedure. He states when he is standing his R thigh starts to hurt, if he keeps standing his foot goes numb, this numbness get progressively worse and moves up his legs to where he feels like he could fall over. States his pain is 0/10, 8/10 at the worst. 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 He uses a seated elliptical daily. Reported Pain Level Pain Score 0: Self Report Assessment PT Clinical Summary Pt presents to therapy today for his initial evaluation with a diagnosis of chronic low back pain. Today he demonstrates decreased passive hip ROM in all planes of motion, decreased hip strength, decreased core strength, and decreased lumbar mobility. He has decreased standing tolerance d/t being limited by pain. Skilled therapy services are indicated to address the deficits noted above, to manage pain, and to improve functional mobility. Plan of Care Interventions Electrical Stimulation,Gait Training,Hot Pack/Cold Pack,Manual Therapy,Neuro Re-education,Patient/ Caregiver Education,Therapeutic Activities, Therapeutic Exercise PT Services Indicated Yes Treatment Frequency and 2x/wk for 10 visits Duration These treatments will address the objective and functional deficits as defined above. The patient will be advanced safely and appropriately in order for the patient to progress towards his/her prior level of function. Additional exercises will be introduced and as well as a comprehensive home exercise program upon discharge, if needed, ?to ensure carryover of functional gains achieved in the clinic. This treatment plan has been reviewed and agreement upon by the patient.
--- NOTE | 2024-07-01 10:50 | PCPTNOTE ---
Patient was canceled this date due to therapist being out of clinic with illness.
--- NOTE | 2024-07-03 12:48 | PCPTNOTE ---
Pt. did not show for her Physical therapy appointment this date. Called pt. and left a voice mail and reminded pt. of her next upcoming appointment.
--- NOTE | 2024-07-15 15:29 | OPREHPOC ---
Outpatient Therapy Plan of Care This is a Multidisciplinary Plan of Care that may contain components documented by all disciplines (PT, OT, and ST.) PT Problem 1 PT Problem #1 Knowledge Deficit PT Goal 1 Goal / Goal Update 1. Pt to be IND with issued HEP 07/15/24: 1. met Target Visit 10 PT Problem 2 PT Problem #2 Pain PT Goal 1 Goal / Goal Update 1. Pt to report back pain no greater than 3/10 in the last week 2. Pt to decline radicular symptoms in the last week. 3. Pt to improve his standing tolerance to 15 mins without an increase in pain. 07/15/24: 1. met 2. not met 3. progressing Target Visit 10 PT Problem 3 PT Problem #3 Impaired Range of Motion PT Goal 1 Goal / Goal Update 1. Pt to improve passive hip extension to 10 deg to improve stride length 2. Pt to improve passive hip int rot to 10 deg. 07/15/24: 1. progressing 2. met Target Visit 10
--- NOTE | 2024-07-15 15:29 | PTOPPROG ---
Assessment and note entered by Annie Smith, PT, DPT Evaluation Information Assessment Status Progress Diagnosis chronic back pain ICD-10 Condition Codes (PT) Pain in low back M54.50,Radiculopathy, lumbar region M54.16,Pain in right hip M25.551 Subjective Information Pt reports he thinks he is doing somewhat better, states he can walk better up to a certain point. He also reports improvement when walking his dog and picking things up. He states his level of activity has still been somewhat decreased cause of the weather so its hard to tell truly how well he is doing. Assessment PT Clinical Summary Pt presents to therapy today for his progress report following 9 visits of skilled therapy to treat his chronic low back pain. Today he demonstrates improving passive hip ROM but continues to have decreased hip strength, decreased core strength, and decreased lumbar mobility. He is making slow but consistent progress towards his goals. Continuation of skilled therapy services are indicated to address continue progressing towards goals, to manage pain , and to improve functional mobility. Plan of Care Interventions Electrical Stimulation,Gait Training,Hot Pack/Cold Pack,Manual Therapy,Neuro Re-education,Patient/ Caregiver Education,Therapeutic Activities, Therapeutic Exercise PT Services Indicated Yes Treatment Frequency and 2x/wk for 10 visits Duration These treatments will address the objective and functional deficits as defined above. The patient will be advanced safely and appropriately in order for the patient to progress towards his/her prior level of function. Additional exercises will be introduced and as well as a comprehensive home exercise program upon discharge, if needed, ?to ensure carryover of functional gains achieved in the clinic. This treatment plan has been reviewed and agreement upon by the patient.
--- NOTE | 2024-08-05 14:41 | PCPTNOTE ---
Patient canceled therapy this date due to schedule conflict.
--- NOTE | 2024-08-10 14:30 | PTOPDC ---
Assessment and note entered by Annie Smith, PT, DPT Evaluation Information Assessment Status Discharge Diagnosis chronic back pain ICD-10 Condition Codes (PT) Pain in low back M54.50,Radiculopathy, lumbar region M54.16,Pain in right hip M25.551 Subjective Information Pt states he is doing great, he states he has learned a lot and knows how to move now to avoid pain. He states his low back and leg pain has improved while standing. Also states he can now shave without having to sit and rest. States at times his foot numbness will increase but is not as intense as when he started. Reported Pain Level Pain Score 0: Self Report Assessment PT Clinical Summary Pt presents to therapy today for his progress report following 15 visits of skilled therapy to treat his chronic low back pain. Today he demonstrates improved lumbar and BLE ROM. He reports still progressing pain reports. He has met or progressed well towards his therapy goals and no longer requires skilled services at this time. He will be discharged to continue his HEP. Plan of Care PT Services Indicated No
--- NOTE | 2024-08-10 14:31 | OPREHPOC ---
Outpatient Therapy Plan of Care This is a Multidisciplinary Plan of Care that may contain components documented by all disciplines (PT, OT, and ST.) PT Problem 1 PT Problem #1 Knowledge Deficit PT Goal 1 Goal / Goal Update 1. Pt to be IND with issued HEP 07/15/24: 1. met Target Visit 10 PT Problem 2 PT Problem #2 Pain PT Goal 1 Goal / Goal Update 1. Pt to report back pain no greater than 3/10 in the last week 2. Pt to decline radicular symptoms in the last week. 3. Pt to improve his standing tolerance to 15 mins without an increase in pain. 07/15/24: 1. met 2. not met 3. progressing 08/10/24: 1. met 2. progressing 3. met Target Visit 10 PT Problem 3 PT Problem #3 Impaired Range of Motion PT Goal 1 Goal / Goal Update 1. Pt to improve passive hip extension to 10 deg to improve stride length 2. Pt to improve passive hip int rot to 10 deg. 07/15/24: 1. progressing 2. met Target Visit 10
== END 2024-08-10 14:54 | disposition home or self-care (01) ==
LOC: ANHGOSHPT 12:30
PROVIDERS: PCP Family Medicine; Visit Provider Family Medicine
DX: M54.50 Low back pain, unspecified (principal); G89.29 Other chronic pain
CPT/HCPCS: 97110; 97112; 97140; 97161; 97530

== ENCOUNTER 2025-01-28 08:02 | Outpatient (CLI) | payer MEDICARE, OTHER, SELFPAY ==
--- OUTSIDE RECORDS SUMMARY | 2023-09-19 04:30 | XMS_ITS | Continuity of Care Document ---
Author Organization [facility] Address [address] [place] [phone] Phone Care Team Providers Care Construction Driver Name Role Phone Jerad HAND Radha Unavailable Unavailable Allergies, Adverse Reactions, Alerts Substance Reaction Status Criticality No Known Allergies Active No Inform ation Medications Medication Instructions Dosage Effective Dates (start - stop) Status Comments ketorolac 0.5 % eye drops instill 1 drop in the operated eye 3 times a day for 1 month; to begin after being seen in the office for first post op visit. - Active prednisolone acetate 1 % eye drops,suspension Instill 1 drop into operated eye 4 times a day for 2 weeks, then 2 times a day for 2 weeks; to begin after being seen in the office for first post op visit. - Active meloxicam 7.5 mg tablet take 2 tablet by oral route every day 15 MG - Active metoprolol tartrate 25 mg tablet take 1 tablet by oral route 2 times every day 25 MG - Active clonidine HCl 0.2 mg tablet take 1 tablet by oral route every day 0.2 MG - Active losartan 100 mg-hydrochlorothiazi de 25 mg tablet take 1 tablet by oral route every day 1.00 tablet - Active amlodipine besylate 10 mg ORAL CAPSULE once a day - Active Procedures Procedure Date Refraction Post-op Follow-up Visit Remove Cataract, Post Op Care Remove Cataract, Insert Lens,Comanaged A IOLMaster-Professional No Charge Refraction Post-op Follow-up Visit Remove Cataract, Post Op Care 4 Remove Cataract, Insert Lens,Comanaged M IOLMaster-Professional Corneal Topography Fundus Photography W/ Report No Charge Refraction Office/outpatient Visit, New IOLMaster-Technical No Charge GDX Retina Advance Directives Directive Yes / No Effective Date File Name No Information Encounters Encounter Description Practice Location Reason(s) For Visit Diagnoses Date Provider Providers Copied on [facility], [address], [place], [place], [address], tel:[phone] SEC Royal DANIELLE Professional Post-Op (chief complaint) Post op visit 4 Jerad OD Radha. [facility] [address], [address], [place], [place], [address], [place]. tel:[phone] Referring Provider: Twyla Crenshaw OD, [address], [address]. tel:[phone] [facility], [address], [place], [place], [address], [place] tel:[phone] SEC Royal SHASHI Professional 1 Day CE/IOL PO (chief complaint) Post op visit 4 Jerad PEACE ChandraRadha. [address], [address], [place], [place], [address], [place]. tel:[phone] Referring Provider: Twyla Crenshaw OD, [address], [address]. tel:[phone] [facility], [address], [place], [place], [address], tel:[phone] [facility] No Information 4 Betty Lira. [address], [address], [place], [place], [address], [place]. tel:[phone] Referring Provider: Twyla Crenshaw OD, [address], [address]. tel:[phone] [facility], [address] [place], [place] [address] [address], [place], [place], [address], tel:[phone] [place] No Information 4 Betty Lira. [address], [address], [place], [place], [address], [place]. tel:[phone] Referring Provider: Agustin Crenshaw OD, [address], [address]. tel:[phone] [facility], [facility] [facility] [address], [place], [place], [address], tel:[phone] SEC Royal DANIELLE Professional Post-Op (chief complaint) Post op visit 4 Cate OD Carly. [address] [place] [address] [address], [address], [place], [place], [address], [place]. tel:[phone] Referring Provider: Twyla Crenshaw OD, [facility] [address] [place] [address], [address]. tel:[phone] [facility], [address], [place], [place], [address], [place] tel:[phone] SEC Royal DANIELLE Professional 1 Day CE/IOL PO (chief complaint) Post op visit 4 Jerad OD Radha. [facility] [address], [address], [place], [place], [address], [place]. tel:[phone] Referring Provider: Twyla Crenshaw OD, [facility] [address] [place] [address], [address]. tel:[phone] [facility], [address], [place], [place], [address], [place] tel:[phone] [facility] No Information Jul- 4 Betty Pankaj. [address], [address], [place], [place], [address], [place]. tel:[phone] Referring Provider: Twyla Crenshaw OD, [facility] [address] [place], [address]. tel:[phone] [facility], [address], [place], [place], [address], [place] tel:[phone] [place] No Information Jul- 4 Betty Pankaj. [address], [address], [place], [place], [address], [place]. tel:[phone] Referring Provider: Agustin Crenshaw OD, [address], [address]. tel:[phone] [facility], [address], [place], [place], [address], [place] tel:[phone] [place] No Information Jul- 4 Betty Pankaj. [address], [address], [place], [place], [address], [place]. tel:[phone] Office/outpa tient Visit, [facility], [address], [place], [place], [address], [place] tel:[phone] SEC Royal DANIELLE Professional Cataract evaluation (chief complaint) Age-related nuclear cataract, bilateralCho rioretinal scar of right eye 4 Betty Pankaj. [address], [address], [place], [place], [address], [place]. tel:[phone] Referring Provider: Twyla Crenshaw OD, [facility] [address] [place], [address]. tel:[phone] [facility], [address], [place], [place], [address], [place] tel:[phone] SEC Edgardo [place] No Information 3 Betty Lira. [address], [address], [place], [place], [address], [place]. tel:[phone] Referring Provider: Agustin Crenshaw OD, [facility], [address]. tel:[phone] Family History Family Member Type Diagnosis Age At Onset Problem Family history of Diabetes m juana Payers Payer name Insurance type Covered alliance party ID Authoriza tion(s) No Information Social History Type Description Quantity Date Captured Comments Alcohol Use Details No Caffeine Use Details Tobacco Use Status Chews tobacco Smoking Status Never smoker Non-Smoking Tobacco Use Details Chewing: No Details Available Chewin Units per day Sex Male Chief Complaint And Reason For Visit From encounter dated '09/19/2023 09:30'. Post-Op (chief complaint). Description: The 73 year old patient presents for evaluation of 2 week CE/IOL STD Post-Op in the left eye. Pt using Pred QID OS and Ketorolac TID OS. Pt states he has noticed improvement since his 1 day po OS and is very pleased. Would like this glasses Rx. Reason For Referral Reason For Referral No Information Plan Of Treatment Date Type Action Status Goal Tobacco cessation counseling completed Goal Tobacco cessation counseling completed Goal Tobacco cessation counseling completed Goal Tobacco cessation counseling completed Goal Tobacco cessation counseling completed Goal Tobacco cessation counseling completed Appointment Shashi Weinstein BOOKED History Of Present Illness Encounter Date Complaint History Of Prese nt Illness Post-Op The 73 year old patient presents for evaluation of 2 week CE/IOL STD Post-Op in the left eye. Pt using Pred QID OS and Ketorolac TID OS. Pt states he has noticed improvement since his 1 day po OS and is very pleased. Would like this glasses Rx. 1 Day CE/IOL PO The 73 year old patient presents for evaluation of 1 Day CE/IOL PO in the left eye. Pt states there was a slight pain in OS yesterday and today almost like a eyelash in OS. Pt states that vision in OS is still pretty blurry. Pt has all gtts and understands how to take them as instructed. Post-Op The 73 year old patient presents for a 2 week post op CE OD. Patient is using Ketorolac tid OD and Pred bid OD. Patient states OD is doing well. Patient wishes to proceed with CE OS. Patient is bothered by glare around lights at night x 8 months. Patient has a hard time seeing the words on TV and seeing road signs. 1 Day CE/IOL PO The 73 year old patient presents for evaluation of 1 Day CE/IOL PO in the right eye. Pt states slight pain or discomfort yesterday but that is gone today. Pt states that vision does seem better and brighter than before. Pt has all gtts and understands how to take them as instructed. Cataract evaluation The 72 year old patient presents for evaluation of Cataract evaluation in the right eye and left eye. Patient states vision has gotten worse over the last year OU. Went to a wedding last fall and had to drive home at night in the rain and it was very difficult. Patient states night time driving is worse, notices glare around headlights. Patient has trouble reading and seeing print on tv, even when wearing glasses. Pt struggles to see road signs even when wearing glasses. Denies pain/discomfort. Pt has Refresh to use PRN OU. Sometimes notices a film over vision, improves when wiping the eyelids. Functional Status Date Functional Assessmen t No Information Instructions Date Instruction Additional Infor katie Impression/Plan Impression/Plan Impression/Plan Impression/Plan Impression/Plan Assessments Type Assessment Date assessment Post op visit Patient Care Teams Name Effective Dates (start - stop) Status Members No Information
--- OUTSIDE RECORDS SUMMARY | 2025-01-28 08:25 | XMS_ITS | Clinical Summary ---
Author Organization [facility] Address [address] [place] [address] Care Team Providers Care Video Camera Operator Name Role Phone Curt Neri MD Unavailable [phone] Amrit Marroquin MD Primary Care Provider Allergies No known active allergies Medications multivitamin capsule Take 1 capsule by mouth daily Active olmesartan-amL ODIPin-hcthiaz id 40-10-25 mg tablet Take 1 tablet by mouth daily [address] (CYMBALTA) 60 mg capsule Take 1 capsule (60 mg total) by mouth daily Active cetirizine (ZyrTEC) 10 mg chewable tablet Take 1 tablet (10 mg total) by mouth daily Active metoprolol XL (TOPROL-XL) 25 mg extended release tablet Take 1 tablet (25 mg total) by mouth 4 Active oxyCODONE (ROXICODONE) 5 mg immediate release tabletIndicati ons:Pain Take 1 tablet (5 mg total) by mouth every 4 (four) hours as needed for pain 10 tablet 5 01/26/20 25 Discontinued Active Problems Problem Noted Date Diagnosed Date Trigger index finger of right hand 12/28/2024 Trigger ring finger of right hand 12/28/2024 Asymptomatic varicose veins of bilateral lower e [...] Left lower extremity venous duplex / 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 Pending this he may benefit from a GSV ablation stab phlebectomies. Encounters Date Type Department Care Team Description 01/25/2025 1:00 PM CDT Office Visit [facility] Hand Surgery [address] [place] [phone] Saniya Canchola PA Right hand pain (Primary Dx) 01/13/2025 9:10 AM CDT - 01/13/2025 10:00 AM CDT Surgery [facility] [place] [address] [place] [id number] Taylor Dillard MD RELEASE RIGHT INDEX, RIGHT MIDDLE, AND RIGHT RING A1 RONAK 01/13/2025 9:04 AM CDT Anesthesia Event [facility] [place] [address] [place] [id number] Wendy Ashley MD 01/13/2025 7:45 AM CDT - 01/13/2025 10:00 AM CDT Hospital Encounter [facility] [place] [address] [place] [phone] Taylor Dillard MD Trigger index finger of right hand (Primary Dx); Trigger ring finger of right hand Discharge Disposition: Discharge to home or self care 12/28/2024 11:00 AM CDT Office Visit [facility] Hand Surgery [address] [place] [phone] Taylor Dillard MD Right hand pain (Primary Dx) 12/28/2024 10:40 AM CDT - 12/28/2024 11:59 PM CDT Hospital Encounter [facility] 1 DIAG IMG [address] [place] [address], [place] [address] Right hand pain Discharge Disposition: Discharge to home or self care from Last 3 Months Immunizations Immunization Administration Dates Next Due Hep [...] Not Answered Personal Safety Answer Date Recorded Have you ever been in or are you currently in a harmful physical or emotional relationship or is someone making you feel afraid or unsafe? 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 Gender Identity Not on file Sexual Orientation Not on file Obstetrics History Last Filed Vital Signs Vital Sign Reading Time Taken Comments Blood Pressure 158/84 01/13/2025 9:56 AM CDT Pulse 49 01/13/2025 9:56 AM CDT Temperature 36.1 C (97 F) 01/13/2025 9:45 AM CDT Respiratory Rate 16 01/13/2025 9:56 AM CDT Oxygen Saturation 98% 01/13/2025 9:56 AM CDT Inhaled Oxygen Concentration - - Weight 106.3 kg (234 lb 6.4 oz) 01/13/2025 8:05 AM CDT Height 188 cm (6' 2) 08/07/2023 10:38 AM CDT Body Mass Index 30.1 08/07/2023 10:38 AM CDT Plan of Treatment Health Maintenance Due Date Last Done Comments Colon Cancer Screening-Colonoscopy 1950 Depression Screening 1950 Hepatitis C Screening 1950 Abdominal Aortic Aneurysm (A AA) Screen 2017 Well Visit 65+ 2017 Zoster Vaccine (3 of 3) 03/04/2018 01/07/2018, 10/30 Covid-19 Vaccine (2024-2 6 season) 2025 10/02/2021, 03/11/2021, 08/08/2020, Additional history exists Influenza Vaccine (#1) 2025 , 01/26/2020, 02/17/2019, Additional history exists Fall Risk Assessment 01/13/2026 01/13/2025 DTaP/Tdap/Td Vaccine (3 - Td or Tdap) 04/19/2033 04/19/2023, 04/28/2013 Hepatitis B Screening Completed 10/19/1996 , 05/18/1996, 04/20/1996 Pneumococcal vaccine 65+ Completed 02/17/2019, 02/17 Procedures Procedure Name Priority Date/Time Associated Diagnosis Comments RELEASE TRIGGER FINGER 01/13/2025 9:04 AM CDT Trigger index finger of right hand Trigger ring finger of right hand Case Notes LOCAL 30 MINSRIGHT INDEX AND RIGHT RING A1 RONAK RELEASE XR HAND RIGHT 3 OR MORE VIEWS Schedule Routine, Read Routine (OP Routine) 12/28/2024 10:56 AM CDT Right hand pain XR HAND LEFT 3 OR MORE VIEWS Schedule Routine, Read Routine (OP Routine) 12/28/2024 10:56 AM CDT Right hand pain from Last 3 Months Results * XR Hand Right 3 or More Views (12/28/2024 10:56 AM CDT) Anatomical Region Laterality Modality Upper Extremities, Hand Right Computed Radiography 12/29/2024 6:00 AM CDT Narrative 12/29/2024 6:02 AM CDT EXAM DESCRIPTION: 1. XR HAND LEFT 3 OR MORE VIEWS; 2. XR HAND RIGHT 3 OR MORE VIEWS REASON FOR STUDY: pain Trigger finger of 2nd and 4th phalanges of left hand x 2 months ; pain Trigger finger of 1st and 4th phalanges, pain of 3rd phalange x 2.5 years on right hand FINDINGS: Three views each hand submitted with comparison 05/27/2023. Left hand: No erosions. No acute fracture. Mild basal thumb joint osteoarthritis. Mild 1st metacarpophalangeal and polyarticular interphalangeal joint osteoarthritis. No dorsal wrist soft tissue swelling. Right hand: No erosions. No acute fracture. Alignment is normal. Mild basal thumb joint osteoarthritis. Polyarticular interphalangeal joint osteoarthritis. Soft tissue calcifications at the radial aspect of the long finger middle phalanx noted. IMPRESSION: 1. No radiographic evidence of inflammatory arthritis. 2. 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 3. Nonspecific soft tissue calcification radial to the long finger proximal phalanx. THIS IS AN ELECTRONICALLY VERIFIED FINAL REPORT 12/29/2024 6:02 AM - Electronically signed by Jon CUEVA: ANAY Report ID: [id number] Reading Location: [id number] Procedure Note Jon Melgar MD - 12/29/2024 EXAM DESCRIPTION: 1. XR HAND LEFT 3 OR MORE VIEWS; 2. XR HAND RIGHT 3 OR MORE VIEWS REASON FOR STUDY: pain Trigger finger of 2nd and 4th phalanges of left hand x 2 months ; pain Trigger finger of 1st and 4th phalanges, pain of 3rd phalange x 2.5 yearson right hand FINDINGS: Three views each hand submitted with comparison 05/27/2023. Left hand: No erosions. No acute fracture. Mild basal thumb joint osteoarthritis.Mild 1st metacarpophalangeal and polyarticular interphalangeal joint osteoarthritis. No dorsal wrist soft tissue swelling. Right hand: No erosions. No acute fracture. Alignment is normal. Mild basal thumbjoint osteoarthritis. Polyarticular interphalangeal joint osteoarthritis. Soft tissue calcifications at the radial aspect of the long finger middlephalanx noted. IMPRESSION: 1. No radiographic evidence of inflammatory arthritis. 2. 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 3. Nonspecific soft tissue calcification radial to the long fingerproximal phalanx. THIS IS AN ELECTRONICALLY VERIFIED FINAL REPORT 12/29/2024 6:02 AM - Electronically signed by Jon Melgar M.D. MF: ANAY Report ID: [id number] Reading Location: [id number] Taylor Manuela Dillard MD IMG XR PROCEDURES Final R esult * XR Hand Left 3 or More Views (12/28/2024 10:56 AM CDT) Anatomical Region Laterality Modality Upper Extremities, Hand Left Computed Radiography 12/29/2024 6:00 AM CDT Narrative 12/29/2024 6:02 AM CDT EXAM DESCRIPTION: 1. XR HAND LEFT 3 OR MORE VIEWS; 2. XR HAND RIGHT 3 OR MORE VIEWS REASON FOR STUDY: pain Trigger finger of 2nd and 4th phalanges of left hand x 2 months ; pain Trigger finger of 1st and 4th phalanges, pain of 3rd phalange x 2.5 years on right hand FINDINGS: Three views each hand submitted with comparison 05/27/2023. Left hand: No erosions. No acute fracture. Mild basal thumb joint osteoarthritis. Mild 1st metacarpophalangeal and polyarticular interphalangeal joint osteoarthritis. No dorsal wrist soft tissue swelling. Right hand: No erosions. No acute fracture. Alignment is normal. Mild basal thumb joint osteoarthritis. Polyarticular interphalangeal joint osteoarthritis. Soft tissue calcifications at the radial aspect of the long finger middle phalanx noted. IMPRESSION: 1. No radiographic evidence of inflammatory arthritis. 2. 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 3. Nonspecific soft tissue calcification radial to the long finger proximal phalanx. THIS IS AN ELECTRONICALLY VERIFIED FINAL REPORT 12/29/2024 6:02 AM - Electronically signed by Jon Melgar M.D. MF: ANAY Report ID: [id number] Reading Location: [id number] Procedure Note Jon Melgar MD - 12/29/2024 EXAM DESCRIPTION: 1. XR HAND LEFT 3 OR MORE VIEWS; 2. XR HAND RIGHT 3 OR MORE VIEWS REASON FOR STUDY: pain Trigger finger of 2nd and 4th phalanges of left hand x 2 months ; pain Trigger finger of 1st and 4th phalanges, pain of 3rd phalange x 2.5 yearson right hand FINDINGS: Three views each hand submitted with comparison 05/27/2023. Left hand: No erosions. No acute fracture. Mild basal thumb joint osteoarthritis.Mild 1st metacarpophalangeal and polyarticular interphalangeal joint osteoarthritis. No dorsal wrist soft tissue swelling. Right hand: No erosions. No acute fracture. Alignment is normal. Mild basal thumbjoint osteoarthritis. Polyarticular interphalangeal joint osteoarthritis. Soft tissue calcifications at the radial aspect of the long finger middlephalanx noted. IMPRESSION: 1. No radiographic evidence of inflammatory arthritis. 2. 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 3. Nonspecific soft tissue calcification radial to the long fingerproximal phalanx. THIS IS AN ELECTRONICALLY VERIFIED FINAL REPORT 12/29/2024 6:02 AM - Electronically signed by Jon Melgar M.D. MF: ANAY Report ID: [id number] Reading Location: [place] [address] [place] Taylor Dillard MD IMG XR PROCEDURES Final R esult from Last 3 [place] [address] MEDICARE [facility] MEDICARE [employer]IC[employer] Care Teams Video Camera Operator Relationship Specialty Start Date End Date Amrit Marroquin MD [id number] [facility] [address] [place] [address] PCP - General Family Practice 12/28/24 Curt Neri MD 08/17/16
[2025-01-28 19:16] LABS: Hematocrit 44.5 % (42.0-52.0); Hemoglobin 14.1 g/dL (14.0-18.0); Immature Granulocyte Percent A 0.3 % (0-0.5); Lymphocytes Absolute Auto 1.93 K/mm3 (0.9-3.2); Mean Corpuscular HGB Conc 31.7 g/dl (32-36); Mean Corpuscular Hemoglobin 28.2 pg (26-34); Mean Corpuscular Volume 89.0 fl (80-100); Nucleated Red Blood Cells Absolute Auto 0.000 K/mm3 (0.0-0.012); Nucleated Red Blood Cells Perc 0.0 % (0.0-0.2); Platelet Count Result 326 k/mm3 (150-375); Red Blood Count 5.00 M/mm3 (4.6-6.20); White Blood Count 7.3 K/mm3 (4.5-10.0)
[2025-01-28 19:52] LABS: Alanine Aminotransferase 27 U/L (6-50); Albumin Level 4.2 g/dL (3.5-5.1); Alkaline Phosphatase 111 U/L (38-126); Anion Gap 8 mmol/L (4-12); Aspartate Amino Transferase 29 U/L (17-59); Bilirubin,Total 0.5 mg/dL (0.2-1.3); Blood Urea Nitrogen 15 mg/dL (9-20); Calcium 9.1 mg/dL (8.4-10.2); Carbon Dioxide 27 mmol/L (22-30); Chloride 105 mmol/L (98-107); Cholesterol 188 mg/dL (0-200); Estimated Glomerular Filt Rate > 60; Glucose 121 mg/dL (65-110); HDL Direct 46 mg/dL; Potassium 4.0 mmol/L (3.4-5.0); Sodium 140 mmol/L (137-145); Total Protein 7.1 g/dL (6.3-8.2); Triglycerides 55 mg/dL (<150)
[2025-01-28 20:27] LABS: Prostate Specific Antigen 0.6 ng/mL (< OR = 4.0)
[2025-01-28 20:38] LABS: Hemoglobin A1C 6.6 % (<5.7)
[2025-01-28 20:42] LABS: Thyroid Stimulating Hormone Reflex 1.530 uIU/mL (0.465-4.68)
[2025-01-28 20:46] LABS: Vitamin B12 368.0 pg/mL (239-931)
== END 2025-01-28 08:03 | disposition home or self-care (01) ==
LOC: ANHGOSHLAB 08:03
PROVIDERS: PCP Family Medicine; Visit Provider Family Medicine
DX: Z12.5 Encounter for screening for malignant neoplasm of prostate (principal); I10 Essential (primary) hypertension; E55.9 Vitamin D deficiency, unspecified; E78.5 Hyperlipidemia, unspecified; E53.8 Deficiency of other specified B group vitamins; R73.03 Prediabetes
CPT/HCPCS: 36415; 80053; 80061; 82306; 82607; 83036; 84153; 84443; 85025; G0103

== ENCOUNTER 2025-04-08 14:30 | Outpatient (RCR) | payer MEDICARE, OTHER, SELFPAY ==
--- NOTE | 2025-02-09 14:21 | OTOPEVAL1 ---
Assessment and note entered by Bobo Carrillo, OTR/L, CHT Evaluation Information Assessment Status Evaluation Diagnosis (R) hand pain Subjective Information Patient is about 1 month s/p trigger finger release of the right hand, digits II-IV. He is right handed. He reports residual stiffness and pain that limits return of functional use. 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 He reports he has been favoring his left hand due to feeling weak. 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 Reported Pain Level Pain Score 0: Self Report Additional Pain Score Comments No pain at rest. Pain with use, especially gripping or if his fingers get pushed backwards. Assessment OT Clinical Summary Patient referred to OT following right hand, digits II, III, and IV trigger finger release ~1 month ago. He presents with a decline in right/ dominant hand use due to residual pain, stiffness, and weakness. Educated on HEP for tendon glides, mobilization to PIP joints to reduce stiffness, scar massage, use of heat/ice, and stretching. Patient reports he is going out of town for 3 weeks and will be unable to attend regular follow ups. Also issued putty HEP for patient to progress to as his flexibility increases and pain reduces. Plan to see patient for a re-evaluation in 1 month to assess progress and evaluate readiness for discharge vs continued follow up appointments. Plan of Care Interventions Therapeutic Exercise,Manual Therapy,Therapeutic Activities,Hot Pack/Cold Pack,Ultrasound,Paraffin OT Services Indicated Yes Treatment Frequency and Patient reports he is going out of town for 3 Duration weeks and will be unable to attend regular follow ups. Plan to see patient for a re-evaluation in 1 month to assess progress and evaluate readiness for discharge vs continued follow up appointments. These treatments will address the objective and functional deficits as defined above. The patient will be advanced safely and appropriately in order for the patient to progress towards his/her prior level of function. Additional exercises will be introduced and as well as a comprehensive home exercise program upon discharge, if needed, ?to ensure carryover of functional gains achieved in the clinic. This treatment plan has been reviewed and agreement upon by the patient.
--- NOTE | 2025-02-09 14:21 | OPREHPOC ---
Outpatient Therapy Plan of Care This is a Multidisciplinary Plan of Care that may contain components documented by all disciplines (PT, OT, and ST.) OT Problem 1 OT Problem #1 Knowledge Deficit OT Goal 1 Goal / Goal Update 1. Patient to be independent with instructed materials. Target Visit 2 OT Problem 2 OT Problem #2 Pain OT Goal 1 Goal / Goal Update 1. Patient to report pain no greater than 1/10 with ADLs. Target Visit 2 OT Problem 3 OT Problem #3 Impaired Strength OT Goal 1 Goal / Goal Update 1. 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 Target Visit 2 OT Problem 4 OT Problem #4 Impaired Flexibility OT Goal 1 Goal / Goal Update 1. Patient to increase functional flexibility of the right hand/PIP joints as measured by progressing to less than 25 degree extension lag at the PIP joint 2. Patient to increase functional flexibility of the right hand as measured by progressing to less than 0.5 cm gap with hook fist. Target Visit 2
--- NOTE | 2025-03-16 14:59 | OTOPPROG ---
Assessment and note entered by Bobo Carrillo, OTR/[place], CHT Evaluation Information Assessment Status Progress Diagnosis (R) hand pain Subjective Information Patient is about 2 month s/p trigger finger release of the right hand, digits II-IV. He is right handed. He attended the initial evaluation and was issued a HEP. He did not follow up until today due to traveling. He reports improvements in his hand function, ROM, and strength. 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 Assessment OT Clinical Summary Patient referred to OT following right hand, digits II, III, and IV trigger finger release ~2 months ago. He presents today after completing HEP x1 month for which he admits he didn't do it as regularly as he should. Patient demonstrates improvements with finger extension ROM, hook fist ROM, and gross corporate communications associate strength. He responds very well to heat, manual mobilizations, stretching, and ROM, making ROM gains after our session today. Recommending regular follow up for use of modalities, manual treatment, therapeutic exercise , HEP education/progression to facilitate optimal functional flexibility and strength of his right, dominant hand.. Plan of Care Interventions Therapeutic Exercise,Manual Therapy,Therapeutic Activities,Hot Pack/Cold Pack,Ultrasound,Paraffin OT Services Indicated Yes Treatment Frequency and 1-2x/week for 6 visits Duration These treatments will address the objective and functional deficits as defined above. The patient will be advanced safely and appropriately in order for the patient to progress towards his/her prior level of function. Additional exercises will be introduced and as well as a comprehensive home exercise program upon discharge, if needed, ?to ensure carryover of functional gains achieved in the clinic. This treatment plan has been reviewed and agreement upon by the patient.
--- NOTE | 2025-03-16 14:59 | OPREHPOC ---
Outpatient Therapy Plan of Care This is a Multidisciplinary Plan of Care that may contain components documented by all disciplines (PT, OT, and ST.) OT Problem 1 OT Problem #1 Knowledge Deficit OT Goal 1 Goal / Goal Update 1. Patient to be independent with instructed materials. ---OT POC UPDATE 03/16/25--- 1. Met, questionable compliance, continue to monitor as HEP is progressed. Target Visit 8 OT Problem 2 OT Problem #2 Pain OT Goal 1 Goal / Goal Update 1. Patient to report pain no greater than 1/10 with ADLs. ---OT POC UPDATE 03/16/25--- 1. Progressing, but not met, continue goal Target Visit 8 OT Problem 3 OT Problem #3 Impaired Strength OT Goal 1 Goal / Goal Update 1. 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 ---OT POC UPDATE 03/16/25--- 1. 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 Target Visit 8 OT Problem 4 OT Problem #4 Impaired Flexibility OT Goal 1 Goal / Goal Update 1. Patient to increase functional flexibility of the right hand/PIP joints as measured by progressing to less than 25 degree extension lag at the PIP joint 2. Patient to increase functional flexibility of the right hand as measured by progressing to less than 0.5 cm gap with hook fist. ---OT POC UPDATE 03/16/25--- 1. Met with index and middle; ring measuring -25; UPGRADE GOAL to -15 deg or less at the PIP joints 2. Progressed to 1.0 cm gap with index and middle; Not met, continue goal Target Visit 8
--- NOTE | 2025-04-08 15:08 | OTOPDC ---
Assessment and note entered by Bobo Carrillo, OTR/[place], CHT Evaluation Information Assessment Status Discharge Diagnosis (R) hand pain Subjective Information Patient reports improvements in right hand function and strength. He reports less pain. He reports his stiffness has remained unchanged however. He states he can use heat and perform his ROM HEP and there is temporary improvements in his ROM, but that it always goes back to being stiff and being able to fully extend at the PIP joints of the middle and ring fingers. Reported Pain Level Pain Score 1: Self Report Assessment OT Clinical Summary Patient wishes to wrap care up today due to feeling like there have been no changes. ROM measurements today have regressed back to the start of care back in January. Patient continues to have swelling and stiffness in the middle and ring fingers in his right hand. 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 Educated on trialing a compression glove along with continuing his HEP. Reviewed HEP. Recommending he continue his HEP through the end of the year. D/C OT per patient request. Plan of Care OT Services Indicated No
== END 2025-04-09 10:26 | disposition home or self-care (01) ==
LOC: ANHGOSHOT 14:30
PROVIDERS: PCP Family Medicine
DX: M79.641 Pain in right hand (principal)
CPT/HCPCS: 97018; 97110; 97140; 97165